=== PATIENT | male | born 1960 | race Caucasian/White ===

== ENCOUNTER 2020-10-09 06:13 | Outpatient (REF) | payer MEDICARE, SELFPAY ==
[2020-10-09 11:35] LABS: Alanine Aminotransferase 36 U/L (0-40); Alkaline Phosphatase 61 U/L (39-117); Aspartate Amino Transferase 20 U/L (5-37); Bilirubin Direct 0.2 mg/dL (0.0-0.5); Bilirubin Total 0.3 mg/dL (0.0-1.0); Blood Urea Nitrogen 28 mg/dL (9-16); Cholesterol 117 mg/dL; Estimated Glomerular Filt Rate > 60; HDL Cholesterol 42 mg/dL; LDL Cholesterol Calculated 49 mg/dl; Total Protein 6.2 g/dL (6.5-8.0); Triglycerides 133 mg/dL
[2020-10-09 11:50] LABS: Reflex LDLD? No
== END 2020-10-09 06:14 | disposition home or self-care (01) ==
LOC: HO.HMGCLDS 06:13
PROVIDERS: PCP Internal Medicine; Visit Provider Internal Medicine
DX: E78.00 Pure hypercholesterolemia, unspecified (principal); R79.9 Abnormal finding of blood chemistry, unspecified
CPT/HCPCS: 80061; 80076; 82565; 84520

== ENCOUNTER 2020-11-15 06:22 | Outpatient (REF) | payer MEDICARE, SELFPAY ==
[2020-11-15 08:47] LABS: Anion Gap 14 (12-20); Blood Urea Nitrogen 33 mg/dL (9-16); Carbon Dioxide 23 mmol/L (22-29); Chloride 106 mmol/L (96-108); Estimated Glomerular Filt Rate > 60; Potassium 5.2 mmol/l (3.3-5.1); Sodium 138 mmol/L (135-145)
== END 2020-11-15 06:23 | disposition home or self-care (01) ==
LOC: HO.LAB 06:22
PROVIDERS: Visit Provider Internal Medicine
DX: R79.89 Other specified abnormal findings of blood chemistry (principal)
CPT/HCPCS: 36415; 80051; 82565; 84520

== ENCOUNTER 2020-12-18 10:32 | Outpatient (REF) | payer MEDICARE, SELFPAY ==
[2020-12-18 12:03] LABS: Blood Urea Nitrogen 26 mg/dL (9-16); Estimated Glomerular Filt Rate > 60; Potassium 4.6 mmol/L (3.3-5.1)
== END 2020-12-18 10:33 | disposition home or self-care (01) ==
LOC: HO.LNP 10:32
PROVIDERS: Visit Provider Internal Medicine
DX: R79.89 Other specified abnormal findings of blood chemistry (principal)
CPT/HCPCS: 82565; 84132; 84520

== ENCOUNTER 2021-03-29 10:48 | Outpatient (REF) | payer MEDICARE, SELFPAY ==
[2021-03-29 11:14] LABS: MANUAL DIFF FLAG NO
[2021-03-29 12:25] LABS: Basophils Absolute Auto 0.1 X10*3/uL (0.0-0.2); Basophils Percent Auto 0.7 % (0-2); Eosinophils Absolute Auto 0.7 X10*3/uL (0.0-0.4); Eosinophils Percent Auto 10.1 % (0-4); Hematocrit 34.6 % (42-52); Hemoglobin 9.8 g/dl (14.0-18.0); Imm Gran Abs Auto 0.02 X10*3/uL (0.00-0.03); Imm Gran Pct Auto 0.3 % (0.0-0.4); Lymphocytes Absolute Auto 1.1 X10*3/uL (1.2-4.9); Lymphocytes Percent Auto 16.7 % (20-40); Mean Corpuscular HGB Conc 28.3 g/dl (31.0-36.0); Mean Corpuscular Hemoglobin 22.4 pg (27.0-33.0); Mean Corpuscular Volume 79.2 fL (80-98); Mean Platelet Volume 11.3 fL (9.4-12.4); Monocytes Absolute Auto 0.8 X10*3/uL (0.1-1.2); Monocytes Percent Auto 11.1 % (2-11); Neutrophils Absolute Auto 4.1 X10*3/uL (2.0-8.3); Neutrophils Percent Auto 61.1 % (45-73); Platelet Count 318 X10*3/uL (160-400); Red Blood Count 4.37 X10*6/uL (4.60-5.80); Red Cell Distribution Width 17.2 % (11.0-16.0); White Blood Count 6.8 X10*3/uL (4.8-10.8)
[2021-03-29 12:37] LABS: Estimated Average Glucose 105 mg/dL; Hemoglobin A1c % 5.3 %
[2021-03-29 12:56] LABS: Alanine Aminotransferase 25 U/L (0-40); Albumin Level 3.7 g/dL (3.5-5.0); Alkaline Phosphatase 72 U/L (39-117); Anion Gap 14 (12-20); Aspartate Amino Transferase 20 U/L (5-37); Bilirubin Total 0.5 mg/dL (0.0-1.0); Blood Urea Nitrogen 19 mg/dL (9-16); Calcium 9.8 mg/dL (8.4-10.2); Carbon Dioxide 22 mmol/L (22-29); Chloride 107 mmol/L (96-108); Estimated Glomerular Filt Rate > 60; Glucose Fasting 104 mg/dL (60-99); Iron 82 mcg/dL (45-160); Percent Iron Saturation 18 % (15-50); Potassium 4.6 mmol/L (3.3-5.1); Sodium 138 mmol/L (135-145); Total Iron Binding Capacity 455 mcg/dL (228-428); Total Protein 5.9 g/dL (6.5-8.0); Unsaturated Iron Binding 373 ug/dL
[2021-03-29 12:57] LABS: Glucose Urine UA NEG (NEG); Leukocyte Esterase Urine NEG (NEG); Nitrite Urine NEG (NEG); Specific Gravity - Urine 1.015 (1.005-1.025); Urine Blood NEG (NEG); Urine Ketones NEG (NEG); Urine Protein NEG (NEG-TRACE)
[2021-03-29 13:06] LABS: Appearance Urine CLEAR; Color Urine YELLOW
[2021-03-29 13:17] LABS: PSA,Total (Free>4and<10) 2.72 ng/mL (0.00-4.00)
[2021-03-29 13:34] LABS: Creatinine Urine 96.25 mg/dL; Microalbum/Creatinine Ratio Ur 10.3 ug/mg cr
== END 2021-03-29 10:49 | disposition home or self-care (01) ==
LOC: HO.LNP 10:48
PROVIDERS: PCP Internal Medicine; Visit Provider Internal Medicine
DX: Z00.00 Encounter for general adult medical examination without abnormal findings (principal); Z12.5 Encounter for screening for malignant neoplasm of prostate; R73.03 Prediabetes; I10 Essential (primary) hypertension; E78.00 Pure hypercholesterolemia, unspecified; D50.9 Iron deficiency anemia, unspecified
CPT/HCPCS: 80053; 81003; 82043; 83036; 83540; 84153; 85025

== ENCOUNTER 2021-10-07 10:06 | Outpatient (REF) | payer MEDICARE, SELFPAY ==
[2021-10-07 11:12] LABS: Alanine Aminotransferase 24 U/L (0-40); Albumin Level 3.6 g/dL (3.5-5.0); Alkaline Phosphatase 62 U/L (39-117); Aspartate Amino Transferase 19 U/L (5-37); Bilirubin Direct < 0.2 mg/dL (0.0-0.5); Bilirubin Total 0.2 mg/dL (0.0-1.0); Blood Urea Nitrogen 22 mg/dL (9-16); Cholesterol 134 mg/dL; Estimated Glomerular Filt Rate > 60; HDL Cholesterol 43 mg/dL; LDL Cholesterol Calculated 63 mg/dl; Total Protein 5.8 g/dL (6.5-8.0); Triglycerides 144 mg/dL
== END 2021-10-07 10:07 | disposition home or self-care (01) ==
LOC: HO.LNP 10:06
PROVIDERS: PCP Internal Medicine; Visit Provider Internal Medicine
DX: E78.00 Pure hypercholesterolemia, unspecified (principal); I50.21 Acute systolic (congestive) heart failure; R79.9 Abnormal finding of blood chemistry, unspecified
CPT/HCPCS: 80061; 80076; 82565; 84520

== ENCOUNTER 2022-04-03 10:29 | Outpatient (REF) | payer OTHER, SELFPAY ==
[2022-04-03 10:34] LABS: MANUAL DIFF FLAG NO
[2022-04-03 11:11] LABS: Basophils Absolute Auto 0.1 X10*3/uL (0.0-0.2); Eosinophils Absolute Auto 0.9 X10*3/uL (0.0-0.4); Eosinophils Percent Auto 10.3 % (0-4); Hematocrit 37.7 % (42.0-52.0); Hemoglobin 10.2 g/dl (14.0-18.0); Imm Gran Abs Auto 0.01 X10*3/uL (0.00-0.03); Imm Gran Pct Auto 0.1 % (0.0-0.4); Lymphocytes Absolute Auto 1.3 X10*3/uL (1.2-4.9); Mean Corpuscular HGB Conc 27.1 g/dl (31.0-36.0); Mean Corpuscular Hemoglobin 20.1 pg (27.0-33.0); Mean Corpuscular Volume 74.4 fL (80.0-98.0); Mean Platelet Volume 10.7 fL (9.4-12.4); Monocytes Absolute Auto 0.7 X10*3/uL (0.1-1.2); Monocytes Percent Auto 7.9 % (2-11); Neutrophils Absolute Auto 5.3 x10*3/uL (2.0-8.3); Neutrophils Percent Auto 64.7 % (45-73); Platelet Count 371 X10*3/uL (160-400); Red Blood Count 5.07 X10*6/uL (4.60-5.80); Red Cell Distribution Width 19.2 % (11.0-16.0); White Blood Count 8.2 X10*3/uL (4.8-10.8)
[2022-04-03 11:13] LABS: Appearance Urine CLEAR; Color Urine YELLOW; Glucose Urine UA NEG (NEG); Leukocyte Esterase Urine NEG (NEG); Nitrite Urine NEG (NEG); Specific Gravity - Urine 1.015 (1.005-1.025); Urine Blood NEG (NEG); Urine Ketones NEG (NEG); Urine Protein NEG (NEG-TRACE)
[2022-04-03 11:17] LABS: Estimated Average Glucose 111 mg/dL; Hemoglobin A1c % 5.5 %
[2022-04-03 11:22] LABS: Alanine Aminotransferase 24 U/L (0-40); Alkaline Phosphatase 73 U/L (39-117); Anion Gap 11 (12-20); Aspartate Amino Transferase 20 U/L (5-37); Bilirubin Total 0.5 mg/dL (0.0-1.0); Blood Urea Nitrogen 15 mg/dL (9-16); Calcium 9.8 mg/dL (8.4-10.2); Carbon Dioxide 26 mmol/L (22-29); Chloride 106 mmol/L (96-108); Cholesterol 113 mg/dL; Estimated Glomerular Filt Rate > 60; Glucose Fasting 115 mg/dL (60-99); HDL Cholesterol 39 mg/dL; Iron 75 mcg/dL (45-160); LDL Cholesterol Calculated 48 mg/dl; Percent Iron Saturation 17 % (15-50); Potassium 4.9 mmol/L (3.3-5.1); Sodium 138 mmol/L (135-145); Total Iron Binding Capacity 442 mcg/dL (228-428); Total Protein 6.4 g/dL (6.5-8.0); Triglycerides 132 mg/dL; Unsaturated Iron Binding 367 ug/dL
[2022-04-03 11:45] LABS: PSA,Total (Free>4and<10) 3.44 ng/mL (0.00-4.00)
[2022-04-03 11:58] LABS: Microalbum/Creatinine Ratio Ur 9.8 ug/mg cr
[2022-04-03 13:43] LABS: Hyaline Casts Urine 0-2 /LPF
[2022-04-03 13:44] LABS: RBC Urine 0 /HPF (0)
== END 2022-04-03 10:30 | disposition home or self-care (01) ==
LOC: HO.LNP 10:29
PROVIDERS: Visit Provider Internal Medicine
DX: Z00.00 Encounter for general adult medical examination without abnormal findings (principal); R73.09 Other abnormal glucose; I10 Essential (primary) hypertension; E78.00 Pure hypercholesterolemia, unspecified; D50.9 Iron deficiency anemia, unspecified; I50.22 Chronic systolic (congestive) heart failure; Z12.5 Encounter for screening for malignant neoplasm of prostate
CPT/HCPCS: 80053; 80061; 81001; 82043; 83036; 83540; 84153; 85025

== ENCOUNTER 2022-05-12 11:17 | Outpatient (REF) | payer OTHER, SELFPAY ==
[2022-05-12 13:44] LABS: MANUAL DIFF FLAG NO
[2022-05-12 13:59] LABS: Basophils Percent Auto 0.6 % (0-2); Eosinophils Absolute Auto 0.8 X10*3/uL (0.0-0.4); Hematocrit 38.7 % (42.0-52.0); Hemoglobin 11.4 g/dl (14.0-18.0); Imm Gran Abs Auto 0.01 X10*3/uL (0.00-0.03); Imm Gran Pct Auto 0.1 % (0.0-0.4); Lymphocytes Absolute Auto 1.5 X10*3/uL (1.2-4.9); Lymphocytes Percent Auto 22.6 % (20-40); Mean Corpuscular HGB Conc 29.5 g/dl (31.0-36.0); Mean Corpuscular Hemoglobin 22.2 pg (27.0-33.0); Mean Corpuscular Volume 75.3 fL (80.0-98.0); Mean Platelet Volume 11.1 fL (9.4-12.4); Monocytes Absolute Auto 0.7 X10*3/uL (0.1-1.2); Monocytes Percent Auto 10.1 % (2-11); Neutrophils Absolute Auto 3.8 x10*3/uL (2.0-8.3); Neutrophils Percent Auto 55.6 % (45-73); Platelet Count 279 X10*3/uL (160-400); Red Blood Count 5.14 X10*6/uL (4.60-5.80); Red Cell Distribution Width 21.2 % (11.0-16.0); White Blood Count 6.8 X10*3/uL (4.8-10.8)
[2022-05-12 14:07] LABS: Prothrombin Time 11.2 SEC (10.0-13.1)
[2022-05-12 14:08] LABS: Anion Gap 11 (12-20); Blood Urea Nitrogen 22 mg/dL (9-16); Calcium 10.4 mg/dL (8.4-10.2); Carbon Dioxide 24 mmol/L (22-29); Chloride 107 mmol/L (96-108); Estimated Glomerular Filt Rate > 60; Glucose Random 91 mg/dL (60-115); Potassium 4.6 mmol/L (3.3-5.1); Sodium 137 mmol/L (135-145)
== END 2022-05-12 11:18 | disposition home or self-care (01) ==
LOC: HO.HMGCLDS 11:17
PROVIDERS: PCP Internal Medicine; Visit Provider Internal Medicine Cardiovascular Disease
DX: I50.9 Heart failure, unspecified (principal); Z79.01 Long term (current) use of anticoagulants
CPT/HCPCS: 36415; 80048; 85025; 85610

== ENCOUNTER 2022-05-21 06:03 | Day surgery (SDC) | payer MEDICARE, SELFPAY ==
[2022-05-15 09:47] VITALS: BMI 34.7
[2022-05-21] VITALS (20 sets, daily range): BP systolic 81–140; BP diastolic 40–97; PULSE 62–97; RESP 7–20; TEMP 36.1–36.8; O2SAT 93–98
--- NOTE | ~2022-05-21 | FL_ITS ---
EXAMINATION: XR FLUOROSCOPY WITH IMAGES CLINICAL INFORMATION: ICD placement. COMPARISON: None. TECHNIQUE: Fluoroscopy performed by Dr. Bernie Larsen. Fluoroscopy time: 12.2 minutes. Cumulative Dose: 300 mGy. DAP: 66.3 Gy-cm2. Images: 3. FINDINGS: There are 3 digital images obtained of the chest revealing dual pacer electrodes in the right ventricle. There is a third pacer electrode in the right atrium.. FL/FL guidance in OR IMPRESSION: Fluoroscopy guidance provided to referrer for ICD placement..
--- NOTE | ~2022-05-21 | XR_ITS ---
EXAMINATION: XR CHEST CLINICAL INFORMATION: Rule out pneumothorax. COMPARISON: 05/21/2022 chest radiograph. TECHNIQUE: 2 views of the chest were obtained. FINDINGS: Support devices: Left-sided pacemaker device appears in good position without significant change. No significant abnormality is noted involving the heart, lungs, mediastinum, bony thorax or soft tissues. XR/XR chest 2V IMPRESSION: No acute cardiopulmonary process.
--- NOTE | ~2022-05-21 | XR_ITS ---
EXAMINATION: XR CHEST CLINICAL INFORMATION: ICD. COMPARISON: 01/11/2017 chest radiographs. TECHNIQUE: Frontal view of the chest was obtained. FINDINGS: Support devices: Left-sided dual-lead pacemaker with intact leads overlying of the right ventricle. The lungs are clear. The heart and mediastinal structures are unremarkable. XR/XR chest 1V IMPRESSION: No acute cardiopulmonary process.
[2022-05-21] MEDS: Lactated Ringers 1,000 ML 50 ML IVCONT (06:39)
[2022-05-21 07:10] LABS: IDNOW Serial# 16C4AD1C
[2022-05-21 07:11] LABS: COVID-19 Test Negative (Negative)
--- NOTE | 2022-05-21 07:25 | HO.ANESPROP2 ---
HPI - Anesthesia Eval Consult details Narrative: 61 M for RV ICD lead insertion CAD s/p 2 stents . HF , s/p colectomy , EF 25 % BP 96/50 in pre op . Asymptomatic , normal mentation .Case discussed with with Dr Larsen , he usually runs on the lower side and this is normal for him . GERD PMFSH Past Medical History Medical History (Updated 05/21/22 @ 12:57 by Colton Ojeda MD) CAD (coronary artery disease) CHF (congestive heart failure) COVID-19 vaccine series completed Diverticulitis Elevated cholesterol GERD (gastroesophageal reflux disease) HTN (hypertension) Iron deficiency anemia Ischemic cardiomyopathy Myocardial infarction Pre-diabetes Family History Family history of problems with anesthesia: No Surgical History Surgical History H/O colonoscopy History of cardiac defibrillator placement History of colostomy reversal History of esophagogastroduodenoscopy (EGD) History of incisional hernia repair History of laparotomy Hx of exploratory laparotomy Hx of heart artery stent History of Problems with Anesthesia: No Social History Social History Patient Tobacco Use Status: Former Tobacco user Quit Date: 5 yrs ago Tobacco use type: Cigarette Use of substances other than those prescribed or required for medical reasons: No Are you DNR?: No Advance Directives: No Advance Directives Information Provided: No Meds Allergies Allergy/AdvReac Type Severity Reaction Status Date / Time No Known Allergies Allergy Verified 05/21/22 07:03 Active Medications: Current Medications Lactated Ringer's (Lr) 1,000 mls @ 50 mls/hr IVCONT .Q20H SARANYA Last Admin: 05/21/22 06:39 Dose: 50 mls/hr Home Medications Medication Instructions Recorded Confirmed Last Taken Type aspirin 81 mg tablet,delayed 1 tab PO DAILY 05/15/22 05/15/22 05/16/22 History release atorvastatin 40 mg tablet 1 tab PO DAILY 05/15/22 05/15/22 Unknown History ferrous sulfate 325 mg (65 mg 325 mg PO DAILY 05/15/22 05/15/22 Unknown History iron) tablet (Iron (ferrous sulfate)) furosemide 40 mg tablet 1 tab PO BID 05/15/22 05/15/22 Unknown History metoprolol succinate 25 mg 1 tab PO BID 05/15/22 05/15/22 05/21/22 04:30 History tablet,extended release 24 hr sacubitril 97 mg-valsartan 103 mg 1 tab PO BID 05/15/22 05/15/22 05/21/22 04:30 History tablet (Entresto) spironolactone 25 mg tablet 1 tab PO DAILY 05/15/22 05/15/22 Unknown History clopidogrel 75 mg tablet 1 tab PO DAILY 05/21/22 05/21/22 05/16/22 History Exam Exam Date and Time: May 21, 2022 0725 Height,Weight and Vital Signs: Height 5 ft 7.5 in Weight 102.058 kg Last Vital Signs Temp 97.0 F 05/21/22 06:30 Pulse 62 05/21/22 06:30 Resp 20 05/21/22 06:30 BP 86/47 L 05/21/22 06:30 Pulse Ox 97 05/21/22 06:30 O2 Del Method 05/21/22 06:30 Pertinent Lab Results Pertinent Lab Results: Laboratory Tests 05/21/22 06:25 COVID-19 ([facility]) Negative COVID-19 Clin Com See Note Airway Mallampati Class: IV TM Dist: >3cm Neck ROM: Full Denture: Upper Partial: Lower Loose/Missing/Broken Teeth: Yes Heart: S1,S2 Lungs: b/l breath sounds Assessment and Plan Assessment Anesthesia Assessment: Anesthesia Plan Discussed and Chart Reviewed Final Anesthetic Review Family History of Problems with Anesthesia: No History of Problems with Anesthesia: No NPO: Yes ASA Class: III Final Preanesthetic Review: Meds/Allgs Chart Reviewed, Consent Obtained/Reviewed and Anes Risks/Benef Reviewed Patient Risk: Intermediate Procedure Risk: Intermediate Anesthetic Plan Anesthetic Plan: MAC: Disposition: Extended PACU
--- NOTE | 2022-05-21 10:34 | PM.OP ---
Brief Operative Note Date of Service: 05/21/22 Pre-op diagnosis: ischemic cardiomyopathy with EF 20-25%, CAD s/p PCI in 2017, single chamber ICD placed in 2017 with lead malfunctioning with high impedance and threshold with suspected lead fracture Procedure: New RV ICD lead implantation Surgeon: Bernie Larsen MD Anesthesia: MAC Was an Surveillance System Monitor used for this Procedure?: No Estimated blood loss (mL): 50 Disposition: floor
--- NOTE | 2022-05-21 10:36 | P.OP_ITS ---
Operative Note Operative Note Date of Service: 05/21/22 Narrative: Narrative: Narrative: Procedure: RV ICD lead implantation, venogram Indication: ischemic cardiomyopathy with systolic heart failure and EF 20-25%, class III HF Procedure The risks, benefits, complications, alternatives and expected outcomes were discussed with the patient. Patient was prepped and draped in the usual sterile fashion. Venogram was performed to confirm the left axillary vein was patent and was confirmed to be widely patent. After the antibiotic was infused, lidocaine was infiltrated medial to the deltopectoral groove. An incision was made. The incision was extended to the prepectoral fascia using blunt dissection. The lead was positioned in the RV. Multiple different positions were obtained before we found R waves that were above 20. Appropriate sensing and thresholds were obtained. No diaphragmatic pacing occurred at high outputs. The lead was sutured to the muscle using 3 ties. Lead measurements were rechecked. A left prepectoral pocket was fashioned.? The lead was attached to the previously implanted generator. The system was placed in the pocket. The ICD was checked under fluoroscopy with adrquate slack noted noted. The pin of the lead was beyond the set screws. The prior RV ICD lead was capped and tied to the bottom of the pocket. Hemostasis was verified. The pocket was closed with 3 layers. Steristrips and tegaderm were applied Device: Intica 7 VR-T DX serial number [id number] New RV ICD lead: Plexa Pro MRI DF-1 S DX 65/15 serial number [id number] Pacing impedance 607 ohms HV impedance 101 ohms, checked multiple times and noted to be stable Threshold 0.4 V at 0.5 ms R waves 24.2 P waves 7.2 Programmed VVI 40 VF therapy >200 BPM ATP during charging, 35Jx6 VT monitor zone at 150 BPM Plan No heparin subq or lovenox Ok to continue aspirin 81 and plavix CXR today and tomorrow to r/o pneumothorax continue home medications Ancef 2 grams x 2 doses q8 hours ordered Patient will stay overnight and have repeat interrogation and be seen by cardiology consult service tomorrow before discharge Tegaderm dressing to stay on for 5 days, no showering for 5 days Wound instructions to be placed in DC instructions: Pacemaker/ICD Instructions Dr. Bernie Booker and [facility] Leave dressing on for 5 days. Do not shower or get the area wet for 5 days. Once you remove the dressing, there will be steri-strips in place. Do not peel off, they will fall off. Hand washing is a must when caring for your incision to prevent infections. Avoid touching your incision or using lotions, creams, or ointments until it is healed (2-4 weeks). Activity Limit the movement of your arm on the same side as the pacemaker but do not stop moving it. Avoid stretching that arm over your head or shoulder-level or lift or carry anything heavier than 5 lbs with the left arm for 6 weeks Avoid golfing, swimming, tennis, bowling, shoveling snow or mowing the lawn for [address] for 2 weeks Follow-up instructions If you do not already have a scheduled follow-up appointment, please call [phone] for the [place] office or [phone] for the [place] office Pleaes keep the identification card for the device with you, it will be useful when you go through security during flights. Please plug in your home monitor and leave it at your bedside. Call device company if you need assistance plugging in the monitor. Please tell all your healthcare providers you have a pacemaker, especially before procedures or before a MRI. Call your doctor if you have any redness, swelling, pus from incision site, fever of 101 degrees. If you have any bleeding from the incision site, lie down and put pressure on the incision site for 30 minutes. If this does not resolve, please get transportation to the closest hospital but do not drive yourself. Bernie Larsen Electrophysiology/Cardiology Attending
--- NOTE | 2022-05-21 10:37 | HE.PHANOTE ---
RE CEFAZOLIN PER DR CELIS, CEFAZOLIN PREOP @0800, THEN TWO CEFAZOLIN 2 GRAM POST OP DOSES 8 HOURS APART @1600 AND MIDNIGHT
--- NOTE | 2022-05-21 10:52 | PHA.MEDREC ---
Pharmacy Consult ? Medication Reconciliation Pharmacy has reviewed the medication reconciliation completed by nursing. There are no remakable issue for provider's attention. Daysi Martin, PharmD
--- NOTE | 2022-05-21 12:08 | PM.IMHP ---
History of Present Illness Date of Service: 05/21/22 Chief Complaint: post AICD placement This is a 61 year old male, who is a vague historian, is s/p AICD placement. Medical history is obtained from the patient and the chart. Pt has a history of ICM with HFrEF -- EF 20-25%, class III HF who is scheduled AICD placement. The patient will be observed over night. The patient himself reports no compaints at this time. He denies chest pain, shortness of breath, cough. Denies fevers or chills. Of note, the patients BP has been running in the 80s and 90s without symptoms. He reports that this is normal for him Review of Systems Review of Systems: negative except HPI [facility] Medical History (Updated 05/21/22 @ 12:57 by Colton Ojeda MD) CAD (coronary artery disease) CHF (congestive heart failure) COVID-19 vaccine series completed Diverticulitis Elevated cholesterol GERD (gastroesophageal reflux disease) HTN (hypertension) Iron deficiency anemia Ischemic cardiomyopathy Myocardial infarction Pre-diabetes Surgical History H/O colonoscopy History of cardiac defibrillator placement History of colostomy reversal History of esophagogastroduodenoscopy (EGD) History of incisional hernia repair History of laparotomy Hx of exploratory laparotomy Hx of heart artery stent Social History Patient Tobacco Use Status: Former Tobacco user Quit Date: 5 yrs ago Tobacco use type: Cigarette Use of substances other than those prescribed or required for medical reasons: No Are you DNR?: No Advance Directives: No Advance Directives Information Provided: No Meds Allergies Allergy/AdvReac Type Severity Reaction Status Date / Time No Known Allergies Allergy Verified 05/21/22 07:03 Active Medications: Current Medications Fentanyl (Fentanyl Citrate/Pf 100 Mcg/2 Ml Vial) 25 mcg IVPUSH Q5M PRN; Protocol PRN Reason: Pain, Moderate (Pain Scale 4-6 Lactated Ringer's (Lr) 1,000 mls @ 50 mls/hr IVCONT .Q20H SARANYA Last Admin: 05/21/22 06:39 Dose: 50 mls/hr Cefazolin Sodium/Dextrose (Ancef) 2 gm in 50 mls @ 100 mls/hr IV Q8H [facility] Stop: 05/22/22 00:29 Ondansetron HCl (Ondansetron Hcl 4 Mg/2 Ml Vial) 4 mg IVPUSH ONCE PRN PRN Reason: Nausea and Vomiting Sodium Chloride (0.9 % Sodium Chloride Flush 3 Ml Syringe) 3 ml IVFLUSH [facility] Home Medications Medication Instructions Recorded Confirmed Last Taken Type aspirin 81 mg tablet,delayed 1 tab PO DAILY 05/15/22 05/15/22 05/16/22 History release atorvastatin 40 mg tablet 1 tab PO DAILY 05/15/22 05/15/22 Unknown History ferrous sulfate 325 mg (65 mg 325 mg PO DAILY 05/15/22 05/15/22 Unknown History iron) tablet (Iron (ferrous sulfate)) furosemide 40 mg tablet 1 tab PO BID 05/15/22 05/15/22 Unknown History metoprolol succinate 25 mg 1 tab PO BID 05/15/22 05/15/22 05/21/22 04:30 History tablet,extended release 24 hr sacubitril 97 mg-valsartan 103 mg 1 tab PO BID 05/15/22 05/15/22 05/21/22 04:30 History tablet (Entresto) spironolactone 25 mg tablet 1 tab PO DAILY 05/15/22 05/15/22 Unknown History clopidogrel 75 mg tablet 1 tab PO DAILY 05/21/22 05/21/22 05/16/22 History Physical Exam Vital Signs and Narrative: Vital Signs: Last Vital Signs Temp 97.1 F 05/21/22 10:28 Pulse 64 05/21/22 11:58 Resp 16 05/21/22 11:58 BP 107/65 05/21/22 11:58 Pulse Ox 98 05/21/22 11:58 O2 Del Method 05/21/22 11:58 O2 Flow Rate 2 05/21/22 11:58 BMI result Body Mass Index 34.7 Const: Other: Constitutional - Awake and Alert, No apparent distress Eyes - PERRLA, EOMI Cardiovascular - S1S2, RRR, No edema; L chest wall dressing in place, c/d/i Respiratory - Normal lung expansion, Normal respiratory effort, No respiratory distress, CTA bilaterally Gastrointestinal - NT / ND; +BS; No rebound or guarding - No CVA tenderness Extremities - no calf tenderness bilaterally, no swelling Musculoskeletal - Normal inspection, normal ROM Skin - Warm/Dry Neurological - Alert & oriented x3, No focal deficit Psychological - Appropriate affect Results Labs Labs: Laboratory Results - last 24 hr 05/21/22 06:25 COVID-19 ([facility]LE[facility]) Negative COVID-19 Clin Com See Note Imaging Radiologist's Impressions: Impressions Chest X-Ray 05/21/22 10:54 IMPRESSION: No acute cardiopulmonary process. Assessment and Plan (1) Ischemic cardiomyopathy: Status: Acute Plan This is a 61 yo M with a PMH of ischemic cardiomyopathy with an EF of 20-25% who is s/p AICD placement. He will be admitted for overnight observation and device check in the AM. 1. Chronic HFrEF (20-25%) due to ishcemic CMP 1a. CAD s/p stenting x 2 1a. s/p AICD placement aspiring / plavix okay per Dr. Larsen; pt reports he was told to stop plavix recently by his cardiology BP on the softer side -- per pt history, normal for him will hold antihypertensives/neurohormonals tonight Cardiology consulted CXR today completed -- wnl; repeat tomorrow 2. Pre-DM not on meds diabetic diet Continue baseline meds as appropriate. Full Code DVT pptx -- mechanical Quality Stroke Does the patient have a stroke diagnosis?: No VTE Prior VTE?: No VTE Risk Level:: Medical - moderate - high VTE Device Contraindication: N/A - Device Ordered VTE Drug Contraindication: Treatment Not Tolerated
[2022-05-21] MEDS: ceFAZolin Sodium/Dextrose,Iso 2 GM/50 ML PIGGYBACK IV (16:40)
--- NOTE | 2022-05-21 17:20 | PC.NURSE ---
dr. miner consulted regarding patient sbp 85. baseline preop 88,. hospitalist dr. prasad noted in h&p asymptomatic baseline spb 80-low 90's
[2022-05-21] MEDS: 0.9 % Sodium Chloride Flush 3 ML SYRINGE IVFLUSH (20:39)
[2022-05-22] VITALS: BP 95/56; PULSE 69; RESP 18; TEMP 36.2; O2SAT 96
[2022-05-22] MEDS: ceFAZolin Sodium/Dextrose,Iso 2 GM/50 ML PIGGYBACK IV (00:23)
[2022-05-22 03:59] VITALS: BP 103/60; PULSE 73; RESP 18; TEMP 36.8; O2SAT 96
[2022-05-22 07:45] VITALS: BP 122/72; PULSE 65; RESP 20; TEMP 36.2; O2SAT 98
--- NOTE | 2022-05-22 08:54 | MHC.CM.PN ---
Addendum entered by Nancy Singer 05/22/22 15:10: Patient is discharged to home no services ordered. Patients sister provided transportation home. Original Note: Male 61 S/P ICD placement and removal of device and fx wire; which was inserted 2017 per EMR. He lives alone. He is independent with all functional mobility. DP home no services ordered. Patients sister will provide transportation home. He has been vax 3x Moderna. A copy of his HCP was requested.
--- NOTE | 2022-05-22 09:53 | PM.CNCAR ---
History of Present Illness History of Present Illness Date of Service: 05/22/22 Chief complaint: Heart failure, unspecified Narrative: This is a cardiology consultation status post ICD implantation. Patient has a history of ischemic cardiomyopathy with an EF in the 20 20% range. Had a single-chamber ICD in 2017. Apparently lead malfunction with high impedance and threshold and there was suspicion for lead fracture. Hence he underwent new RV ICD lead implantation as today. Today he reports no complaints and states he feels good. Review of Systems Review of Systems: Yes all other systems are reviewed and are negative Constitutional: Constitutional: Reports as per HPI Eyes: Eyes: Reports as per HPI ENT: Reports as per HPI Cardiovascular: Cardiovascular: Reports as per HPI, Denies acrocyanosis, Denies cool extremities, Denies chest pain, Denies leg edema, Denies lightheadedness, Denies palpitations and Denies dyspnea Respiratory: Respiratory: Reports as per HPI, Reports no additional respiratory complaints and Denies dyspnea Gastrointestinal: Gastrointestinal: Reports as per HPI and Reports no additional gastrointestinal complaints Genitourinary: Genitourinary: Reports no additional male genitourinary complaints and Reports as per HPI Musculoskeletal: Musculoskeletal: Reports no additional musculoskeletal complaints and Reports as per HPI Integumentary/Breasts: Skin/Breast: Reports system reviewed and no additional complaints, except as docu Neurologic: Reports system reviewed and no additional complaints, except as documented and Reports as per HPI Psychiatric: Psychiatric: Reports no additional psychiatric complaints and Reports as per HPI Endocrine: Endocrine: Reports no additional endocrine complaints, Reports as per HPI and Denies palpitations Hematologic/Lymphatic: Hematologic/Lymphatic: Reports no additional hematologic/lymphatic complaints and Reports as per HPI Allergic/Immunologic: Allergic/Immunologic: Reports no additional allergic/immunologic complaints and Reports as per HPI [facility] Past Medical History Medical History (Updated 05/21/22 @ 12:57 by Colton Ojeda MD) CAD (coronary artery disease) CHF (congestive heart failure) COVID-19 vaccine series completed Diverticulitis Elevated cholesterol GERD (gastroesophageal reflux disease) HTN (hypertension) Iron deficiency anemia Ischemic cardiomyopathy Myocardial infarction Pre-diabetes Family History Family History (Updated 05/22/22 @ 10:53 by Tucker Crawford MD) Father Lung cancer Surgical History Surgical History (Updated 05/22/22 @ 10:53 by Tucker Crawford MD) H/O colonoscopy History of cardiac defibrillator placement History of colostomy reversal History of esophagogastroduodenoscopy (EGD) History of incisional hernia repair History of laparotomy Hx of exploratory laparotomy Hx of heart artery stent Social History Social History Patient Tobacco Use Status: Former Tobacco user Quit Date: 5 yrs ago Tobacco use type: Cigarette Use of substances other than those prescribed or required for medical reasons: No Currently Displaying Signs/Symptoms of Drug Intoxication Withdrawal: No Are you DNR?: No Advance Directives: No Advance Directives Information Provided: No service: No Current occupational status: unemployed Meds Allergies Allergy/AdvReac Type Severity Reaction Status Date / Time No Known Allergies Allergy Verified 05/21/22 07:03 Active Medications: Current Medications Aspirin (Aspirin Enteric Coated 81 Mg Tablet.Dr) 81 mg PO DAILY [facility] Atorvastatin Calcium (Atorvastatin Calcium 40 Mg Tablet) 40 mg PO DAILY [facility] Clopidogrel Bisulfate (Clopidogrel Bisulfate 75 Mg Tablet) 75 mg PO DAILY [facility] Ondansetron HCl (Ondansetron Hcl 4 Mg/2 Ml Vial) 4 mg IVPUSH ONCE PRN PRN Reason: Nausea and Vomiting Sodium Chloride (0.9 % Sodium Chloride Flush 3 Ml Syringe) [facility] Last Admin: 05/21/22 20:39 Dose: 3 ml Home Medications Medication Instructions Recorded Confirmed Last Taken Type aspirin 81 mg tablet,delayed 1 tab PO DAILY 05/15/22 05/15/22 05/16/22 History release atorvastatin 40 mg tablet 1 tab PO DAILY 05/15/22 05/15/22 Unknown History ferrous sulfate 325 mg (65 mg 325 mg PO DAILY 05/15/22 05/15/22 Unknown History iron) tablet (Iron (ferrous sulfate)) furosemide 40 mg tablet 1 tab PO BID 05/15/22 05/15/22 Unknown History metoprolol succinate 25 mg 1 tab PO BID 05/15/22 05/15/22 05/21/22 04:30 History tablet,extended release 24 hr sacubitril 97 mg-valsartan 103 mg 1 tab PO BID 05/15/22 05/15/22 05/21/22 04:30 History tablet (Entresto) spironolactone 25 mg tablet 1 tab PO DAILY 05/15/22 05/15/22 Unknown History clopidogrel 75 mg tablet 1 tab PO DAILY 05/21/22 05/21/22 05/16/22 History Physical Exam Vital Signs: Vital Signs: Last Vital Signs Temp 97.1 F 05/22/22 07:45 Pulse 65 05/22/22 07:45 Resp 20 05/22/22 07:45 BP 122/72 05/22/22 07:45 Pulse Ox 98 05/22/22 07:45 O2 Del Method 05/22/22 07:45 O2 Flow Rate 2 05/21/22 13:00 BMI result Body Mass Index 34.7 Const: General: comfortable and no acute distress Orientation/consciousness: patient oriented x3 HEENT: Other: Unremarkable Head: Yes normal to inspection Neck: Neck: Yes normal visual inspection Chest: Chest palpation & inspection: normal inspection of the chest Resp: Auscultation: clear to auscultation bilaterally Cardio: Palpation: normal PMI Heart sounds: S1 normal heart sound present, S2 normal heart sound present, no gallops, no murmurs and no rubs GI: Palpation (GI): Soft to palpation Back/Spine/Pelvis: Other: unremarkable Skin: General skin exam: no rashes or lesions noted Neuro: General: patient oriented x3 Extrem: General: Yes normal to inspection Psych: Mental Status: mental status grossly normal Objective Imaging Radiologist's impression: Impressions Chest X-Ray 05/21/22 10:54 IMPRESSION: No acute cardiopulmonary process. Assessment and Plan (1) Ischemic cardiomyopathy: Status: Acute (2) Status post other internal cardiac defibrillator procedure: Status: Acute Plan Per , ICD interrogation looks to be within normal limits. On clinical examination, the ICD site looks healthy. No signs of bleeding or infection. Chest x-ray still pending. If that is unremarkable, then discharged home and follow up with primary Cardiology. Procedures Date of Service Date of Service: 05/22/22
[2022-05-22] MEDS: Atorvastatin Calcium 40 MG TABLET PO (10:18)
[2022-05-22] MEDS: 0.9 % Sodium Chloride Flush 3 ML SYRINGE IVFLUSH (10:18)
[2022-05-22] MEDS: Aspirin Enteric Coated 81 MG TABLET.DR PO (10:18)
[2022-05-22] MEDS: Clopidogrel Bisulfate 75 MG TABLET PO (10:18)
[2022-05-22 11:22] VITALS: BP 96/60; PULSE 85; RESP 20; TEMP 36.4; O2SAT 96
--- NOTE | 2022-05-22 14:17 | P.DS_ITS ---
DS: Providers Provider Date of Service: 05/22/22 Date of discharge: 05/22/22 Primary care physician: Blayne Sampson MD Consults: 05/21/22 12:07 Consult to Cardiology Routine Consulting Provider: Tucker Crawford Reason for consultation: AICD placement Attending physician on discharge: Colton Ojeda Discharging clinician: Emelia Duffy DS: Diagnosis Discharge Diagnosis (1) Ischemic cardiomyopathy: Status: Acute (2) Status post other internal cardiac defibrillator procedure: Status: Acute DS: Summary Hospital Course Hospital Course: From H&P on day of admission This is a 61 year old male, who is a vague historian, is s/p AICD placement. Medical history is obtained from the patient and the chart. Pt has a history of ICM with HFrEF -- EF 20-25%, class III HF who is scheduled AICD placement. The patient will be observed over night. The patient himself reports no compaints at this time. He denies chest pain, shortness of breath, cough. Denies fevers or chills. Of note, the patients BP has been running in the 80s and 90s without symptoms. He reports that this is normal for him Patient was admitted overnight for observation. ICD was interrogated and noted to be working appropriately. Repeat chest x-ray was obtained and showed no evidence of pneumothorax. He was evaluated by Cardiology and ICD site looked clean with no erythema. He will be discharged home in stable condition. Should follow up with Cardiology outpatient. Blood pressure is on lower side overnight and his medications were placed on hold. BP improved this am and likely always on lower side. Time Spent with Patient Time attestation: Total time spent providing and/or coordinating discharge services: Discharge coordination time: Greater than 30 minutes Quality: Safe Use of Opioids Does Pt have an Active Cancer Diagnosis on the Problem List?: No Quality: Stroke Does the patient have a stroke diagnosis?: No Physical Exam Vital Signs: Vital Signs: Last Vital Signs Temp 97.6 F 05/22/22 11:22 Pulse 85 05/22/22 11:22 Resp 20 05/22/22 11:22 BP 96/60 05/22/22 11:22 Pulse Ox 96 05/22/22 11:22 O2 Del Method 05/22/22 11:22 O2 Flow Rate 2 05/21/22 13:00 BMI result Body Mass Index 34.7 Const: General: cooperative, comfortable, alert and awake Nutritional Appearance: overweight Orientation/consciousness: patient oriented x3 Chest: Other: ICD site clean and dry Resp: Effort & Inspection: normal respiratory effort Auscultation: clear to auscultation bilaterally Cardio: Rate: regular rate Heart sounds: S1 normal heart sound present and S2 normal heart sound present Neuro: General: patient oriented x3 Extrem: General: Yes no pedal edema Discharge Plan Discharge Patient Disposition: Home, Self-Care Referrals: Blayne Sampson MD [Primary Care Provider] - 1 Week Discharge Medications: Continued furosemide 40 mg tablet 1 tab PO BID atorvastatin 40 mg tablet 1 tab PO DAILY aspirin 81 mg tablet,delayed release (DR/EC) 1 tab PO DAILY spironolactone 25 mg tablet 1 tab PO DAILY ferrous sulfate [Iron (ferrous sulfate)] 325 mg (65 mg iron) Tablet 325 mg PO DAILY metoprolol succinate 25 mg tablet extended release 24 hr 1 tab PO BID Entresto 97-103 mg tablet 1 tab PO BID clopidogrel 75 mg tablet 1 tab PO DAILY Discharge Orders: Discharge Order (Routine); Ordered 05/22/22 Ordered By: Emelia Duffy Activity Restrictions/Additional Instructions: Pacemaker/ICD Instructions Dr. Bernie Booker and [facility] Leave dressing on for 5 days. Do not shower or get the area wet for 5 days. Once you remove the dressing, there will be steri-strips in place. Do not peel off, they will fall off. Hand washing is a must when caring for your incision to prevent infections. Avoid touching your incision or using lotions, creams, or ointments until it is healed (2-4 weeks). Activity Limit the movement of your arm on the same side as the pacemaker but do not stop moving it. Avoid stretching that arm over your head or shoulder-level or lift or carry anything heavier than 5 lbs with the left arm for 6 weeks Avoid golfing, swimming, tennis, bowling, shoveling snow or mowing the lawn for [address] for 2 weeks Follow-up instructions If you do not already have a scheduled follow-up appointment, please call [phone] for the [place] office or [phone] for the [place] office Pleaes keep the identification card for the device with you, it will be useful when you go through security during flights. Please plug in your home monitor and leave it at your bedside. Call device company if you need assistance plugging in the monitor. Please tell all your healthcare providers you have a pacemaker, especially before procedures or before a MRI. Call your doctor if you have any redness, swelling, pus from incision site, fever of 101 degrees. If you have any bleeding from the incision site, lie down and put pressure on the incision site for 30 minutes. If this does not resolve, please get transportation to the closest hospital but do not drive yourself. Discharge Date/Time: 05/22/22 15:14
--- NOTE | 2022-05-22 15:46 | HO.POSTANES ---
Post Anesthesia Evaluation Post Anesthesia Evaluation Vital Signs: Vital Signs Temp Pulse Resp BP Pulse Ox O2 Del Method 05/22/22 10:24 Room Air 05/22/22 11:22 97.6 F 85 20 96/60 96 Room Air 05/22/22 07:45 97.1 F 65 20 122/72 98 Room Air 05/22/22 03:59 98.2 F 73 18 103/60 96 Room Air Anesthesia: Monitored Mental Status: Awake Pain Control: Satisfactory Nausea/Vomiting: None Hydration: Adequate Anesthesia-Related Issues: No Anes. Related Issues
== END 2022-05-22 15:14 | disposition home or self-care (01) ==
LOC: HO.SSS 06:06 → HO.IMC 18:09
PROVIDERS: Anesthesiology; Internal Medicine Cardiovascular Disease; PCP Internal Medicine; Visit Provider Physician Assistant Medical
PROC: (CPT 33216; principal; 2022-05-21 07:30)
DX: I11.0 Hypertensive heart disease with heart failure (principal); I50.22 Chronic systolic (congestive) heart failure; I25.5 Ischemic cardiomyopathy; Z95.0 Presence of cardiac pacemaker; I25.2 Old myocardial infarction; E78.00 Pure hypercholesterolemia, unspecified; D50.9 Iron deficiency anemia, unspecified; K21.9 Gastro-esophageal reflux disease without esophagitis; R73.03 Prediabetes; Z79.82 Long term (current) use of aspirin; Z79.899 Other long term (current) drug therapy; Z87.891 Personal history of nicotine dependence; Z20.822 Contact with and (suspected) exposure to COVID-19
CPT/HCPCS: 33216; 71045; 71046; 87635; C1777; C1892; J0690; J2250; J2370; J3010; J3370; Q9967

== ENCOUNTER → 2022-08-20 12:03 | Outpatient (BNVA) | payer MEDICARE, SELFPAY | PROVIDERS: PCP Internal Medicine; Referring Provider Internal Medicine; Visit Provider Nurse Practitioner | DX: K62.5 Hemorrhage of anus and rectum (principal) | CPT/HCPCS: 99202 ==

== ENCOUNTER 2022-10-02 07:41 | Outpatient (REF) | payer MEDICARE, SELFPAY ==
[2022-10-02 11:41] LABS: Basophils Absolute Auto 0.1 X10*3/uL (0.0-0.2); Basophils Percent Auto 1.1 % (0-2); Eosinophils Absolute Auto 1.6 X10*3/uL (0.0-0.4); Eosinophils Percent Auto 21.1 % (0-4); Hematocrit 35.4 % (42.0-52.0); Hemoglobin 10.1 g/dl (14.0-18.0); Imm Gran Abs Auto 0.02 X10*3/uL (0.00-0.03); Imm Gran Pct Auto 0.3 % (0.0-0.4); Lymphocytes Absolute Auto 1.3 X10*3/uL (1.2-4.9); Lymphocytes Percent Auto 17.4 % (20-40); MANUAL DIFF FLAG SCAN; Mean Corpuscular HGB Conc 28.5 g/dl (31.0-36.0); Mean Corpuscular Hemoglobin 21.4 pg (27.0-33.0); Mean Platelet Volume 11.3 fL (9.4-12.4); Monocytes Absolute Auto 0.5 X10*3/uL (0.1-1.2); Monocytes Percent Auto 6.6 % (2-11); Neutrophils Absolute Auto 4.1 x10*3/uL (2.0-8.3); Neutrophils Percent Auto 53.5 % (45-73); Platelet Count 332 X10*3/uL (160-400); Red Blood Count 4.72 X10*6/uL (4.60-5.80); Red Cell Distribution Width 16.1 % (11.0-16.0); SCAN SMEAR FLAG 1; White Blood Count 7.6 X10*3/uL (4.8-10.8)
[2022-10-02 12:15] LABS: Alanine Aminotransferase 22 U/L (0-40); Albumin Level 3.9 g/dL (3.5-5.0); Alkaline Phosphatase 65 U/L (39-117); Anion Gap 12 (12-20); Aspartate Amino Transferase 18 U/L (5-37); Bilirubin Total 0.5 mg/dL (0.0-1.0); Blood Urea Nitrogen 30 mg/dL (9-16); Carbon Dioxide 24 mmol/L (22-29); Chloride 108 mmol/L (96-108); Cholesterol 120 mg/dL; Estimated Glomerular Filt Rate 59; Glucose Random 105 mg/dL (60-115); HDL Cholesterol 37 mg/dL; LDL Cholesterol Calculated 59 mg/dl; Potassium 4.8 mmol/L (3.3-5.1); Sodium 139 mmol/L (135-145); Triglycerides 121 mg/dL
[2022-10-02 12:40] LABS: SLIDE REVIEW VERIFIED
[2022-10-02 13:00] LABS: Estimated Average Glucose 108 mg/dL; Hemoglobin A1c % 5.4 %
[2022-10-06 12:29] LABS: NT-proBNP 308 pg/mL
== END 2022-10-02 07:42 | disposition home or self-care (01) ==
LOC: HO.HMGCLDS 07:41
PROVIDERS: PCP Internal Medicine; Visit Provider Internal Medicine Cardiovascular Disease
DX: Z95.810 Presence of automatic (implantable) cardiac defibrillator (principal)
CPT/HCPCS: 36415; 80053; 80061; 83036; 83880; 85025

== ENCOUNTER 2022-10-02 11:22 | Outpatient (REF) | payer MEDICARE, SELFPAY ==
[2022-10-02 12:34] LABS: Estimated Average Glucose 105 mg/dL; Hemoglobin A1c % 5.3 %
[2022-10-02 12:41] LABS: Alanine Aminotransferase 21 U/L (0-40); Albumin Level 3.8 g/dL (3.5-5.0); Alkaline Phosphatase 66 U/L (39-117); Aspartate Amino Transferase 17 U/L (5-37); Bilirubin Direct 0.2 mg/dL (0.0-0.5); Bilirubin Total 0.5 mg/dL (0.0-1.0); Cholesterol 117 mg/dL; Glucose Fasting 103 mg/dL (60-99); HDL Cholesterol 39 mg/dL; LDL Cholesterol Calculated 53 mg/dl; Total Protein 5.9 g/dL (6.5-8.0); Triglycerides 127 mg/dL
[2022-10-02 14:35] LABS: Reflex LDLD? No
== END 2022-10-02 11:23 | disposition home or self-care (01) ==
LOC: HO.LNP 11:22
PROVIDERS: Visit Provider Internal Medicine
DX: R73.03 Prediabetes (principal); E78.00 Pure hypercholesterolemia, unspecified
CPT/HCPCS: 80061; 80076; 82947; 83036

== ENCOUNTER 2022-11-06 07:39 | Outpatient (REF) | payer MEDICARE, SELFPAY ==
[2022-11-06 11:12] LABS: MANUAL DIFF FLAG NO
[2022-11-06 11:20] LABS: Basophils Absolute Auto 0.1 X10*3/uL (0.0-0.2); Basophils Percent Auto 0.9 % (0-2); Eosinophils Absolute Auto 1.3 X10*3/uL (0.0-0.4); Eosinophils Percent Auto 15.2 % (0-4); Hematocrit 32.5 % (42.0-52.0); Imm Gran Abs Auto 0.04 X10*3/uL (0.00-0.03); Imm Gran Pct Auto 0.5 % (0.0-0.4); Lymphocytes Absolute Auto 1.8 X10*3/uL (1.2-4.9); Lymphocytes Percent Auto 21.3 % (20-40); Mean Corpuscular HGB Conc 27.7 g/dl (31.0-36.0); Mean Corpuscular Hemoglobin 20.3 pg (27.0-33.0); Mean Corpuscular Volume 73.4 fL (80.0-98.0); Mean Platelet Volume 11.9 fL (9.4-12.4); Monocytes Absolute Auto 0.5 X10*3/uL (0.1-1.2); Monocytes Percent Auto 6.4 % (2-11); Neutrophils Absolute Auto 4.7 x10*3/uL (2.0-8.3); Neutrophils Percent Auto 55.7 % (45-73); Platelet Count 377 X10*3/uL (160-400); Red Blood Count 4.43 X10*6/uL (4.60-5.80); Red Cell Distribution Width 16.2 % (11.0-16.0); White Blood Count 8.5 X10*3/uL (4.8-10.8)
== END 2022-11-06 07:40 | disposition home or self-care (01) ==
LOC: HO.HMGCLDS 07:39
PROVIDERS: PCP Internal Medicine; Visit Provider Internal Medicine
DX: D50.9 Iron deficiency anemia, unspecified (principal)
CPT/HCPCS: 36415; 85025

== ENCOUNTER 2023-01-08 06:56 | Outpatient (REF) | payer MEDICARE, SELFPAY ==
[2023-01-08 11:59] LABS: Blood Urea Nitrogen 22 mg/dL (9-16); Iron 385 mcg/dL (45-160); Percent Iron Saturation 92 % (15-50); Total Iron Binding Capacity 420 mcg/dL (228-428); Unsaturated Iron Binding 35 ug/dL
== END 2023-01-08 06:57 | disposition home or self-care (01) ==
LOC: HO.HMGCLDS 06:56
PROVIDERS: PCP Internal Medicine; Visit Provider Internal Medicine
DX: D72.10 Eosinophilia, unspecified (principal); D50.9 Iron deficiency anemia, unspecified
CPT/HCPCS: 36415; 83540; 84520

== ENCOUNTER 2023-04-03 11:23 | Outpatient (REF) | payer MEDICARE, SELFPAY ==
[2023-04-03 11:26] LABS: MANUAL DIFF FLAG NO
[2023-04-03 11:46] LABS: Basophils Absolute Auto 0.1 X10*3/uL (0.0-0.2); Eosinophils Absolute Auto 1.1 X10*3/uL (0.0-0.4); Eosinophils Percent Auto 13.8 % (0-4); Hematocrit 33.6 % (42.0-52.0); Hemoglobin 9.2 g/dl (14.0-18.0); Imm Gran Abs Auto 0.03 X10*3/uL (0.00-0.03); Imm Gran Pct Auto 0.4 % (0.0-0.4); Lymphocytes Absolute Auto 1.6 X10*3/uL (1.2-4.9); Mean Corpuscular HGB Conc 27.4 g/dl (31.0-36.0); Mean Corpuscular Hemoglobin 18.5 pg (27.0-33.0); Mean Corpuscular Volume 67.5 fL (80.0-98.0); Mean Platelet Volume 11.1 fL (9.4-12.4); Monocytes Absolute Auto 0.7 X10*3/uL (0.1-1.2); Neutrophils Absolute Auto 4.8 x10*3/uL (2.0-8.3); Neutrophils Percent Auto 57.8 % (45-73); Platelet Count 347 X10*3/uL (160-400); Red Blood Count 4.98 X10*6/uL (4.60-5.80); Red Cell Distribution Width 18.5 % (11.0-16.0); White Blood Count 8.3 X10*3/uL (4.8-10.8)
[2023-04-03 11:51] LABS: Appearance Urine Clear; Color Urine Yellow; Glucose Urine UA Negative (Negative); Leukocyte Esterase Urine Negative (Negative); Nitrite Urine Negative (Negative); Specific Gravity - Urine 1.015 (1.005-1.025); Urine Blood Negative (Negative); Urine Ketones Negative (Negative); Urine Protein Negative (Neg-Trace)
[2023-04-03 11:56] LABS: Bacteria Urine None Seen (None Seen); Hyaline Casts Urine 0-2 /LPF (0-2); RBC Urine 0-2 /HPF (0-2); Squamous Epithelial Cell Urine 0-2 /HPF (0-2); WBC Urine 0-5 /HPF (0-5)
[2023-04-03 12:11] LABS: Estimated Average Glucose 111 mg/dL; Hemoglobin A1c % 5.5 %
[2023-04-03 12:27] LABS: Alanine Aminotransferase 21 U/L (0-40); Albumin Level 3.7 g/dL (3.5-5.0); Alkaline Phosphatase 58 U/L (39-117); Anion Gap 11 (12-20); Aspartate Amino Transferase 19 U/L (5-37); Bilirubin Total 0.5 mg/dL (0.0-1.0); Blood Urea Nitrogen 21 mg/dL (9-16); Calcium 9.8 mg/dL (8.4-10.2); Carbon Dioxide 24 mmol/L (22-29); Chloride 109 mmol/L (96-108); Cholesterol 105 mg/dL; Estimated Glomerular Filt Rate > 60; Glucose Fasting 122 mg/dL (60-99); HDL Cholesterol 42 mg/dL; Iron 16 mcg/dL (45-160); LDL Cholesterol Calculated 51 mg/dl; Percent Iron Saturation 4 % (15-50); Potassium 4.5 mmol/L (3.3-5.1); Sodium 139 mmol/L (135-145); Total Iron Binding Capacity 393 mcg/dL (228-428); Total Protein 5.9 g/dL (6.5-8.0); Triglycerides 63 mg/dL; Unsaturated Iron Binding 377 ug/dL
[2023-04-03 12:35] LABS: Creatinine Urine 71.92 mg/dL; Microalbum/Creatinine Ratio Ur 13.9 ug/mg cr
[2023-04-03 12:36] LABS: PSA,Total (Free>4and<10) 3.28 ng/mL (0.00-4.00)
== END 2023-04-03 11:24 | disposition home or self-care (01) ==
LOC: HO.LNP 11:23
PROVIDERS: Visit Provider Internal Medicine
DX: Z00.00 Encounter for general adult medical examination without abnormal findings (principal); I10 Essential (primary) hypertension; E78.00 Pure hypercholesterolemia, unspecified; I50.21 Acute systolic (congestive) heart failure; D50.9 Iron deficiency anemia, unspecified; R73.09 Other abnormal glucose; Z12.5 Encounter for screening for malignant neoplasm of prostate
CPT/HCPCS: 80053; 80061; 81001; 82043; 83036; 83540; 84153; 85025

== ENCOUNTER 2023-06-12 09:10 | Day surgery (SDC) | payer MEDICARE, SELFPAY ==
[2023-06-10 10:08] VITALS: BMI 32.5
--- NOTE | 2023-06-11 09:32 | HO.ANESPROP2 ---
Documented by User: Kassi Prasad NP 06/11/23 09:37 HPI - Anesthesia Eval Consult details Narrative: 62yo M for Upper Endoscopy and Colonoscopy CAD with PCI 2016, Ischemic CMP EF 20-25% with ICD. Last cardiology eval 01/2023. Stable except baseline dizziness. Entresto decreased with 6 mo f/u. PMFSH Active Problems Active Problems: All Active Problems (Updated 08/25/22 @ 15:50 by REDD Henry) Rectal bleeding (Acute) Status post other internal cardiac defibrillator procedure (Acute) Ischemic cardiomyopathy (Acute) Past Medical History Medical History CAD (coronary artery disease) CHF (congestive heart failure) COVID-19 vaccine series completed Diverticulitis Elevated cholesterol GERD (gastroesophageal reflux disease) HTN (hypertension) Iron deficiency anemia Ischemic cardiomyopathy Myocardial infarction Pre-diabetes Family History Family History Father Lung cancer Family history of problems with anesthesia: No Surgical History Surgical History H/O colonoscopy History of cardiac defibrillator placement History of colostomy reversal History of esophagogastroduodenoscopy (EGD) History of incisional hernia repair History of laparotomy Hx of exploratory laparotomy Hx of heart artery stent History of Problems with Anesthesia: No Social History Social History Patient Tobacco Use Status: Former Tobacco user Quit Date: 5 yrs ago Tobacco use type: Cigarette Use of substances other than those prescribed or required for medical reasons: No Are you DNR?: No Advance Directives: No Advance Directives Information Provided: Yes service: No Current occupational status: unemployed Meds Allergies Allergy/AdvReac Type Severity Reaction Status Date / Time No Known Allergies Allergy Verified 08/20/22 12:13 Home Medications Medication Instructions Recorded Confirmed Last Taken Type aspirin 81 mg tablet,delayed 1 tab PO DAILY 05/15/22 06/10/23 05/16/22 History release atorvastatin 40 mg tablet 1 tab PO DAILY 05/15/22 06/10/23 Unknown History ferrous sulfate 325 mg (65 mg 325 mg PO DAILY 05/15/22 06/10/23 Unknown History iron) tablet (Iron (ferrous sulfate)) furosemide 40 mg tablet 1 tab PO BID 05/15/22 06/10/23 Unknown History metoprolol succinate 25 mg 1 tab PO BID 05/15/22 06/10/23 05/21/22 04:30 History tablet,extended release 24 hr spironolactone 25 mg tablet 1 tab PO DAILY 05/15/22 06/10/23 Unknown History clopidogrel 75 mg tablet 1 tab PO DAILY 05/21/22 06/10/23 05/16/22 History sacubitril 49 mg-valsartan 51 mg 1 tab PO BID 06/10/23 06/10/23 Unknown History tablet (Entresto) Exam Exam Date and Time: June 11, 2023 0932 Height,Weight and Vital Signs: Height 5 ft 8 in Weight 97.069 kg Pertinent Lab Results Pertinent Lab Results: Laboratory Tests 04/03/23 04/03/23 07:45 07:45 WBC 8.3 Hgb 9.2 L Hct 33.6 L Plt Count 347 Sodium 139 Potassium 4.5 Chloride 109 H Carbon Dioxide 24 BUN 21 H Creatinine 1.00 Narrative Narrative: 03/2023 ICD interr on chart ECHO 12/2022 1. LV mildly dilated 2. Borderline LVH 3. LV severely impaired with EF 20-25% 4. Grade 1 DD with impaired relaxation filling pattern 5 Akinesis of anterseptal wall and apex 6. Mild aortic regurg 7. No evidence of pulmo htn 8. No pericardial effusion 9. Aortic root dilation @ 4.1cm 10. No signif change from 06/2021 Assessment and Plan Assessment Anesthesia Assessment: Chart Reviewed Final Anesthetic Review Family History of Problems with Anesthesia: No History of Problems with Anesthesia: No Documented by User: Diana Springer MD 06/12/23 10:21 [facility] Past Medical History Medical History CAD (coronary artery disease) CHF (congestive heart failure) COVID-19 vaccine series completed Diverticulitis Elevated cholesterol GERD (gastroesophageal reflux disease) HTN (hypertension) Iron deficiency anemia Ischemic cardiomyopathy Myocardial infarction Pre-diabetes Family History Family History Father Lung cancer Surgical History Surgical History H/O colonoscopy History of cardiac defibrillator placement History of colostomy reversal History of esophagogastroduodenoscopy (EGD) History of incisional hernia repair History of laparotomy Hx of exploratory laparotomy Hx of heart artery stent Social History Social History Patient Tobacco Use Status: Former Tobacco user Quit Date: 5 yrs ago Tobacco use type: Cigarette Use of substances other than those prescribed or required for medical reasons: No Are you DNR?: No Advance Directives: No Advance Directives Information Provided: Yes service: No Current occupational status: unemployed Meds Allergies Allergy/AdvReac Type Severity Reaction Status Date / Time No Known Allergies Allergy Verified 08/20/22 12:13 Home Medications Medication Instructions Recorded Confirmed Last Taken Type aspirin 81 mg tablet,delayed 1 tab PO DAILY 05/15/22 06/10/23 05/16/22 History release atorvastatin 40 mg tablet 1 tab PO DAILY 05/15/22 06/10/23 Unknown History ferrous sulfate 325 mg (65 mg 325 mg PO DAILY 05/15/22 06/10/23 Unknown History iron) tablet (Iron (ferrous sulfate)) furosemide 40 mg tablet 1 tab PO BID 05/15/22 06/10/23 Unknown History metoprolol succinate 25 mg 1 tab PO BID 05/15/22 06/10/23 05/21/22 04:30 History tablet,extended release 24 hr spironolactone 25 mg tablet 1 tab PO DAILY 05/15/22 06/10/23 Unknown History clopidogrel 75 mg tablet 1 tab PO DAILY 05/21/22 06/10/23 05/16/22 History sacubitril 49 mg-valsartan 51 mg 1 tab PO BID 06/10/23 06/10/23 Unknown History tablet (Entresto) Exam Airway Mallampati Class: III TM Dist: <=3cm Neck ROM: Limited Heart: regular Lungs: cta Other: high risk due to cardiac issues, unclear upper endo indication. pt getting scoped for heme positive stool. loco discuss with surgeon Assessment and Plan Assessment Anesthesia Assessment: Anesthesia Plan Discussed Final Anesthetic Review NPO: No ASA Class: IV Final Preanesthetic Review: No Changes in Pt Med Stat, Meds/Allgs Chart Reviewed, Consent Obtained/Reviewed and Anes Risks/Benef Reviewed Patient Risk: High Procedure Risk: Intermediate Anesthetic Plan Anesthetic Plan: MAC: Disposition: Standard PACU (pt accepts very high cardiac risk for above procedures, will discuss with GI INDICATION TO PROCEED ON THIS ASA4 pt)
[2023-06-12 09:48] VITALS: BP 124/81; PULSE 82; RESP 16; TEMP 36.8; O2SAT 96
[2023-06-12] MEDS: Lactated Ringers 1,000 ML 50 ML IVCONT (10:16)
--- NOTE | 2023-06-12 10:42 | MHC.SHP ---
Pre-Procedural Eval Section A Date of Service: 06/12/23 Section B Chief Complaint: screening, rectal bleeding, Relevant Family History (Specify if Yes): No Relevant Social History: Tobacco Use (former smoker) Present Medications: see Short Stay Collaborative assessment Medical History: Significant History (Congestive heart failure Ischemic cardiomyopathy-history of NM Hypertension High cholesterol Anemia Pre diabetes Bilateral knee pain Guaiac-positive stool Hx diverticulitis) History of Previous Operations: Relevant previous surgery/procedure and date(s) (H/O colonoscopy History of cardiac defibrillator placement History of colostomy reversal History of esophagogastroduodenoscopy (EGD) History of incisional hernia repair History of laparotomy Hx of exploratory laparotomy Hx of heart artery stent) Allergies: Allergies Allergy/AdvReac Type Severity Reaction Status Date / Time No Known Allergies Allergy Verified 08/20/22 12:13 Review of Systems Sugical H&P ROS: Negative: Constitution, Cardiovascular, Respiratory and Gastrointestinal Exam Surgical H&P Exam: Normal: Heart, Normal: Lungs and Normal: Extremities and Significant Findings: Abdomen (large ventral hernia) Plan Diagnosis/Plan: Change (Pt is at high risk for anesthesia due to ischemic cardiomyopathy, proceed with colonoscopy and EGD cancelled) I have reviewed the history and physical and performed a pertinent physical examination on my patient. No changes have occurred unless specified. Time Spent With Patient Time: Total time managing care of this patient today ____ minutes.
--- NOTE | 2023-06-12 10:59 | W.PM.OPN ---
Operative Note Operative Note Date of Service: 06/12/23 Narrative: COLONOSCOPY TILL CECUM WITH BIOPSIES Pre-op diagnosis: Rectal bleeding, Heme Positive stools, LALY Pt scheduled for an EGD and colon. Evaluated by anesthesia and deemed very high risk for EGD due to ischemic cardiomyopathy with EF of 20%. After discussing with anesthesia and the patient, decision was made to proceed with colonoscopy and cancel EGD. Post-op diagnosis:?Colon polyp, diverticulosis, hemorrhoid Endoscopist:? Marino Khan MD Anesthesia:?MAC Consent: Indications for the procedure and potential complications of bleeding, perforation, reaction to medications and missed diagnosis were discussed with the patient and informed consent was obtained. Instrument: Olympus PCF H 190 L variable stiffness pediatric colonoscope Monitoring: Vital signs and clinical assessment, intermittent blood pressure monitoring, continuous EKG monitoring, Pulse oximetry and Carbon Dioxide monitoring were done throughout the procedure. Please see anesthesia flowsheet. Colon withdrawl time was 22 minutes. Procedure: The patient was placed in the left lateral decubitis position and pre-procedure medications were administered. After a digital rectal examination of the ano-rectum, the video colonoscope was inserted into the rectum and advanced through the colon to the cecum. The colonoscope was slowly withdrawn in a retrograde panoramic fashion and the colon mucosa was carefully examined including a retroflexed view of the rectum. Findings and interventions are described below. Procedure Difficulty: Without difficulty Findings: Terminal Ileum: Distal 5-6 cms examined and a few 1-2 mm aphthoid ulcers noted with normal intervening mucosa. Biopsies were obtained from the ulcers Cecum: Normal Ascending Colon: Normal Transverse Colon: Normal Descending Colon: Moderate diverticulosis Sigmoid Colon: A 3-4 mm diminutive appearing polyp - removed with a cold biopsy. Moderate diverticulosis Rectum: Normal Ano-rectum: Moderate to large internal hemorrhoids Colon preparation: Good after some irrigation Impression and Post Procedure Diagnosis: Colonoscopy Findings: A few 1-2 mm aphthoid ulcers noted with normal intervening mucosa in the TI (likely due to aspirin or NSAID). Biopsies were obtained from the ulcers One diminutive appearing polyp removed Random biopsies were obtained from the right and left colon to check for microscopic colitis. Moderate diverticulosis seen in the left colon Moderate to large hemorrhoids on retroflexed exam - likely source of rectal bleeding. No clear source found for LALY - ? due to rectal bleeding versus UGI source Plan: Await pathology results Patient has an appointment on 06/26/23 in the GI Clinic with Gale Hutson NP. Repeat Colonoscopy interval based on path results - in 5 years if polyps are adenomatous and 10 years if polyps are hyperplastic. Above findings were reviewed with the patient and colon polyps and diverticulosis handouts were given in the discharge area Hydrocortisone cream for hemorrhoids. Consider scheduling a Capsule endoscopy for evaluation of LALY since pt is very high risk for EGD. If pt needs an EGD based on findings on Capsule study - would need to be scheduled in the OR with GA
[2023-06-12 11:58] VITALS: BP 114/56; PULSE 69; RESP 16; TEMP 36.3; O2SAT 100
[2023-06-12 12:13] VITALS: BP 99/59; PULSE 73; RESP 16; O2SAT 100
[2023-06-12 12:28] VITALS: BP 106/64; PULSE 74; RESP 18; TEMP 36.6; O2SAT 98
== END 2023-06-12 13:17 | disposition home or self-care (01) ==
PROVIDERS: PCP Internal Medicine; Visit Provider Internal Medicine Gastroenterology
PROC: (CPT 45380; principal; 2023-06-12 10:30)
DX: K63.5 Polyp of colon (principal); K57.30 Diverticulosis of large intestine without perforation or abscess without bleeding; K64.8 Other hemorrhoids; K12.0 Recurrent oral aphthae; K52.9 Noninfective gastroenteritis and colitis, unspecified; K21.9 Gastro-esophageal reflux disease without esophagitis; K43.9 Ventral hernia without obstruction or gangrene; K62.5 Hemorrhage of anus and rectum; I11.0 Hypertensive heart disease with heart failure; I50.9 Heart failure, unspecified; R73.03 Prediabetes; E78.5 Hyperlipidemia, unspecified; D64.9 Anemia, unspecified; I25.2 Old myocardial infarction; E66.9 Obesity, unspecified; Z68.32 Body mass index [BMI] 32.0-32.9, adult; Z90.49 Acquired absence of other specified parts of digestive tract; Z95.810 Presence of automatic (implantable) cardiac defibrillator
CPT/HCPCS: 45380; 88305

== ENCOUNTER → 2023-06-12 09:10 | Outpatient (BNV) | payer MEDICARE, SELFPAY | PROVIDERS: PCP Internal Medicine; Visit Provider Internal Medicine Gastroenterology | DX: K62.5 Hemorrhage of anus and rectum (principal); R19.5 Other fecal abnormalities; D12.5 Benign neoplasm of sigmoid colon; D13.30 Benign neoplasm of unspecified part of small intestine; K57.30 Diverticulosis of large intestine without perforation or abscess without bleeding; K64.8 Other hemorrhoids | CPT/HCPCS: 45380 ==

== ENCOUNTER 2023-06-24 07:56 | Outpatient (AMB) | payer MEDICARE, SELFPAY ==
--- NOTE | 2023-06-24 08:03 | MHC.OFFVIS ---
Intake Vital Signs 06/24/23 08:06 Height 5 ft 8 in Weight 214 lb BMI 32.5 BP 95/50 L Blood Pressure Location Lt brachial Position Sitting Pulse 69 Intake Visit Reasons: S/p egd/colon-Bill Intake Note: Patient follow up fro Colonoscopy/EGD results. Patient cc: acid reflex on and off. Denies any other GI issues. Speech Therapy Director Required: No Accompanied by: Self / Same As Patient Allergies No Known Allergies Allergy (Verified 06/24/23 08:03) HPI S/p egd/colon-Bill HPI Details Assessment & Plan (1) Rectal bleeding: ?Code(s): K62.5 - Hemorrhage of anus and rectum ?Plan: He says that the bleeding was found on a heme stool test. He has a hx of partial bowel resection r/t TICs. He has intermittent RB on the TT which he attributes to roids. He also has some dark stools - but he is taking iron. He has occasional dyspepsia with taking all those meds but nothing else. 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 [employer] Tess Vilchis. [place] [address] [place] [address] He has cardiomyopathy and a AICD in place, he denies any respiratory problems. NO ID problems. There is no known family history of colon cancer or polyps.? COLONOSCOPY 06/12/23 Findings: Terminal Ileum: Distal 5-6 cms examined and a few 1-2 mm aphthoid ulcers noted with normal? intervening mucosa. ? Biopsies were obtained from the ulcers Cecum:? Normal Ascending Colon:? Normal Transverse Colon:? Normal Descending Colon:? Moderate diverticulosis Sigmoid Colon:? A 3-4 mm? diminutive appearing polyp -? removed with a cold biopsy. Moderate diverticulosis Rectum:? Normal Ano-rectum:? Moderate to large internal hemorrhoids Colon preparation:? Good after some irrigation Impression and Post Procedure Diagnosis: Colonoscopy Findings: A few 1-2 mm aphthoid ulcers noted with normal? intervening mucosa in the TI (likely due to aspirin or NSAID). ? Biopsies were obtained from the ulcers One diminutive appearing polyp removed ?Random biopsies were obtained from the right and left colon to check for microscopic colitis. Moderate diverticulosis seen in the left colon Moderate to large hemorrhoids on retroflexed exam -? likely source of rectal bleeding. No clear source found for LALY - ? due to rectal bleeding versus UGI source Plan: Await pathology results Patient has an appointment on 06/26/23 in the GI Clinic with? Gale Hutson NP. Repeat Colonoscopy interval based on path results - in 5 years if polyps are adenomatous and 10 years if polyps are hyperplastic. Above findings were reviewed with the patient and colon polyps and diverticulosis handouts were given in the discharge area Hydrocortisone cream for hemorrhoids. Consider scheduling a Capsule endoscopy for evaluation of LALY since pt is very high risk for EGD. If pt needs an EGD based on findings on Capsule study - would need to be scheduled in the OR with [facility] Received: 06/12/23 Diagnosis A.? Terminal ileum, biopsy:? Mildly active ileitis (see comment). B.? Colon, right, biopsy:? Colonic mucosa within normal limits; negative for active, chronic or microscopic colitis. C.? Colon, sigmoid polyp, biopsy:? Clinically polypoid colonic mucosa noted; negative for a hyperplastic or neoplastic process. D.? Colon, left, biopsy:? Colonic mucosa within normal limits; negative for active, chronic or microscopic colitis. COMMENT (A):? Neither chronic mucosal injury nor granulomas are seen. The differential diagnosis includes infection, drug/medication effect or early idiopathic inflammatory bowel disease. TODAY'S VISIT The procedure needs to be repeated in 10 years. The procedure was well tolerated. The results were explained and the patient is agreeable to the follow-up interval as stated. The bowel pattern has returned to normal. Education was provided to tell any 1st degree relatives about their findings to be sure that they are screened by age 45. Educated that they will be put on a recall list when it is time for their repeat scope but should they move out of state or away from the hospital they will need to remember along with their primary to repeat the procedure in a timely fashion to avoid any adverse complications. He did not tolerate the prep well, really disliked not eating all day and was concerned that he is supposed to be on a fluid restriction as a cardiac patient. We discuss that we need to treat the hemorrhoids, then will retest with FIT to see if the heme + ceases. If not will consider capsule endoscopy, but this requires prep and he is not wild about this (Dr. Arreola felt that he is high risk for EGD). Instructed how to use hemorrhoid cream for 2 weeks then ROV 4 weeks. He says he has had roids all his life. Only intermittent diarrhea r/t when they started all my cardiac medications 6 years ago. No other sx of IBD so ulcers likely asa and/or iron therapy - instructed him to take these with food. ROV 4 weeks. [facility] Medical History CAD (coronary artery disease) CHF (congestive heart failure) COVID-19 vaccine series completed Diverticulitis Elevated cholesterol GERD (gastroesophageal reflux disease) HTN (hypertension) Iron deficiency anemia Ischemic cardiomyopathy Myocardial infarction Pre-diabetes Surgical History H/O colonoscopy History of cardiac defibrillator placement History of colostomy reversal History of esophagogastroduodenoscopy (EGD) History of incisional hernia repair History of laparotomy Hx of exploratory laparotomy Hx of heart artery stent Family History Father Lung cancer Social History Patient Tobacco Use Status: Former Tobacco user Quit Date: 5 yrs ago Tobacco use type: Cigarette service: No Current occupational status: unemployed Review of Systems Const Denies fatigue, Denies fever(s), Denies night sweats, Denies poor appetite and Denies weight loss ENT Reports Normal hearing present, Denies dental pain, Denies dysphagia, Denies hearing loss, Denies mouth pain, Denies odynophagia, Denies throat swelling, Denies tongue swelling and Reports other (Dentition adequate) Card Reports no additional complaints Resp Reports no additional complaints GI Denies abdominal pain, Denies melena, Denies bloating, Reports hematochezia, Denies constipation, Denies GI cramping, Denies dysphagia, Denies excessive flatus, Denies early satiety, Denies heartburn, Denies diarrhea, Denies nausea, Denies odynophagia, Denies vomiting and Denies hematemesis Skin/Breast Denies pruritus, Denies lesions, Denies rash and Denies jaundice Neuro Reports Normal hearing present and Denies Abnormal speech present Endo Denies fatigue Aller/Immun Denies throat swelling and Denies tongue swelling Physical Exam Vital Signs: Last Vital Signs Pulse 69 06/24/23 08:06 BP 95/50 L 06/24/23 08:06 BMI result Body Mass Index 32.5 Const General: cooperative, no acute distress, well developed and well groomed Nutritional Appearance: well nourished and obese Orientation/consciousness: oriented to person, oriented to place and oriented to time Limitations: No language barrier HEENT Head: Yes normocephalic and Yes atraumatic Eyes General: appearance normal, both eyes and all related structures Pupils: Equal, round and reactive pupils present Neck Neck: Yes normal visual inspection and Yes no lymphadenopathy Thyroid: Thyroid normal Resp Effort & Inspection: normal respiratory effort and able to speak in complete sentences Auscultation: clear to auscultation bilaterally Cardio Rate: regular rate Rhythm: regular rhythm Heart sounds: Normal, physiologic split S2 sound present Peripheral pulses: radial pulses present and posterior tibial pulses present GI Inspection: No distended, No Abdominal panniculus present and Yes obesity Palpation (GI): Soft to palpation, nontender, no guarding, not rigid and No hepatosplenomegaly present Percussion: Yes normal to percussion Auscultation: normal bowel sounds Rectal Exam - Male: Yes deferred Skin General skin exam: no rashes or lesions noted, turgor normal, skin not dry, no jaundice, No spider nevi and no striae Rashes: no rashes Nails: normal Neuro General: oriented to person, oriented to place and oriented to time Cranial nerves: Yes Equal, round and reactive pupils present and Yes Normal hearing present Speech: No Abnormal speech present Extrem General: Yes normal to inspection, No clubbing, No cyanosis and No edema Psych Appearance: grossly normal and well kempt Mental Status: mental status grossly normal Speech and movement: Normal speech and movement present Affect: normal affect Attitude: cooperative Thought process: Normal thought process present and not confabulating Thought content: Normal thought content present Insight: Limited insight present (Psych) Judgement: Limited judgement present (Psych) Results Reviewed Results Reviewed: COLONOSCOPY 06/12/23 Findings: Terminal Ileum: Distal 5-6 cms examined and a few 1-2 mm aphthoid ulcers noted with normal? intervening mucosa. ? Biopsies were obtained from the ulcers Cecum:? Normal Ascending Colon:? Normal Transverse Colon:? Normal Descending Colon:? Moderate diverticulosis Sigmoid Colon:? A 3-4 mm? diminutive appearing polyp -? removed with a cold biopsy. Moderate diverticulosis Rectum:? Normal Ano-rectum:? Moderate to large internal hemorrhoids Colon preparation:? Good after some irrigation Impression and Post Procedure Diagnosis: Colonoscopy Findings: A few 1-2 mm aphthoid ulcers noted with normal? intervening mucosa in the TI (likely due to aspirin or NSAID). ? Biopsies were obtained from the ulcers One diminutive appearing polyp removed ?Random biopsies were obtained from the right and left colon to check for microscopic colitis. Moderate diverticulosis seen in the left colon Moderate to large hemorrhoids on retroflexed exam -? likely source of rectal bleeding. No clear source found for LALY - ? due to rectal bleeding versus UGI source Plan: Await pathology results Patient has an appointment on 06/26/23 in the GI Clinic with? Gale Hutson NP. Repeat Colonoscopy interval based on path results - in 5 years if polyps are adenomatous and 10 years if polyps are hyperplastic. Above findings were reviewed with the patient and colon polyps and diverticulosis handouts were given in the discharge area Hydrocortisone cream for hemorrhoids. Consider scheduling a Capsule endoscopy for evaluation of LALY since pt is very high risk for EGD. If pt needs an EGD based on findings on Capsule study - would need to be scheduled in the OR with [facility] Received: 06/12/23 Diagnosis A.? Terminal ileum, biopsy:? Mildly active ileitis (see comment). B.? Colon, right, biopsy:? Colonic mucosa within normal limits; negative for active, chronic or microscopic colitis. C.? Colon, sigmoid polyp, biopsy:? Clinically polypoid colonic mucosa noted; negative for a hyperplastic or neoplastic process. D.? Colon, left, biopsy:? Colonic mucosa within normal limits; negative for active, chronic or microscopic colitis. COMMENT (A):? Neither chronic mucosal injury nor granulomas are seen. The differential diagnosis includes infection, drug/medication effect or early idiopathic inflammatory bowel disease. Assessment & Plan Assessment & Plan (1) Hemorrhoids, internal, with bleeding: Code(s): K64.8 - Other hemorrhoids Plan: The procedure needs to be repeated in 10 years. The procedure was well tolerated. The results were explained and the patient is agreeable to the follow-up interval as stated. The bowel pattern has returned to normal. Education was provided to tell any 1st degree relatives about their findings to be sure that they are screened by age 45. Educated that they will be put on a recall list when it is time for their repeat scope but should they move out of state or away from the hospital they will need to remember along with their primary to repeat the procedure in a timely fashion to avoid any adverse complications. He did not tolerate the prep well, really disliked not eating all day and was concerned that he is supposed to be on a fluid restriction as a cardiac patient. We discuss that we need to treat the hemorrhoids, then will retest with FIT to see if the heme + ceases. If not will consider capsule endoscopy, but this requires prep and he is not wild about this (Dr. Arreola felt that he is high risk for EGD). Instructed how to use hemorrhoid cream for 2 weeks then ROV 4 weeks. He says he has had roids all his life. Only intermittent diarrhea r/t when they started all my cardiac medications 6 years ago. No other sx of IBD so ulcers likely asa and/or iron therapy - instructed him to take these with food. ROV 4 weeks. (2) Rectal bleeding: Code(s): K62.5 - Hemorrhage of anus and rectum Medications: New hydrocortisone 2.5% (Proctosol HC) BE SURE TO INCLUDE RECTAL APPICATOR!! 1 appl [place] BID 30 grams 6RF hemorrhoids K64.9 - Unspecified hemorrhoids Discontinued hydrocortisone 2.5% Discontinued Reason: Doctor's Order 1 appl OH Q12H 20 days PRN 30 grams 1RF hemorrhoids K64.8 - Other hemorrhoids Coding Level of Care Code Est Pt Level 4 (99914) Diagnoses Hemorrhoids, internal, with bleeding K64.8 Rectal bleeding K62.5
[2023-06-24 08:06] VITALS: BP 95/50; PULSE 69; BMI 32.5
== END 2023-06-24 08:26 | disposition home or self-care (01) ==
PROVIDERS: PCP Internal Medicine; Visit Provider Nurse Practitioner
DX: K64.8 Other hemorrhoids (principal); K62.5 Hemorrhage of anus and rectum
CPT/HCPCS: 99214

== ENCOUNTER → 2023-06-24 07:56 | Outpatient (BNVA) | payer MEDICARE, SELFPAY | PROVIDERS: PCP Internal Medicine; Visit Provider Nurse Practitioner | DX: K57.30 Diverticulosis of large intestine without perforation or abscess without bleeding (principal); K64.8 Other hemorrhoids; Z98.890 Other specified postprocedural states | CPT/HCPCS: 99212 ==

== ENCOUNTER 2023-07-24 08:00 | Outpatient (REF) | payer MEDICARE, SELFPAY ==
[2023-07-24 09:16] LABS: MANUAL DIFF FLAG NO
[2023-07-24 10:04] LABS: Basophils Absolute Auto 0.1 X10*3/uL (0.0-0.2); Basophils Percent Auto 1.1 % (0-2); Eosinophils Absolute Auto 1.6 X10*3/uL (0.0-0.4); Eosinophils Percent Auto 19.3 % (0-4); Hematocrit 40.2 % (42.0-52.0); Hemoglobin 11.6 g/dl (14.0-18.0); Imm Gran Abs Auto 0.01 X10*3/uL (0.00-0.03); Imm Gran Pct Auto 0.1 % (0.0-0.4); Lymphocytes Absolute Auto 1.4 X10*3/uL (1.2-4.9); Lymphocytes Percent Auto 17.4 % (20-40); Mean Corpuscular HGB Conc 28.9 g/dl (31.0-36.0); Mean Corpuscular Hemoglobin 20.9 pg (27.0-33.0); Mean Corpuscular Volume 72.3 fL (80.0-98.0); Monocytes Absolute Auto 0.7 X10*3/uL (0.1-1.2); Monocytes Percent Auto 8.2 % (2-11); Neutrophils Absolute Auto 4.3 x10*3/uL (2.0-8.3); Neutrophils Percent Auto 53.9 % (45-73); Platelet Count 256 X10*3/uL (160-400); Red Blood Count 5.56 X10*6/uL (4.60-5.80); Red Cell Distribution Width 19.8 % (11.0-16.0)
[2023-07-24 10:47] LABS: Ferritin 11 ng/mL (20-250)
== END 2023-07-24 08:01 | disposition home or self-care (01) ==
LOC: HO.LAB 08:00
PROVIDERS: PCP Internal Medicine; Visit Provider Nurse Practitioner
DX: D50.9 Iron deficiency anemia, unspecified (principal); K64.8 Other hemorrhoids
CPT/HCPCS: 36415; 82728; 85025; 99212

== ENCOUNTER 2023-07-24 08:00 | Outpatient (AMB) | payer MEDICARE, SELFPAY ==
--- NOTE | 2023-07-24 08:21 | A.OFFVIS_ITS ---
Intake Vital Signs 07/24/23 08:31 Height 5 ft 8 in Weight 215 lb BMI 32.7 BP 84/60 L Blood Pressure Location Lt brachial Position Sitting Pulse 71 Intake Visit Reasons: 4 week follow up Intake Note: Patient follow up for hemorrhoids. Patient denies any GI issues. Director Of Casework Required: No Accompanied by: Self / Same As Patient Allergies No Known Allergies Allergy (Verified 07/24/23 08:29) HPI 4 week follow up HPI Details Assessment & Plan (1) Hemorrhoids, internal, with bleeding : Code(s): K64.8 - Other hemorrhoids Plan: The procedure needs to be repeated in 10 years. The procedure was well tolerated. The results were explained and the patient is agreeable to the follow-up interval as stated. The bowel pattern has returned to normal. Education was provided to tell any 1st degree relatives about their findings to be sure that they are screened by age 45. Educated that they will be put on a recall list when it is time for their repeat scope but should they move out of state or away from the hospital they will need to remember along with their primary to repeat the procedure in a timely fashion to avoid any adverse complications. He did not tolerate the prep well, really disliked not eating all day and was concerned that he is supposed to be on a fluid restriction as a cardiac patient. We discuss that we need to treat the hemorrhoids, then will retest with FIT to see if the heme + ceases. If not will consider capsule endoscopy, but this requires prep and he is not wild about this (Dr. Arreola felt that he is high risk for EGD). Instructed how to use hemorrhoid cream for 2 weeks then ROV 4 weeks. He says he has had roids all his life. Only intermittent diarrhea r/t when they started all my cardiac medications 6 years ago. No other sx of IBD so ulcers likely asa and/or iron therapy - instructed him to take these with food. ROV 4 weeks. (2) Rectal bleeding: Code(s): K62.5 - Hemorrhage of anus and rectum Medications: New hydrocortisone 2.5 % (Proctosol HC) BE SURE TO INCLU DE RECTAL APPICATO R!! 1 appl PA BID 30 g alison 6RF hemorrhoi ds K64.9 - Unspecifie d hemorrhoids Discontinued hydrocortisone 2.5 % Discontinued Reason: Doctor's Order 1 appl PA Q12H 20 days PRN 30 grams 1RF hemorrhoids K64.8 - Other hemo rrhoids TODAY'S VISIT He says that the rectal bleeding has resolved with the use of the hemorrhoid cream and also helped is itching. At this point will repeat the fit cards and also a CBC since he has been taking oral iron replacement therapy to see if he is holding his hemoglobin/hematocrit and to try to rule out any further investigation in terms of GI losses. Return office visit in 6 weeks. Again, Dr. Khan feels he would be a high risk for an EGD. [facility] Medical History (Updated 07/24/23 @ 08:51 by REDD Henry) COVID-19 vaccine series completed Iron deficiency anemia Pre-diabetes Elevated cholesterol HTN (hypertension) CHF (congestive heart failure) Myocardial infarction CAD (coronary artery disease) Ischemic cardiomyopathy Diverticulitis GERD (gastroesophageal reflux disease) Surgical History History of cardiac defibrillator placement Hx of heart artery stent Hx of exploratory laparotomy History of colostomy reversal History of incisional hernia repair History of laparotomy History of esophagogastroduodenoscopy (EGD) H/O colonoscopy Family History Father Lung cancer Social History Patient Tobacco Use Status: Former Tobacco user Quit Date: 5 yrs ago Tobacco use type: Cigarette service: No Current occupational status: unemployed Review of Systems Const Denies fatigue, Denies fever(s), Denies night sweats, Denies poor appetite and Denies weight loss Eyes Details: glasses Reports requires corrective lenses ENT Reports Normal hearing present, Denies dental pain, Denies dysphagia, Denies hearing loss, Denies mouth pain, Denies odynophagia, Denies throat swelling, Denies tongue swelling and Reports other (Dentition adequate) Card Reports no additional complaints Resp Reports no additional complaints GI Denies abdominal pain, Denies melena, Denies bloating, Denies hematochezia, Denies constipation, Denies GI cramping, Denies dysphagia, Denies excessive flatus, Denies early satiety, Denies heartburn, Denies diarrhea, Denies nausea, Denies odynophagia, Denies vomiting and Denies hematemesis Skin/Breast Denies pruritus, Denies lesions, Denies rash and Denies jaundice Neuro Reports Normal hearing present and Denies Abnormal speech present Endo Denies fatigue Aller/Immun Denies throat swelling and Denies tongue swelling Physical Exam Vital Signs: Last Vital Signs Pulse 71 07/24/23 08:31 BP 84/60 L 07/24/23 08:31 BMI result Body Mass Index 32.7 Const General: cooperative, no acute distress, well developed and well groomed Nutritional Appearance: well nourished and obese centrally obese Orientation/consciousness: oriented to person, oriented to place and oriented to time Limitations: No language barrier, ambulation with cane, ambulation with walker and wheelchair HEENT Head: Yes normocephalic and Yes atraumatic Eyes General: appearance normal, both eyes and all related structures Pupils: Equal, round and reactive pupils present Neck Neck: Yes normal visual inspection and Yes no lymphadenopathy Thyroid: Thyroid normal Resp Effort & Inspection: normal respiratory effort and able to speak in complete sentences Auscultation: clear to auscultation bilaterally Cardio Rate: regular rate Rhythm: regular rhythm Heart sounds: Normal, physiologic split S2 sound present Peripheral pulses: radial pulses present and posterior tibial pulses present GI Inspection: No distended and No Abdominal panniculus present Palpation (GI): Soft to palpation, nontender, no guarding, not rigid, No hepatosplenomegaly present and Hepatosplenomegaly present Percussion: Yes normal to percussion Auscultation: normal bowel sounds Rectal Exam - Male: Yes deferred Skin General skin exam: no rashes or lesions noted, turgor normal, skin not dry, no jaundice, No spider nevi and no striae Rashes: no rashes Nails: normal Neuro General: oriented to person, oriented to place and oriented to time Cranial nerves: Yes Equal, round and reactive pupils present and Yes Normal hearing present Speech: No Abnormal speech present Extrem General: Yes normal to inspection, No clubbing, No cyanosis and No edema Psych Appearance: grossly normal and well kempt Mental Status: mental status grossly normal Speech and movement: Normal speech and movement present Affect: normal affect Attitude: cooperative Thought process: Normal thought process present and not confabulating Thought content: Normal thought content present Insight: Fair insight present (Psych) Judgement: Fair judgement present (Psych) Assessment & Plan Assessment & Plan (1) Hemorrhoids, internal, with bleeding: Code(s): K64.8 - Other hemorrhoids Plan: He says that the rectal bleeding has resolved with the use of the hemorrhoid cream and also helped is itching. At this point will repeat the fit cards and also a CBC since he has been taking oral iron replacement therapy to see if he is holding his hemoglobin/hematocrit and to try to rule out any further investigation in terms of GI losses. Return office visit in 6 weeks. Again, Dr. Khan feels he would be a high risk for an EGD. (2) Rectal bleeding: Code(s): K62.5 - Hemorrhage of anus and rectum (3) Iron deficiency anemia: Code(s): D50.9 - Iron deficiency anemia, unspecified Orders: Orders Complete Blood Count Auto Diff Today D50.9 - Iron deficiency anemia, unspecified FITS Today K62.5 - Hemorrhage of anus and rectum Ferritin Today D50.9 - Iron deficiency anemia, unspecified Coding Level of Care Code Est Pt Level 3 (17539) Diagnoses Hemorrhoids, internal, with bleeding K64.8 Rectal bleeding K62.5 Iron deficiency anemia D50.9
[2023-07-24 08:31] VITALS: BP 84/60; PULSE 71; BMI 32.7
== END 2023-07-24 08:53 | disposition home or self-care (01) ==
PROVIDERS: PCP Internal Medicine; Visit Provider Nurse Practitioner
DX: K64.8 Other hemorrhoids (principal); K62.5 Hemorrhage of anus and rectum; D50.9 Iron deficiency anemia, unspecified
CPT/HCPCS: 99213

== ENCOUNTER 2023-07-27 | Outpatient (REF) | payer MEDICARE, SELFPAY | END 2023-07-27 00:01 | disposition home or self-care (01) | LOC: HO.LNP | PROVIDERS: Visit Provider Nurse Practitioner | DX: K62.5 Hemorrhage of anus and rectum (principal) | CPT/HCPCS: 82274 ==

== ENCOUNTER 2023-07-29 | Outpatient (REF) | payer MEDICARE, SELFPAY ==
[2023-08-06 13:11] LABS: FIT Int Ctl YES; FIT2 NEGATIVE (NEGATIVE)
== END 2023-07-29 00:01 | disposition home or self-care (01) ==
LOC: HO.LNP
PROVIDERS: Visit Provider Nurse Practitioner
DX: K62.5 Hemorrhage of anus and rectum (principal)
CPT/HCPCS: 82274

== ENCOUNTER 2023-09-04 07:54 | Outpatient (AMB) | payer MEDICARE, SELFPAY ==
--- NOTE | 2023-09-04 07:58 | MHC.OFFVIS ---
Intake Vital Signs 09/04/23 08:00 Height 5 ft 7 in Weight 219 lb BMI 34.3 BP 76/46 L Blood Pressure Location Lt brachial Position Sitting Pulse 79 Intake Visit Reasons: 6 week follow up Intake Note: Patient follow up for lab / stool results. Patient denies any GI issues. 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 At this point will repeat the fit cards and also a CBC since he has been taking oral iron replacement therapy to see if he is holding his hemoglobin/hematocrit and to try to rule out any further investigation in terms of GI losses. Return office visit in 6 weeks. Again, Dr. Khan feels he would be a high risk for an EGD. (2) Rectal bleeding: Code(s): K62.5 - Hemorrhage of anus and rectum (3) Iron deficiency anemia: Code(s): D50.9 - Iron deficiency anemia, unspecified Orders: Orders Complete Blood Cou nt Auto Diff Today D50.9 - Iron defic iency anemia, unsp ecified FITS Today K62.5 - Hemorrhage of anus and rectu m Ferritin Today D50.9 - Iron defic iency anemia, unsp ecified LABS: Laboratory Tests 07/24/23 07/24/23 07/29/23 09:14 09:14 Unknown WBC 8.0 Hgb 11.6 L D Hct 40.2 L MCV 72.3 L MCH 20.9 L Ferritin 11 L FIT Diagnostic NEGATIVE TODAY'S VISIT Will increase the ferritin to bid and rov in 8 weeks to recheck CBC. He says he still has intermittent hemorrhoidal bleeding but ?I had this all my life I had hemorrhoid since the [employer] administration. ? I tell him that when he has severe bleed he should use the cream again as he was unaware he had refills and says that the tube had completed. I asked if he has ever consider hemorrhoid surgery and is just not something he is willing to consider at this time and he has legitimate concerns given his cardiac status. . He continues on oral iron supplementation but given that his ferritin is still low I think he should go twice a day for at least the next 6-8 weeks. He is agreeable to this. Return office visit in 8 weeks [facility] Medical History (Updated 07/24/23 @ 08:51 by REDD Henry) COVID-19 vaccine series completed Iron deficiency anemia Pre-diabetes Elevated cholesterol HTN (hypertension) CHF (congestive heart failure) Myocardial infarction CAD (coronary artery disease) Ischemic cardiomyopathy Diverticulitis GERD (gastroesophageal reflux disease) Surgical History History of cardiac defibrillator placement Hx of heart artery stent Hx of exploratory laparotomy History of colostomy reversal History of incisional hernia repair History of laparotomy History of esophagogastroduodenoscopy (EGD) H/O colonoscopy Family History Father Lung cancer Social History Patient Tobacco Use Status: Former Tobacco user Quit Date: 5 yrs ago Tobacco use type: Cigarette service: No Current occupational status: unemployed Review of Systems Const Denies fatigue, Denies fever(s), Denies night sweats, Denies poor appetite and Denies weight loss Eyes Details: glasses Reports requires corrective lenses ENT Reports Normal hearing present, Denies dental pain, Denies dysphagia, Denies hearing loss, Denies mouth pain, Denies odynophagia, Denies throat swelling, Denies tongue swelling and Reports other (Dentition adequate) Card Reports no additional complaints Resp Reports no additional complaints GI Denies abdominal pain, Denies melena, Denies bloating, Reports hematochezia, Denies constipation, Denies GI cramping, Denies dysphagia, Denies excessive flatus, Denies early satiety, Denies heartburn, Denies diarrhea, Denies nausea, Denies odynophagia, Denies vomiting and Denies hematemesis Skin/Breast Denies pruritus, Denies lesions, Denies rash and Denies jaundice Neuro Reports Normal hearing present and Denies Abnormal speech present Endo Denies fatigue Aller/Immun Denies throat swelling and Denies tongue swelling Physical Exam Vital Signs: Last Vital Signs Pulse 79 09/04/23 08:00 BP 76/46 L 09/04/23 08:00 BMI result Body Mass Index 34.3 Const General: cooperative, no acute distress, well developed and well groomed Nutritional Appearance: well nourished and obese Orientation/consciousness: oriented to person, oriented to place and oriented to time Limitations: No language barrier HEENT Head: Yes normocephalic and Yes atraumatic Eyes General: appearance normal, both eyes and all related structures Pupils: Equal, round and reactive pupils present Neck Neck: Yes normal visual inspection and Yes no lymphadenopathy Thyroid: Thyroid normal Resp Effort & Inspection: normal respiratory effort and able to speak in complete sentences Auscultation: clear to auscultation bilaterally Cardio Rate: regular rate Rhythm: regular rhythm Heart sounds: Normal, physiologic split S2 sound present Peripheral pulses: radial pulses present and posterior tibial pulses present GI Other: . Abdomen is and a even with a large bulge on the left side, this is his baseline Inspection: No distended, Yes Abdominal panniculus present and Yes obesity Palpation (GI): Soft to palpation, nontender, no guarding, not rigid and No hepatosplenomegaly present Percussion: Yes normal to percussion Auscultation: normal bowel sounds Rectal Exam - Male: Yes deferred Skin General skin exam: no rashes or lesions noted, turgor normal, skin not dry, no jaundice, No spider nevi and no striae Rashes: no rashes Nails: normal Neuro General: oriented to person, oriented to place and oriented to time Cranial nerves: Yes Equal, round and reactive pupils present and Yes Normal hearing present Speech: No Abnormal speech present Extrem General: Yes normal to inspection, No clubbing, No cyanosis and No edema Psych Appearance: grossly normal and well kempt Mental Status: mental status grossly normal Speech and movement: Normal speech and movement present Affect: normal affect Attitude: cooperative Thought process: Normal thought process present and not confabulating Thought content: Normal thought content present Insight: Fair insight present (Psych) Judgement: Fair judgement present (Psych) Assessment & Plan Assessment & Plan (1) Iron deficiency anemia: Code(s): D50.9 - Iron deficiency anemia, unspecified Plan: Will increase the ferritin to bid and rov in 8 weeks to recheck CBC. He says he still has intermittent hemorrhoidal bleeding but ?I had this all my life I had hemorrhoid since the [place] administration. ? I tell him that when he has severe bleed he should use the cream again as he was unaware he had refills and says that the tube had completed. I asked if he has ever consider hemorrhoid surgery and is just not something he is willing to consider at this time and he has legitimate concerns given his cardiac status. He continues on oral iron supplementation but given that his ferritin is still low I think he should go twice a day for at least the next 6-8 weeks. He is agreeable to this. Return office visit in 8 weeks (2) Hemorrhoids, internal, with bleeding: Code(s): K64.8 - Other hemorrhoids (3) Rectal bleeding: Code(s): K62.5 - Hemorrhage of anus and rectum Medications: Refilled hydrocortisone 2.5% (Proctosol HC) BE SURE TO INCLUDE RECTAL APPICATOR!! 1 appl [place] BID 30 grams 6RF hemorrhoids K64.9 - Unspecified hemorrhoids Coding Level of Care Code Est Pt Level 3 (14004) Diagnoses Iron deficiency anemia D50.9 Hemorrhoids, internal, with bleeding K64.8 Rectal bleeding K62.5
[2023-09-04 08:00] VITALS: BP 76/46; PULSE 79; BMI 34.3
== END 2023-09-04 08:25 | disposition home or self-care (01) ==
PROVIDERS: PCP Internal Medicine; Visit Provider Nurse Practitioner
DX: D50.9 Iron deficiency anemia, unspecified (principal); K64.8 Other hemorrhoids; K62.5 Hemorrhage of anus and rectum
CPT/HCPCS: 99213

== ENCOUNTER → 2023-09-04 07:54 | Outpatient (BNVA) | payer MEDICARE, SELFPAY | PROVIDERS: PCP Internal Medicine; Visit Provider Nurse Practitioner | DX: K64.8 Other hemorrhoids (principal); K62.5 Hemorrhage of anus and rectum; D50.9 Iron deficiency anemia, unspecified | CPT/HCPCS: 99212 ==

== ENCOUNTER 2023-10-05 07:00 | Outpatient (REF) | payer MEDICARE, SELFPAY ==
[2023-10-05 11:38] LABS: Hematocrit 36.3 % (42.0-52.0); Hemoglobin 10.6 g/dl (14.0-18.0); Mean Corpuscular HGB Conc 29.2 g/dl (31.0-36.0); Mean Corpuscular Hemoglobin 21.4 pg (27.0-33.0); Mean Corpuscular Volume 73.3 fL (80.0-98.0); Platelet Count 315 X10*3/uL (160-400); Red Blood Count 4.95 X10*6/uL (4.60-5.80); Red Cell Distribution Width 16.7 % (11.0-16.0); White Blood Count 6.2 X10*3/uL (4.8-10.8)
[2023-10-05 11:59] LABS: Estimated Average Glucose 117 mg/dL; Hemoglobin A1c % 5.7 % (<6.0)
[2023-10-05 12:17] LABS: Alanine Aminotransferase 19 U/L (0-40); Albumin Level 3.5 g/dL (3.5-5.0); Alkaline Phosphatase 62 U/L (39-117); Aspartate Amino Transferase 22 U/L (5-37); Bilirubin Direct 0.2 mg/dL (0.0-0.5); Bilirubin Total 0.4 mg/dL (0.0-1.0); Cholesterol 101 mg/dL (<200); Glucose Fasting 111 mg/dL (60-99); HDL Cholesterol 40 mg/dL (>40); LDL Cholesterol Calculated 47 mg/dL (<100); Total Protein 5.8 g/dL (6.5-8.0); Triglycerides 71 mg/dL (<150)
[2023-10-05 12:23] LABS: Alanine Aminotransferase 20 U/L (0-40); Albumin Level 3.5 g/dL (3.5-5.0); Alkaline Phosphatase 62 U/L (39-117); Anion Gap 11 (12-20); Aspartate Amino Transferase 20 U/L (5-37); Bilirubin Total 0.4 mg/dL (0.0-1.0); Blood Urea Nitrogen 19 mg/dL (9-16); Calcium 9.7 mg/dL (8.4-10.2); Carbon Dioxide 23 mmol/L (22-29); Chloride 110 mmol/L (96-108); Estimated Glomerular Filt Rate > 60; Glucose Random 112 mg/dL (60-115); Potassium 4.7 mmol/L (3.3-5.1); Sodium 139 mmol/L (135-145); Total Protein 5.8 g/dL (6.5-8.0)
[2023-10-08 22:04] LABS: NT-proBNP 294 pg/mL (<125)
== END 2023-10-05 07:01 | disposition home or self-care (01) ==
LOC: HO.HMGCLDS 07:00
PROVIDERS: Absent Provider Internal Medicine Cardiovascular Disease; PCP Internal Medicine; Visit Provider Internal Medicine
DX: I25.5 Ischemic cardiomyopathy (principal); R73.03 Prediabetes; E78.00 Pure hypercholesterolemia, unspecified
CPT/HCPCS: 36415; 80053; 80061; 80076; 82248; 82947; 83036; 83880; 85027

== ENCOUNTER 2023-11-04 07:50 | Outpatient (REF) | payer MEDICARE, SELFPAY ==
[2023-11-04 11:05] LABS: Ferritin 11 ng/mL (20-250)
== END 2023-11-04 07:51 | disposition home or self-care (01) ==
LOC: HO.LAB 07:50
PROVIDERS: PCP Internal Medicine; Visit Provider Nurse Practitioner
DX: D50.9 Iron deficiency anemia, unspecified (principal); K64.8 Other hemorrhoids
CPT/HCPCS: 36415; 82728; 99212

== ENCOUNTER 2023-11-04 07:50 | Outpatient (AMB) | payer MEDICARE, SELFPAY ==
--- NOTE | 2023-11-04 08:02 | MHC.OFFVIS ---
Intake Vital Signs 11/04/23 08:04 Height 5 ft 7 in Weight 220 lb BMI 34.5 BP 100/47 L Blood Pressure Location Lt brachial Position Sitting Pulse 72 Intake Visit Reasons: 8 week follow up anemia Intake Note: Patient 8 week follow up Anemia. Patient denies any GI issues. 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 He says he still has intermittent hemorrhoidal bleeding but ?I had this all my life I had hemorrhoid since the [employer] administration. ? I tell him that when he has severe bleed he should use the cream again as he was unaware he had refills and says that the tube had completed. I asked if he has ever consider hemorrhoid surgery and is just not something he is willing to consider at this time and he has legitimate concerns given his cardiac status. He continues on oral iron supplementation but given that his ferritin is still low I think he should go twice a day for at least the next 6-8 weeks. He is agreeable to this. Return office visit in 8 weeks (2) Hemorrhoids, internal, with bleeding: Code(s): K64.8 - Other hemorrhoids (3) Rectal bleeding: Code(s): K62.5 - Hemorrhage of anus and rectum Medications: Refilled hydrocortisone 2.5 % (Proctosol HC) BE SURE TO INCLU DE RECTAL APPICATO R!! 1 appl [place] BID 30 grams 6RF hemorrho ids K64.9 - Unspecifie d hemorrhoids TODAY'S VISIT He says that his hemorrhoids only bleed occasionally now. He saw his primary care provider who told him to go back to 1 of the iron a day because he felt that his iron levels were okay. He has dropped slightly since the last visit however. At this point I am just going to a ferritin to complete the picture but I think it is of limited value for him to continue to follow-up with me. I will have him follow-up with his primary care provider and should he have any further GI problems he is always welcome to return to our service. [facility] Medical History (Updated 11/04/23 @ 08:21 by REDD Henry) COVID-19 vaccine series completed Iron deficiency anemia Pre-diabetes Elevated cholesterol HTN (hypertension) CHF (congestive heart failure) Myocardial infarction CAD (coronary artery disease) Ischemic cardiomyopathy Diverticulitis GERD (gastroesophageal reflux disease) Surgical History History of cardiac defibrillator placement Hx of heart artery stent Hx of exploratory laparotomy History of colostomy reversal History of incisional hernia repair History of laparotomy History of esophagogastroduodenoscopy (EGD) H/O colonoscopy Family History Father Lung cancer Social History Patient Tobacco Use Status: Former Tobacco user Quit Date: 5 yrs ago Tobacco use type: Cigarette service: No Current occupational status: unemployed Review of Systems Const Denies fatigue, Denies fever(s), Denies night sweats, Denies poor appetite and Denies weight loss Eyes Details: glasses Reports requires corrective lenses ENT Reports Normal hearing present, Denies dental pain, Denies dysphagia, Denies hearing loss, Denies mouth pain, Denies odynophagia, Denies throat swelling, Denies tongue swelling and Reports other (Dentition adequate) Card Reports no additional complaints Resp Reports no additional complaints GI Denies abdominal pain, Denies melena, Denies bloating, Reports hematochezia, Denies constipation, Denies GI cramping, Denies dysphagia, Denies excessive flatus, Denies early satiety, Denies heartburn, Denies diarrhea, Denies nausea, Denies odynophagia, Denies vomiting and Denies hematemesis Skin/Breast Denies pruritus, Denies lesions, Denies rash and Denies jaundice Neuro Reports Normal hearing present and Denies Abnormal speech present Endo Denies fatigue Aller/Immun Denies throat swelling and Denies tongue swelling Physical Exam Vital Signs: Last Vital Signs Pulse 72 11/04/23 08:04 BP 100/47 L 11/04/23 08:04 BMI result Body Mass Index 34.5 Const General: cooperative, no acute distress, well developed and well groomed Nutritional Appearance: well nourished and obese Orientation/consciousness: oriented to person, oriented to place and oriented to time Limitations: No language barrier HEENT Head: Yes normocephalic and Yes atraumatic Eyes General: appearance normal, both eyes and all related structures Pupils: Equal, round and reactive pupils present Neck Neck: Yes normal visual inspection and Yes no lymphadenopathy Thyroid: Thyroid normal Resp Effort & Inspection: normal respiratory effort and able to speak in complete sentences Auscultation: clear to auscultation bilaterally Cardio Rate: regular rate Rhythm: regular rhythm Heart sounds: Normal, physiologic split S2 sound present Peripheral pulses: radial pulses present and posterior tibial pulses present GI Other: Asymmetrical bulge to the left Inspection: No distended, No Abdominal panniculus present and Yes visible herniation Palpation (GI): Soft to palpation, nontender, no guarding, not rigid and No hepatosplenomegaly present Percussion: Yes normal to percussion Auscultation: normal bowel sounds Rectal Exam - Male: Yes deferred Skin General skin exam: no rashes or lesions noted, turgor normal, skin not dry, no jaundice, No spider nevi and no striae Rashes: no rashes Nails: normal Neuro General: oriented to person, oriented to place and oriented to time Cranial nerves: Yes Equal, round and reactive pupils present and Yes Normal hearing present Speech: No Abnormal speech present Extrem General: Yes normal to inspection, No clubbing, No cyanosis and No edema Psych Appearance: grossly normal and well kempt Mental Status: mental status grossly normal Speech and movement: Normal speech and movement present Affect: normal affect Attitude: cooperative Thought process: Normal thought process present and not confabulating Thought content: Normal thought content present Insight: Limited insight present (Psych) Judgement: Limited judgement present (Psych) Assessment & Plan Assessment & Plan (1) Iron deficiency anemia: Code(s): D50.9 - Iron deficiency anemia, unspecified (2) Hemorrhoids, internal, with bleeding: Comment: Patient unwilling to consider hemorrhoid surgery which is not unreasonable given his cardiac risks. Code(s): K64.8 - Other hemorrhoids Plan He says that his hemorrhoids only bleed occasionally now. He saw his primary care provider who told him to go back to 1 of the iron a day because he felt that his iron levels were okay. He has dropped slightly since the last visit however. At this point I am just going to a ferritin to complete the picture but I think it is of limited value for him to continue to follow-up with me. I will have him follow-up with his primary care provider and should he have any further GI problems he is always welcome to return to our service. Orders: Orders Ferritin Today D50.9 - Iron deficiency anemia, unspecified, K64.8 - Other hemorrhoids Coding Level of Care Code Est Pt Level 3 (59225) Diagnoses Iron deficiency anemia D50.9 Hemorrhoids, internal, with bleeding K64.8
[2023-11-04 08:04] VITALS: BP 100/47; PULSE 72; BMI 34.5
== END 2023-11-04 08:18 | disposition home or self-care (01) ==
PROVIDERS: PCP Internal Medicine; Visit Provider Nurse Practitioner
DX: D50.9 Iron deficiency anemia, unspecified (principal); K64.8 Other hemorrhoids
CPT/HCPCS: 99213

== ENCOUNTER 2024-04-04 07:02 | Outpatient (REF) | payer MEDICARE, SELFPAY ==
[2024-04-04 10:15] LABS: MANUAL DIFF FLAG NO
[2024-04-04 10:29] LABS: Basophils Absolute Auto 0.1 X10*3/uL (0.0-0.2); Basophils Percent Auto 0.9 % (0-2); Eosinophils Absolute Auto 0.9 X10*3/uL (0.0-0.4); Eosinophils Percent Auto 10.9 % (0-4); Hematocrit 40.3 % (42.0-52.0); Imm Gran Abs Auto 0.03 X10*3/uL (0.00-0.03); Imm Gran Pct Auto 0.4 % (0.0-0.4); Lymphocytes Absolute Auto 1.2 X10*3/uL (1.2-4.9); Mean Corpuscular HGB Conc 29.8 g/dl (31.0-36.0); Mean Corpuscular Hemoglobin 22.3 pg (27.0-33.0); Mean Corpuscular Volume 74.8 fL (80.0-98.0); Mean Platelet Volume 11.9 fL (9.4-12.4); Monocytes Absolute Auto 0.5 X10*3/uL (0.1-1.2); Monocytes Percent Auto 6.2 % (2-11); Neutrophils Absolute Auto 5.8 x10*3/uL (2.0-8.3); Neutrophils Percent Auto 67.6 % (45-73); Platelet Count 276 X10*3/uL (160-400); Red Blood Count 5.39 X10*6/uL (4.60-5.80); Red Cell Distribution Width 18.6 % (11.0-16.0); White Blood Count 8.6 X10*3/uL (4.8-10.8)
[2024-04-04 10:31] LABS: Appearance Urine Clear; Color Urine Yellow; Glucose Urine UA Negative (Negative); Leukocyte Esterase Urine Negative (Negative); Nitrite Urine Negative (Negative); PH 6.5 (5.0-9.0); Specific Gravity - Urine 1.015 (1.005-1.025); Urine Blood Negative (Negative); Urine Ketones Negative (Negative); Urine Protein Negative (Neg-Trace)
[2024-04-04 10:47] LABS: Estimated Average Glucose 111 mg/dL; Hemoglobin A1c % 5.5 % (<6.0)
[2024-04-04 10:50] LABS: Alanine Aminotransferase 23 U/L (0-40); Albumin Level 3.6 g/dL (3.5-5.0); Alkaline Phosphatase 72 U/L (39-117); Aspartate Amino Transferase 20 U/L (5-37); Bilirubin Direct 0.2 mg/dL (0.0-0.5); Bilirubin Total 0.5 mg/dL (0.0-1.0); Total Protein 5.9 g/dL (6.5-8.0)
[2024-04-04 10:52] LABS: Alanine Aminotransferase 24 U/L (0-40); Albumin Level 3.6 g/dL (3.5-5.0); Alkaline Phosphatase 73 U/L (39-117); Anion Gap 12 (12-20); Aspartate Amino Transferase 21 U/L (5-37); Bilirubin Total 0.5 mg/dL (0.0-1.0); Blood Urea Nitrogen 14 mg/dL (9-16); Calcium 9.9 mg/dL (8.4-10.2); Carbon Dioxide 23 mmol/L (22-29); Chloride 109 mmol/L (96-108); Cholesterol 114 mg/dL (<200); Estimated Glomerular Filt Rate > 60; Glucose Fasting 123 mg/dL (60-99); HDL Cholesterol 43 mg/dL (>40); Iron 21 mcg/dL (45-160); LDL Cholesterol Calculated 53 mg/dL (<100); Percent Iron Saturation 6 % (15-50); Potassium 4.3 mmol/L (3.3-5.1); Sodium 140 mmol/L (135-145); Total Iron Binding Capacity 379 mcg/dL (228-428); Total Protein 5.9 g/dL (6.5-8.0); Triglycerides 90 mg/dL (<150); Unsaturated Iron Binding 358 ug/dL
[2024-04-04 11:01] LABS: Creatinine Urine 89.72 mg/dL; Microalbum/Creatinine Ratio Ur 8.9 ug/mg cr (<30)
== END 2024-04-04 07:03 | disposition home or self-care (01) ==
LOC: HO.HMGCLDS 07:02
PROVIDERS: PCP Internal Medicine; Referring Provider Nurse Practitioner; Visit Provider Internal Medicine
DX: Z00.00 Encounter for general adult medical examination without abnormal findings (principal); R73.09 Other abnormal glucose; E78.00 Pure hypercholesterolemia, unspecified; I50.21 Acute systolic (congestive) heart failure; D50.9 Iron deficiency anemia, unspecified; E78.5 Hyperlipidemia, unspecified; I25.10 Atherosclerotic heart disease of native coronary artery without angina pectoris
CPT/HCPCS: 36415; 80053; 80061; 80076; 81003; 82043; 82248; 82570; 83036; 83540; 85025

== ENCOUNTER 2024-10-14 06:49 | Outpatient (REF) | payer MEDICARE, SELFPAY ==
[2024-10-14 11:15] LABS: Alanine Aminotransferase 25 U/L (0-40); Albumin Level 3.6 g/dL (3.5-5.0); Alkaline Phosphatase 86 U/L (39-117); Aspartate Amino Transferase 34 U/L (5-37); Bilirubin Direct 0.2 mg/dL (0.0-0.5); Bilirubin Total 0.5 mg/dL (0.0-1.0); Cholesterol 112 mg/dL (<200); Glucose Fasting 129 mg/dL (60-99); HDL Cholesterol 40 mg/dL (>40); LDL Cholesterol Calculated 49 mg/dL (<100); Triglycerides 115 mg/dL (<150)
[2024-10-14 12:29] LABS: Estimated Average Glucose 123 mg/dL; Hemoglobin A1C 125.7699 umol/L; Hemoglobin A1c % 5.9 % (<6.0); Total Hemoglobin (HGBA1C) 3090.9679 umol/L
[2024-10-14 13:35] LABS: Reflex LDLD? No
== END 2024-10-14 06:50 | disposition home or self-care (01) ==
LOC: HO.HMGCLDS 06:49
PROVIDERS: PCP Internal Medicine; Visit Provider Internal Medicine
DX: E78.00 Pure hypercholesterolemia, unspecified (principal); R73.09 Other abnormal glucose
CPT/HCPCS: 36415; 80061; 80076; 82947; 83036

== ENCOUNTER 2025-01-06 07:02 | Outpatient (REF) | payer MEDICARE, SELFPAY ==
--- OUTSIDE RECORDS SUMMARY | 2025-01-06 07:04 | XMS_ITS | Clinical Summary ---
Author Organization [facility] Facility Address [address] [place] [address] Care Team Providers Care Toll Booth Operator Name Role Phone Blayne Sampson MD Primary Care Provider [phone] Social History Tobacco Use Types Packs/Day Years Used Date Smoking Tobacco: Never Assessed Sex and Gender Information Value Date Recorded Sex Assigned at Not on file Legal Sex Male 2:39 PM EST Gender Identity Not on file Sexual Orientation Not on file Plan of Treatment Health Maintenance Due Date Last Done Comments Colorectal Cancer Screening: Annual FOBT 2009 Colorectal Cancer Screening: Colonoscopy 2009 Colorectal Cancer Screening: Sigmoidoscopy 2009 Influenza Vaccine (#1) 2024 Hepatitis B Vaccine Aged Out No longe r eligible based on patient's age to complete this topic Pneumococcal Vaccine: Pediat rics (0 to 5 Years) and At-Risk Patients (6 to 64 Years) Aged Out No longer eligible b ased on patient's age to complete this topic Insurance [facility] Care Teams Toll Booth Operator Relationship Specialty Start Date End Date Blayne Sampson MD [id number] [place], [place] PCP - General Internal Medicine 11/29/20
--- OUTSIDE RECORDS SUMMARY | 2025-01-06 07:04 | XMS_ITS ---
Author Organization Blayne Sampson MD Address [address] [place], [place] [phone] Care Team Providers Care Back Maker Name Role Phone Blayne Sampson Primary Care Provider [phone] Allergies No Known Allergies REASON FOR VISIT [...] Location Date Provider Diagnosis Blayne Sampson MD [address] [place] [address] [place] [phone] 10/21/2024 Blayne Sampson Essential hypertensi on I10 [...] regiment Next Appt Details Provider Name:Blayne sauceda, 04/17/2025 07:45:00 AM, [address] [place] [address], [place] [address], [place], [place], [phone], Provider Name:Blayne sauceda, 04/24/2025 01:00:00 PM, [address] [place] [address], [place] [address], [place], [place], [phone], Progress Notes * CASSANDRA, WalamrikDOB: [birth year] (64 yo M)Acc No.[id number]:10/21/2024 Progress Notes Patient:?CassandraStef sahni Provider:?Blayne Sampson MD :1960???Age:64 Y???Sex:Male Norman e:10/21/2024 Address:[address] [place] [address] [id number] Subjective: * Chief Complaints: * ???6 month * HPI: ???Symptom(s):? patient is a 64 yo male here for6 month follow up. is doing well. no chest pain. * ROS:?General/Constitutional:?Denies?Chills.?Denies?Fatigue.?Denies?Fever.?Denies?Headache.?ENT:?Patient denies?decreased sense of smell , any loss of taste , sore throat.?Denies?Sore throat.?Endocrine:?Admits?Difficulty sleeping.?Denies?Dizziness.?Denies?Excessive sweating.?Admits?Excessive thirst.?Admits?Frequent urination.?Respiratory:?Denies?Cough.?Denies?Shortness of breath at rest.?Denies?Shortness of breath with exertion.?Gastrointestinal:?Denies?Diarrhea.?Denies?Nausea.?Musculoskeletal:?Patient denies?muscle aches.?Peripheral Vascular:?Patient denies?red and blue toes.? * Medical History:? * Surgical History:? * Hospitalization/Major Diagno stic Procedure:? * Medications:?TakingClopidogr el Bisulfate 75 MG Tablet 1 tablet Orally [...] 1 tablet Orally once a dayTaking Entresto 49- 51 MG Tablet 1 tablet Orally Twice a dayNot-Taking/PRNExcedrin Extra Strength 250-250-65 MG Tablet 2 tablets as needed for pain Orally every 6 hrsMedication List reviewed and reconciled with the patientNot-Taking/PRN Excedrin Extra Strength 250-250-65 MG Tablet 2 tablets as needed for pain Orally every 6 hrsMedication List reviewed and reconciled with the patient * Allergies:?N.K.D.A.yes[Aller gies Verified] Objective: * Vitals:?Ht: 67.5, Wt:221, BM I:34.10, BP:104/56 weight is up 5 pounds since 04-21-24. * ???Past Orders: ???Lab:Lipid Panel with Refl ex (Order Date - 10/14/2024) (Collection Date - 10/14/2024) ? Value Reference Range ?Triglycerides 115 <150 - mg/dL ?Cholesterol 112 <200 - m g/dL ?LDL Cholesterol Calculated 49 <100 - mg/dL ?HDL Cholesterol 40 L >40 - mg/dL ???Lab:Hemoglobin A1c (Order Date - 10/14/2024) (Collection Date - 10/14/2024) ? Value Reference Range ?Hemoglobin A1c % 5.9 <6. 0 - % ?Estimated Average Glucose 123 - mg/dL ???Lab:Liver Panel (Order Da te - 10/14/2024) (Collection Date - 10/14/2024) ? Value Reference Range ?Bilirubin Total 0.5 0.0- 1.0 - mg/dL ?Bilirubin Direct 0.2 0.0 -0.5 - mg/dL ?Aspartate Amino Transferase 34 5-37 - U/L ?Alanine Aminotransferase 25 0-40 - U/L ?Total Protein 6.0 L 6.5-8. 0 - g/dL ?Albumin Level 3.6 3.5-5. 0 - g/dL ?Alkaline Phosphatase 86 39-117 - U/L ???Lab:Glucose Fasting (Orde r Date - 10/14/2024) (Collection Date - 10/14/2024) ? Value Reference Range ?Glucose Fasting 129 H 60-9 9 - mg/dL * Examination: ???General Examination: ?GENERAL APPEARANCE:?alert, well hydrated, in no distress , male.?HEAD:?normocephalic.?SKIN:?good turgor.?HEART:?regular rate and rhythm , no murmurs, rubs, gallops.?LUNGS:?no wheezes, rales, rhonchi , good air movement , clear to auscultation bilaterally.? Assessment: * Assessment: 1.?Essential hypertension - I10 (Primary)?2.?Pure hypercholesterolemia - E78.00?3.?Acute systolic congestive heart failure - I50.21? Plan: * Treatment: 2.?Pure hypercholesterolemia ? Continue Atorvastatin Calcium Tablet, 40 MG, 1 tablet, Orally, Once a day.?? Notes: doing well with good ldl, will continue to monitor and will continuecurrent regiment?? 3.?Acute systolic congestive heart failure? Continue Entresto Tablet, 49-51 MG, 1 tablet, Orally, Twice a day;?Continue Furosemide Tablet, 40 MG, 1 tablet, Orally, once a day.?? Notes: doing well. no shortness of breath, will contiue current regiment?? * Procedure Codes:? * * Sign off status: Completed true * Provider:?Blayne Sampson MD Date:?1 12/22/2023 Generated for Carltoni kaykay/Wally/eTransmitting on:?01/06/2025 07:04 AM EDT History and Physical Notes * [...]
--- OUTSIDE RECORDS SUMMARY | 2025-01-06 07:05 | XMS_ITS ---
Author Organization Blayne Sampson MD Address [address] [place], [place] [phone] Care Team Providers Care Director Of Player Personnel Name Role Phone Camilla Blayne Primary Care Provider [phone] Results Component Value Reference Range Notes Liver Panel Reviewed date:10/14/2024 04:28:28 PM Interpretation: Performing Lab:[facility], [address] [place] [address] Notes/Report: Bilirubin Total 0.5 0.0-1.0 mg/dL Bilirubin Direct 0.2 0.0-0.5 mg/dL Aspartate Amino Transferase 34 5-37 U/L Alanine Aminotransferase 25 0-40 U/L Total Protein 6.0 6.5-8.0 g/dL Albumin Level 3.6 3.5-5.0 g/dL Alkaline Phosphatase 86 39-117 U/L Glucose Fasting Reviewed date:10/14/2024 04:28:00 PM Interpretation: Performing Lab:[facility], [address] [place] [address] Notes/Report: Glucose Fasting 129 60-99 mg/dL A fasting glucose of 126 mg/dl or greater on more than one occasion is considered diagnostic of diabetes. Lipid Panel with Reflex Reviewed date:10/14/2024 04:28:07 PM Interpretation: Performing Lab:[facility], [address] [place] [phone] Notes/Report: Triglycerides 115 <150 mg/dL Desirable Triglyceride: [...] A1c Reviewed date:10/14/2024 04:28:14 PM Interpretation: Performing Lab:[facility], [address] [place] [phone] Notes/Report: Hemoglobin A1c % 5.9 <6.0 % [...] average glucose, using the formula of the [id number] Average Glucose study (ADAG), Diabetes Care, Vol.31,#8, May. 2007 REASON FOR VISIT fasting lipids Encounters Encounter Location Date Provider Diagnosis Blayne Sampson MD [address] [place] [address] Drive [address] [place], [place] [phone] 10/14/2024 Blayne Sampson Pure hypercholestero lemia E78.00 and Prediabetes R73.09 Assessments Encounter Date Diagnosis (ICD Code) Assessment Notes Treatment Notes Treatment Clinical Notes Section Notes 10/14/2024 Pure hypercholesterolemia (ICD-10 - E78.00) Order faxed to [facility] [phone] 10/14/2024 Prediabetes (ICD-10 - R73.09) Plan Of Treatment Treatment Notes Assessment Notes Pure hypercholesterolemia Order faxed to [facility] [facility] [phone] Next Appt Details Provider Name:Blayne Rivera ier, 04/17/2025 07:45:00 AM, [address], [address], [place], [place], [phone], Provider Name:Blayne Roblero Ryderchris ier, 04/24/2025 01:00:00 PM, [address], [address], [place], [place], [phone], Progress Notes * Stef MCMILLANDOB: [birth year] (64 yo M)Acc No.[id number]:10/14/2024 Progress Note Patient:?Stef MCMILLAN Provider:?Blayne Sampson MD :1960???Age:64 Y???Sex:Male Norman e:10/14/2024 Address:[address] [place], [place] [phone] Subjective: * Chief Complaints: * ???1. Fasting lipids. * Medical History:? Objective: * Vitals:? Assessment: * Assessment: 1.?Pure hypercholesterolemia - E78.00???2.?Prediabetes - R73.09??? Plan: * Treatment: ?LAB: Glucose Fasting (Collection Date & Time - 10/14/2024 07:04 AM)* Jodi Villatoro 10/10/20 07:19:25 AM EST > to be done 10-14-24 ?LAB: Lipid Panel with Reflex (Collection Date & Time - 10/14/2024 07:04 AM) * Jodi Villatoro 10/10/20 07:19:25 AM EST > to be done 10-14-24 ?LAB: Hemoglobin A1c (Collection Date & Time - 10/14/2024 07:04 AM)* Marlenesaige Jodi B 10/10/20 07:19:25 AM EST > to be done 10-14-24 Notes: Order faxed to [facility] [phone]??2.?Prediabetes?LAB: Liver Panel (Collection Date & Time - [...] appointment provider. Sign off status: Pending * Provider:?Blayne Sampson MD Date:?1 12/15/2023 Generated for Chester mccracken/Wally/eTransmitting on:?01/06/2025 07:04 AM EDT
--- OUTSIDE RECORDS SUMMARY | 2025-01-06 07:05 | XMS_ITS | Patient Health Record ---
Author Organization [facility] Address [address] [place] [phone] Care Team Providers Care Primary Teaching Assistant Name Role Phone Camilla AGUILAR, Blayne Primary Care Provider Eliot Gutierrez Jr Unavailable Reason For Referral No Information Medications Medication SIG (Take, Route, Frequency, Duration) Notes Start Date End Date Status Entresto 97-103 MG TAKE 1 TABLET BY NAT TH TWICE A DAY Oral for 30 Active Atorvastatin Calcium 40 MG TAKE 1 TABLET BY MOUTH EVERY DAY Oral for 30 Active Spironolactone 25 MG TAKE 1 TABLET BY MO UTH EVERY DAY WITH FOOD Oral for 30 Active Iron 325 (65 Fe) MG 1 tablet Orally Once a day for 30 day(s) Active Clopidogrel Bisulfate 75 MG TAKE 1 TABLE T BY MOUTH EVERY DAY Oral for 30 Active Aspirin Low Dose 81 MG TAKE 1 TABLET BY MOUTH EVERY DAY Oral for 90 Active Furosemide 40 MG TAKE 1 TABLET BY NAT TH TWICE A DAY Oral for 90 Active MiraLax (colon prep) 8.3 ounce ((238) grams mixed with Gatorade or Crystal Light orally begin at 5:00 p.m. the day before the procedure for 1 day 07/19/2020 Active Immunizations Vaccine Route Administration Date Status Comme nts Influenza Unknown 06/26/2020 Administered Social History Tobacco Use: Social History Observation Description Date Details (start date - stop date) Former Smoker NA - NA Tobacco Use/Smoking Question Answer Notes Patient is a former smoker When did you stop smoking? 2017 How long has it been since you last smoked? 1-5 years Alcohol Screen Question Answer Notes Did you have a drink containing alcohol in the p ast year? No Points 0 Interpretation Negative Problems Problem Type SNOMED Code ICD Code Onset Dates Problem Status W/U Status Risk Notes Problem [id number] Iron deficiency anemia, unspecified iron deficiency anemia type (D50.9) Active confirmed Plan Of Treatment Future Test Test Name Order Date UPPER GI ENDOSCOPY 07/19/2020 COLONOSCOPY 07/19/2020 Insurance Providers Payer Name Payer Address Payer Phone Subscriber Number Group Number Insured Name Patient Relationship to Insured Coverage Start Date Coverage End Date [facility] [place] [employer] [address] [place] [address] [phone] [id number] FIORELLA BURROWS Self - patient is the insured MEDICAID OF [facility] [address] [place] [address] [phone] [id number] FIORELLA BURROWS Self - patient is the insured Medical (General) History Medical History History ICD Code coronary artery disease with history of NV and stent placement hypertension diverticulitis elevated cholesterol ischemic cardiomyopathy Surgical History Surgery Date(Month/Year) perforated diverticulitis wi th colostomy, sigmoid resection and Abdulaziz pouch, status post reversal. 2007 shoulder surgery 1988 stent/defibrillator placement, [facility] cardiology
--- OUTSIDE RECORDS SUMMARY | 2025-01-06 07:05 | XMS_ITS ---
Author Organization Blayne Sampson MD Address [address] [place], [place] [id number] Care Team Providers Care Patient Safety Attendant Name Role Phone Blayne Sampson Primary Care [...] Location Date Provider Diagnosis Blayne Sampson MD [address] [place] [address] [address] [place], [place] [id number] 04/21/2024 Blayne Sampson Iron deficiency E61. 1 [...] 6 Months, Reason: Provider Name:Blayne Rivera ietomy, 04/17/2025 07:45:00 AM, [address], [address], [place], [id number], Provider Name:Blayne sauceda, 04/24/2025 01:00:00 PM, [address], [address], [place], [id number], Progress Notes * Stef MCMILLANDOB: [birth year] (63 yo M)Acc No.[id number]:04/21/2024 Progress Notes Patient:?Stef Mcmillan Provider:?Blayne Sampson MD :1960???Age:63 Y???Sex:Male Norman e:04/21/2024 Address:[address] [place], [place] [id number] Subjective: * Chief Complaints: * ???ANNUAL EXAM * HPI: ???Depression Screening:?PHQ-9?Little interest or pleasure in doing things?Not at all,?Feeling down, depressed, or hopeless?Not at all,?Trouble falling or staying asleep, or sleeping too much?Not at all,?Feeling tired or having little energy?Not at all,?Poor appetite or overeating?Not at all,?Feeling bad about yourself or that you are a failure, or have let yourself or your family down?Not at all,?Trouble concentrating on things, such as reading the newspaper or watching television?Not at all,?Moving or speaking so slowly that other people could have noticed; or the opposite, being so fidgety or restless that you have been moving around a lot more than usual?Not at all,?Thoughts that you would be better off or of hurting yourself in some way?Not at all,?Total Score?0.?Interpretation and Intervention?Depression Screening Findings?Negative,?Follow-Up for Depression?: review of PHQ-9 found negative result, no follow-up needed.?Communication Needs:?Communication Needs?Does the patient have a hearing impairment?No,?Does the patient have a vision impairment??Yes,?If yes, what is the vision impairment??Glasses,?Does the patient have a cognition impairment??No.?Fall Risk:?History?Have you had any falls with injury in the past year??No,?Have you had two or more falls in the past year??No.?SDOH Questions:?SDOH Questions?In the past year have you been worried about losing housing??No,?In the past year have you or any family members you live with been unable to get any of the following when it was really needed? Check all that apply:?None.?Symptom(s):? patient is a 63 yo male here for annual visit with review of recent labs ans follow up of chronic issues. * ROS:?General/Constitutional:?Patient denies?fatigue , headache.?Change in appetite?denies.?Chills?denies.?Fever?denies.?Ophthalmologic:?Blurred vision?denies.?Discharge?denies.?Pain?denies.?ENT:?Decreased hearing?denies.?Sore throat?denies.?Swollen glands?denies.?Endocrine:?Cold intolerance?denies.?Excessive thirst?denies.?Heat intolerance?denies.?Weight loss?denies.?Respiratory:?Cough?denies.?Shortness of breath at rest?denies.?Shortness of breath with exertion?denies.?Wheezing?denies.?Cardiovascular:?Chest pain at rest?denies.?Chest pain with exertion?denies.?Irregular heartbeat?denies.?Shortness of breath?denies.?Gastrointestinal:?Abdominal pain?denies.?Admits?Blood in stool.?Change in bowel habits?denies.?Diarrhea?denies.?Nausea?denies.?Rectal bleeding?denies.?Vomiting?denies .?Genitourinary:?Blood in urine?denies.?Difficulty urinating?denies.?Frequent urination?denies.?Musculoskeletal:?Patient denies?muscle aches.?Painful joints?denies.?Weakness?denies.?Peripheral Vascular:?Patient denies?red and blue toes.?Skin:?Dry skin?denies.?Itching?denies.?Denies?Mole(s),? changes in moles, new moles or any lesions of concern.?Denies?Photosensitivity.?Rash?denies.?Neurologic:?Dizziness?denies.?Fainting?denies.?Headache?denies.? * Medical History:? * Surgical History:? * Hospitalization/Major Diagno stic Procedure:? * Family History:?Father: dece ased 62 yrs, diagnosed with Cancer.?Mother: 75 yrs.?Daughter(s): 75 yrs, heart disease.?4 sister(s) . .? MOther-[place] 1 brother 60 [place], Denies mental health/substance abuse family history mother ans father alcoholics, Denies mental health/substance abuse family history, No pertinent family medical history. * Social History:?Tobacco Use:?Tobacco Use/Smoking?Patient is a?former smoker,?How long has it been since you last smoked??1-5 years,?Additional Findings: Tobacco Non-User?Former smoker, currently using no form of tobacco.?Drugs/Alcohol:?Alcohol Screen?Did you have a drink containing alcohol in the past year??No,?Points?0,?Interpretation?Negative.?Miscellaneous:?no Caffeine. no Children. no Community involvements. no Exercise. no Home smoke detector use. Marital status: single. Occupation: weeks/months/years, works full-time. Pets: none. no Travel outside of the [place]. * Medications:?TakingClopidogr el Bisulfate 75 MG Tablet [...] Allergies:?N.K.D.A.yes[Aller gies Verified] Objective: * Vitals:?Ht: 67.5, Wt:216, BM I:33.33, BP:92/56 weight is down 10 pounds since 11-03-23. * ???Past Orders: ???Lab:Liver Panel (Order Da te - 04/04/2024) (Collection Date - 04/04/2024) ? Value Reference Range ?Bilirubin Total 0.5 0.0- 1.0 - mg/dL ?Bilirubin Direct 0.2 0.0 -0.5 - mg/dL ?Aspartate Amino Transferase 20 5-37 - U/L ?Alanine Aminotransferase 23 0-40 - U/L ?Total Protein 5.9 L 6.5-8. 0 - g/dL ?Albumin Level 3.6 3.5-5. 0 - g/dL ?Alkaline Phosphatase 72 39-117 - U/L ???Lab:UA CC w/rflx Micro + Cult (Order Date - 04/04/2024) (Collection Date - 04/04/2024) ? Value Reference Range ?Color Urine Yellow - ?Appearance Urine Clear - ?PH 6.5 5.0-9.0 - ?Glucose Urine UA Negative Neg ative - mg/dL ?Urine Blood Negative Negative - ?Specific [place] - Urine 1.015 1.005-1.025 - ?Urine Protein Negative Neg-Tr mike - mg/dL ?Urine Ketones Negative Negati ve - mg/dL ?Nitrite Urine Negative Negati ve - ?Leukocyte Esterase Urine Negative Negative - ???Lab:IRON PROFILE (Order D ate - 04/04/2024) (Collection Date - 04/04/2024) ? Value Reference Range ?Iron 21 L 45-160 - mcg/dL ?Total Iron Binding Capacity 379 228-428 - mcg/dL ?Percent Iron Saturation 6 L 15-50 - % ?Unsaturated Iron Binding 358 - ug/dL ???Lab:Lipid Panel (Order Da te - 04/04/2024) (Collection Date - 04/04/2024) ? Value Reference Range ?Triglycerides 90 <150 - mg/dL ?Cholesterol 114 <200 - m g/dL ?LDL Cholesterol Calculated 53 <100 - mg/dL ?HDL Cholesterol 43 >40 - mg/dL ???Lab:Microalbumin, Random (Order - 04/04/2024) (Collection Date - 04/04/2024) ? Value Reference Range ?Creatinine Urine 89.72 - m g/dL ?Microalbumin Urine 8.0 - mg/L ?Microalbum Creatinine Ratio Ur 8.9 <30 - ug/mg cr ???Lab:Hemoglobin A1c (Order Date - 04/04/2024) (Collection Date - 04/04/2024) ? Value Reference Range ?Hemoglobin A1c % 5.5 <6. 0 - % ?Estimated Average Glucose 111 - mg/dL ???Lab:Comprehensive [place]. P constance Fast (Order 04/04/2024) (Collection Date - 04/04/2024) ? Value Reference Range ?Sodium 140 135-145 - mmo l/L ?Bilirubin Total 0.5 0.0- 1.0 - mg/dL ?Aspartate Amino Transferase 21 5-37 - U/L ?Alanine Aminotransferase 24 0-40 - U/L ?Total Protein 5.9 L 6.5-8. 0 - g/dL ?Albumin Level 3.6 3.5-5. 0 - g/dL ?Alkaline Phosphatase 73 39-117 - U/L ?Potassium 4.3 3.3-5.1 - mmol/L ?Chloride 109 H 96-108 - mm ol/L ?Carbon Dioxide 23 22-29 - mmol/L ?Anion Gap 12 12-20 - ?Blood Urea Nitrogen 14 9-16 - mg/dL ?Creatinine 0.81 0.5-1.4 - mg/dL ?Estimated Glomerular Filt Rate > 60 - ?Glucose Fasting 123 H 60-9 9 - mg/dL ?Calcium 9.9 8.4-10.2 - m g/dL ???Lab:Complete Blood Count Auto Diff (Order Date - 04/04/2024) (Collection Date - 04/04/2024) ? Value Reference Range ?White Blood Count 8.6 4. 8-10.8 - X10*3/uL ?Red Blood Count 5.39 4.60 -5.80 - X10*6/uL ?Hemoglobin 12.0 L 14.0-18.0 - g/dl ?Hematocrit 40.3 L 42.0-52.0 - % ?Mean Corpuscular Volume 74.8 L 80.0-98.0 - fL ?Mean Corpuscular Hemoglobin 22.3 L 27.0-33.0 - pg ?Mean Corpuscular HGB Conc 29.8 L 31.0-36.0 - g/dl ?Red Cell Distribution Width 18.6 H 11.0-16.0 - % ?Platelet Count 276 160-4 00 - X10*3/uL ?Mean Platelet Volume 11.9 9.4-12.4 - fL ?Neutrophils Percent Auto 67.6 45-73 - % ?Imm Gran Pct Auto 0.4 0. 0-0.4 - % ?Lymphocytes Percent Auto 14.0 L 20-40 - % ?Monocytes Percent Auto 6.2 2-11 - % ?Eosinophils Percent Auto 10.9 H 0-4 - % ?Basophils Percent Auto 0.9 0-2 - % ?NRBC Pct Auto 0.0 0.0-0. 2 - /100WBC ?Neutrophils Absolute Auto 5.8 2.0-8.3 - x10*3/uL ?Imm Gran Abs Auto 0.03 0. 00-0.03 - X10*3/uL ?Lymphocytes Absolute Auto 1.2 1.2-4.9 - X10*3/uL ?Monocytes Absolute Auto 0.5 0.1-1.2 - X10*3/uL ?Eosinophils Absolute Auto 0.9 H 0.0-0.4 - X10*3/uL ?Basophils Absolute Auto 0.1 0.0-0.2 - X10*3/uL ?NRBC Abs Auto 0.000 0.0-0. 012 - X10*3/uL * Examination: ???General Examination: ?GENERAL APPEARANCE:?well developed, well nourished, in no acute distress.?HEAD:?normocephalic, atraumatic.?EYES:?pupils equal, round, reactive to light and accommodation, sclera non-icteric.?EARS:?normal.?ORAL CAVITY:?mucosa moist.?THROAT:?clear.?NECK/THYROID:?neck supple, full range of motion, no cervical lymphadenopathy, no bruits.?SKIN:?warm and dry, no suspicious lesions.?HEART:?regular rate and rhythm, S1, S2 normal, no murmurs.?LUNGS:?clear to auscultation bilaterally.?ABDOMEN:?soft, nontender, nondistended, bowel sounds present, normal, no organomegaly , no masses palpable.?RECTAL EXAM:?normal tone, no external hemorrhoids, no masses palpable, prostate normal, stool guaiac , abnormal positive.?MALE GENITOURINARY:?circumcised, no penile lesions or discharge, no testicular mass, testes descended bilaterally.?EXTREMITIES:?no clubbing, cyanosis, or edema.?NEUROLOGIC:?nonfocal, motor strength normal upper and lower extremities, sensory exam intact.? Assessment: * Assessment: 1.?Annual physical exam - Z0 0.00 (Primary)?2.?Iron deficiency - E61.1?3.?Acute systolic congestive heart failure - I50.21?4.?Stool guaiac positive - R19.5?5.?Essential hypertension - I10?6.?Pure hypercholesterolemia - E78.00?7.?Colon cancer screening - Z12.11?8.?Negative depression screening - Z13.31? Plan: * Treatment: 2.?Iron deficiency? Notes: has been evaluated with colonoscopy.?? 3.?Acute systolic congestive heart failure? Continue Furosemide Tablet, 40 MG, 1 tablet, Orally, once a day;?Continue Entresto Tablet, 49-51 MG, 1 tablet, Orally, Twice a day.?? Notes: stable followed by cardiology, will continue current regiment.?? 4.?Stool guaiac positive? Notes: has always seeing in stool. had colonoscopy.?? 5.?Essential hypertension? Continue Aldactone Tablet, 25 MG, 1 tablet, Orally;?Continue Toprol XL Tablet Extended Release 24 Hour, 25 MG, 1 tablet, Orally, Once a day.?? Notes: stable, will continue to monitor, will continue current regment.?? 6.?Pure hypercholesterolemia ? Continue Atorvastatin Calcium Tablet, 40 MG, 1 tablet, Orally, Once a day.?? Notes: stable, will continue current regiment.?? 7.?Colon cancer screening?LAB: Occult Blood, Stool, Guaiac?Positive ? Value Reference Range ?Occult Blood, Stool, Guaiac Pos Notes: positive sreen.??8.?Negative depression screening? Notes: negative screen.?? * Procedure Codes:?76013 TEST FOR BLOOD, FECES * Follow Up:?6 Months * * Sign off status: Completed true * Provider:?Blayne Sampson MD Date:?0 04/21/2024 Generated for Chester mccracken/Wally/Hannah on:?01/06/2025 07:05 AM EDT History and Physical Notes * [...] had two or more falls in the st year?: No Communication Needs Communication Needs Does the patient have a hearing impairment: No Does the patient have a vision impairmen t?: Yes ?If yes, what is the vision impairment?: Glasses Does the patient have a cognition impair ment?: No Examination Category Sub-Category Detail Notes Category Not es General Examination GENERAL APPEARANCE: well dev eloped, well nourished, in no acute distress HEAD: normocephalic, atrau matic EYES: pupils equal, round, reactive to light and accommodation, sclera non- icteric EARS: normal THROAT: clear NECK/THYROID: neck supple, [...]
[2025-01-06 10:56] LABS: Alanine Aminotransferase 20 U/L (0-40); Albumin Level 3.8 g/dL (3.5-5.0); Alkaline Phosphatase 76 U/L (39-117); Anion Gap 12 (12-20); Aspartate Amino Transferase 28 U/L (5-37); Bilirubin Direct 0.2 mg/dL (0.0-0.5); Bilirubin Total 0.5 mg/dL (0.0-1.0); Blood Urea Nitrogen 19 mg/dL (9-16); Calcium 9.6 mg/dL (8.4-10.2); Carbon Dioxide 20 mmol/L (22-29); Chloride 111 mmol/L (96-108); Cholesterol 106 mg/dL (<200); Estimated Glomerular Filt Rate > 60; Glucose Random 115 mg/dL (60-115); HDL Cholesterol 41 mg/dL (>40); LDL Cholesterol Calculated 45 mg/dL (<100); Potassium 4.6 mmol/L (3.3-5.1); Sodium 138 mmol/L (135-145); Total Protein 6.6 g/dL (6.5-8.0); Triglycerides 100 mg/dL (<150)
[2025-01-11 05:48] LABS: NT-proBNP 254 pg/mL (<125)
== END 2025-01-06 07:03 | disposition home or self-care (01) ==
LOC: HO.HMGCLDS 07:02
PROVIDERS: PCP Internal Medicine; Visit Provider Internal Medicine Cardiovascular Disease
DX: I25.10 Atherosclerotic heart disease of native coronary artery without angina pectoris (principal); E78.5 Hyperlipidemia, unspecified
CPT/HCPCS: 36415; 80053; 80061; 82248; 83880

== ENCOUNTER 2025-04-17 07:01 | Outpatient (REF) | payer MEDICARE, SELFPAY ==
--- OUTSIDE RECORDS SUMMARY | 2025-04-17 03:45 | XMS_ITS ---
Author Organization Blayne Sampson MD Address [address] [place] [phone] Care Team Providers Care Operations Support Manager Name Role Phone Camilla Blayne Primary Care Provider [phone] REASON FOR VISIT yearly fasting labs Encounters Encounter Location Date Provider Diagnosis Blayne Sampson MD [address] [place] [phone] 04/17/2025 Blayne Sampson Blood tests for routine [...] Treatment Pending Test Test Name Order Date Complete Blood Count Auto Diff Comprehensive [place]. Panel Fast IRON PROFILE 04/17/2025 Lipid Panel 04/17/2025 PSA,Total (Free>4and<10) 04/17/2025 Microalbumin, Random 04/17/2025 Hemoglobin A1c 04/17/2025 UA ClnCatch+Micro w/rflx Cult 04/17/2025 Next Appt Details Provider Name:Blayne Rivera ier, 04/24/2025 01:00:00 PM, [address] [place] [address], [address], [place], [place], [phone], Progress Notes * Stef MCMILLANDOB: [birth year] (64 yo M)Acc No.[id number]:04/17/2025 Progress Note Patient: Stef DAI Provider: Charlene Sampson MD :1960 A ge:64 Y S ex:Male Date:04/17/2025 Address:[address] [place] [address] [id number] Subjective: * Chief Complaints: * 1 . [...] * Treatment: 2. P rediabetes L AB: Complete Blood Count Auto Diff L AB: Comprehensive [place]. Panel Fast L AB: IRON PROFILE L AB: Lipid Panel L AB: PSA,Total (Free>4and<10) L AB: Microalbumin, Random L AB: Hemoglobin A1c L AB: UA ClnCatch+Micro w/rflx Cult 3. E ssential hypertension L AB: Complete Blood Count Auto Diff L AB: Comprehensive [place]. Panel Fast L AB: IRON PROFILE L AB: Lipid Panel L AB: PSA,Total (Free>4and<10) L AB: Microalbumin, Random L AB: Hemoglobin A1c L AB: UA ClnCatch+Micro w/rflx Cult 4. A cute systolic congestive heart failure L AB: Complete Blood Count Auto Diff L AB: Comprehensive [place]. Panel Fast L AB: IRON PROFILE L AB: Lipid Panel L AB: PSA,Total (Free>4and<10) L AB: Microalbumin, Random L AB: Hemoglobin A1c L AB: UA ClnCatch+Micro w/rflx Cult 5. I yue deficiency anemia, unspecified iron deficiency anemia type L AB: Complete Blood Count Auto Diff L AB: Comprehensive [place]. Panel Fast L AB: IRON PROFILE L AB: Lipid Panel L AB: PSA,Total (Free>4and<10) L AB: Microalbumin, Random L AB: Hemoglobin A1c L AB: UA ClnCatch+Micro w/rflx Cult 6. C hronic systolic (congestive) heart failure L AB: Complete Blood Count Auto Diff L AB: Comprehensive [place]. Panel Fast L AB: IRON PROFILE L AB: Lipid Panel L AB: PSA,Total (Free>4and<10) L AB: Microalbumin, Random L AB: Hemoglobin A1c L AB: UA ClnCatch+Micro w/rflx Cult * * The named appointment provid er may or may not be the originator of this progress note, and it is not deemed complete until electronically signed by the appointment provider. Sign off status: Pending * Provider: Charlene Sampson MD Date: 04/17/2025 Generated for Chester mccracken/Wally/Hannah on: 04/17/2025 07:05 AM EDT
[2025-04-17 10:15] LABS: Appearance Urine Clear; Color Urine Yellow; Glucose Urine UA Negative (Negative); Leukocyte Esterase Urine Negative (Negative); Nitrite Urine Negative (Negative); Specific Gravity - Urine 1.015 (1.005-1.025); Urine Blood Negative (Negative); Urine Ketones Negative (Negative); Urine Protein Negative (Neg-Trace)
[2025-04-17 10:22] LABS: MANUAL DIFF FLAG NO
[2025-04-17 10:26] LABS: Basophils Percent Auto 0.5 % (0-2); Eosinophils Absolute Auto 0.6 X10*3/uL (0.0-0.4); Eosinophils Percent Auto 7.6 % (0-4); Hematocrit 42.1 % (42.0-52.0); Hemoglobin 13.3 g/dl (14.0-18.0); Imm Gran Abs Auto 0.01 X10*3/uL (0.00-0.03); Imm Gran Pct Auto 0.1 % (0.0-0.4); Lymphocytes Absolute Auto 1.4 X10*3/uL (1.2-4.9); Lymphocytes Percent Auto 18.4 % (20-40); Mean Corpuscular HGB Conc 31.6 g/dl (31.0-36.0); Mean Corpuscular Hemoglobin 24.4 pg (27.0-33.0); Mean Corpuscular Volume 77.4 fL (80.0-98.0); Mean Platelet Volume 10.8 fL (9.4-12.4); Monocytes Absolute Auto 0.7 X10*3/uL (0.1-1.2); Monocytes Percent Auto 8.3 % (2-11); Neutrophils Absolute Auto 5.1 x10*3/uL (2.0-8.3); Neutrophils Percent Auto 65.1 % (45-73); Platelet Count 238 X10*3/uL (160-400); Red Blood Count 5.44 X10*6/uL (4.60-5.80); Red Cell Distribution Width 19.3 % (11.0-16.0); White Blood Count 7.8 X10*3/uL (4.8-10.8)
[2025-04-17 10:48] LABS: Estimated Average Glucose 123 mg/dL; Hemoglobin A1c % 5.9 % (<6.0)
[2025-04-17 10:54] LABS: Microalbum/Creatinine Ratio Ur 5.4 ug/mg cr (<30)
[2025-04-17 11:02] LABS: Alanine Aminotransferase 24 U/L (0-40); Albumin Level 3.9 g/dL (3.5-5.0); Alkaline Phosphatase 84 U/L (39-117); Anion Gap 10 (12-20); Aspartate Amino Transferase 31 U/L (5-37); Bilirubin Total 0.6 mg/dL (0.0-1.0); Blood Urea Nitrogen 16 mg/dL (9-16); Calcium 9.5 mg/dL (8.4-10.2); Carbon Dioxide 23 mmol/L (22-29); Chloride 109 mmol/L (96-108); Cholesterol 109 mg/dL (<200); Estimated Glomerular Filt Rate > 60; Glucose Fasting 113 mg/dL (60-99); HDL Cholesterol 43 mg/dL (>40); Iron 39 mcg/dL (45-160); LDL Cholesterol Calculated 47 mg/dL (<100); Percent Iron Saturation 11 % (15-50); Potassium 4.4 mmol/L (3.3-5.1); Sodium 138 mmol/L (135-145); Total Iron Binding Capacity 364 mcg/dL (228-428); Total Protein 6.1 g/dL (6.5-8.0); Triglycerides 99 mg/dL (<150); Unsaturated Iron Binding 325 ug/dL
[2025-04-17 11:14] LABS: PSA,Total (Free>4and<10) 5.27 ng/mL (0.00-4.00)
[2025-04-18 14:33] LABS: Free Prostate Spec Ag 0.5 ng/mL; Percent Free Prostate Spec Ag 11 % (calc) (>25); Prostate Specific Ag Total 4.7 ng/mL (< OR = 4.0)
== END 2025-04-17 07:02 | disposition home or self-care (01) ==
LOC: HO.HMGCLDS 07:01
PROVIDERS: PCP Internal Medicine; Visit Provider Internal Medicine
DX: Z00.00 Encounter for general adult medical examination without abnormal findings (principal); Z12.5 Encounter for screening for malignant neoplasm of prostate; R73.09 Other abnormal glucose; I11.0 Hypertensive heart disease with heart failure; I50.21 Acute systolic (congestive) heart failure; I50.22 Chronic systolic (congestive) heart failure; D50.9 Iron deficiency anemia, unspecified
CPT/HCPCS: 36415; 80053; 80061; 81003; 82043; 82570; 83036; 83540; 84153; 84154; 85025

== ENCOUNTER 2025-05-22 07:00 | Outpatient (REF) | payer MEDICARE, SELFPAY ==
[2025-05-22 11:03] LABS: PSA,Total (Free>4and<10) 6.32 ng/mL (0.00-4.00)
[2025-05-23 11:53] LABS: Free Prostate Spec Ag 0.6 ng/mL; Percent Free Prostate Spec Ag 11 % (calc) (>25)
== END 2025-05-22 07:01 | disposition home or self-care (01) ==
LOC: HO.HMGCLDS 07:00
PROVIDERS: PCP Internal Medicine; Visit Provider Internal Medicine
DX: R97.20 Elevated prostate specific antigen [PSA] (principal)
CPT/HCPCS: 36415; 84153; 84154

== ENCOUNTER 2025-07-04 06:20 | Outpatient (REF) | payer MEDICARE, SELFPAY ==
--- OUTSIDE RECORDS SUMMARY | 2024-10-21 10:00 | XMS_ITS ---
Author Organization Blayne Sampson MD Address [address] [place], [place] [phone] Care Team Providers Care Shortage Worker Name Role Phone Blayne Sampson Primary Care Provider [phone] Allergies No Known Allergies REASON FOR VISIT [...] Location Date Provider Diagnosis Blayne Sampson MD [address] [place] [phone] 10/21/2024 Blayne Sampson Essential hypertensi on I10 [...] regiment Next Appt Details Provider Name:Blayne sauceda, 10/06/2025 07:30:00 AM, [address] [place] [address], [address], [phone], Provider Name:Blayne sauceda, 10/13/2025 01:30:00 PM, [address] [place] [address], [address], [phone], Provider Name:Blayne sauceda, 04/20/2026 07:00:00 AM, [address] [place] [address], [address], [phone], Provider Name:Blayne sauceda, 04/26/2026 01:00:00 PM, [address] [place] [address], [address], [phone], Progress Notes * Stef MCMILLANDOB: [birth year] (64 yo M)Acc No.[id number]:10/21/2024 Progress Notes Patient: Stef Bello Provider: Charlene Sampson MD :1960 A ge:64 Y S ex:Male Date:10/21/2024 Address:[address] [place] [address] Jair grimaldo [id number] Subjective: * Chief Complaints: * 6 month [...] Date: 12/22/2023 Generated for Chester mccracken/Wally/Maryannitting on: 0 07/04/2025 06:23 AM EDT History and Physical Notes * [...]
--- OUTSIDE RECORDS SUMMARY | 2025-04-17 03:45 | XMS_ITS ---
Author Organization Blayne Sampson MD Address [address] [place], [place] [phone] Care Team Providers Care Retail Merchandising Coordinator Name Role Phone Camilla Blayne Primary Care Provider Results Component Value Reference Range Notes Complete Blood Count Auto Di ff Reviewed date:04/17/2025 05:31:56 PM Interpretation: Performing Lab:[facility], [address] [place] [phone] Notes/Report: White Blood Count 7.8 4.8-10.8 X10*3/uL [...] NRBC Abs Auto 0.000 0.0-0.012 X10*3/uL Comprehensive [place]. Panel Fa st Reviewed date:04/17/2025 05:34:54 PM Interpretation: Performing Lab:[facility], [address] [place] [phone] Notes/Report: Sodium 138 135-145 mmol/L Potassium 4.4 [...] PROFILE Reviewed date:04/17/2025 12:37:07 PM Interpretation: Performing Lab:[address] [phone] Notes/Report: Iron 39 45-160 mcg/dL Total Iron Binding Capacity 364 228-428 mcg/d L Percent Iron Saturation 11 15-50 % Unsaturated Iron Binding 325 Lipid Panel Reviewed date:04/17/2025 12:33:35 PM Interpretation: Performing Lab:[facility], [address] [place] [phone] Notes/Report: Triglycerides 99 <150 mg/dL Desirable Triglyceride: [...] Reviewed date:04/24/2025 02:30:31 PM Interpretation:MATTHEW 04/24/25 Performing Lab:[facility], [address] [place] [phone] Notes/Report: PSA,Total (Free>4and<10) 5.27 0.00-4.00 ng/mL PSA methodology: Steele Alinity i Chemiluminescent Microparticle Immunoassay (CMIA) Microalbumin, Random Reviewed date:04/17/2025 12:37:29 PM Interpretation: Performing Lab:[address] [phone] Notes/Report: Creatinine Urine 92.10 Microalbumin Urine 5.0 Microalbum/Creatinine Ratio Ur 5.4 <30 ug/mg cr Albumin/Creatinine Ratio Reference Ranges: Normal: < 30 ug/mg creatinine Microalbuminuria: 30 - 300 ug/mg creatinine Clinical Albuminuria: > 300 ug/mg creatinine Hemoglobin A1c Reviewed date:04/17/2025 12:26:22 PM Interpretation: Performing Lab:[facility], [address] [place] [phone] Notes/Report: Hemoglobin A1c % 5.9 <6.0 % [...] average glucose, using the formula of the A4H-Wsrjizy Average Glucose study (ADAG), Diabetes Care, Vol.31,#8, May. 2007 REASON FOR VISIT yearly fasting labs Encounters Encounter Location Date Provider Diagnosis Blayne Sampson MD [address] [place] [address] [address] [place], [place] [phone] 04/17/2025 Blayne Sampson Blood tests for routine [...] Next Appt Details Provider Name:Blayne Rivera ietomy, 10/06/2025 07:30:00 AM, [address], [address], [place], [place], [phone], Provider Name:Blayne Rivera ier, 10/13/2025 01:30:00 PM, [address], [address], [place], [phone], Provider Name:Blayne Rivera ier, 04/20/2026 07:00:00 AM, [address], [address], [place], [phone], Provider Name:Blayne Rivera ier, 04/26/2026 01:00:00 PM, [address], [address], [place], [id number], Progress Notes * Stef MCMILLANDOB: [birth year] (65 yo M)Acc No.[id number]:04/17/2025 Progress Note Patient: Stef DAI Provider: Charlene Sampson MD :1960 A ge:64 Y S ex:Male Date:04/17/2025 Address:[address] [place] [address] Jair grimaldo [id number] Subjective: * Chief Complaints: * 1 . [...] - 04/17/2025 07:08 AM) L AB: Comprehensive [place]. Panel Fast (Collection Date & Time - [...] - 04/17/2025 07:08 AM) L AB: Comprehensive [place]. Panel Fast (Collection Date & Time - [...] - 04/17/2025 07:08 AM) L AB: Comprehensive [place]. Panel Fast (Collection Date & Time - [...] - 04/17/2025 07:08 AM) L AB: Comprehensive [place]. Panel Fast (Collection Date & Time - [...] - 04/17/2025 07:08 AM) L AB: Comprehensive [place]. Panel Fast (Collection Date & Time - [...] MD Date: 0 04/17/2025 Generated for Chester mccracken/Wally/Nilasmitting on: 0 07/04/2025 06:22 AM EDT
--- OUTSIDE RECORDS SUMMARY | 2025-04-24 09:00 | XMS_ITS ---
Author Organization Blayne Sampson MD Address [address] [place], [place] [phone] Care Team Providers Care Vegetable Tier Name Role Phone Blayne Sampson Primary Care Provider [phone] Allergies No Known Allergies Results Component Value [...] Location Date Provider Diagnosis Blayne Sampson MD [address] [place] [address] [address] [place], [place] [phone] 04/24/2025 Blayne Sampson Annual physical exam Z00.00 [...] Reason: Provider Name:Blayne sauceda, 10/06/2025 07:30:00 AM, [address] [place] [address], [address], [phone], Provider Name:Blayne sauceda, 10/13/2025 01:30:00 PM, [address] [place] [address], [address], [phone], Provider Name:Blayne sauceda, 04/20/2026 07:00:00 AM, [address] [place] [address], [address], [phone], Provider Name:Blayne sauceda, 04/26/2026 01:00:00 PM, [address] [place] [address], [address], [phone], Progress Notes * Stef MCMILLANDOB: [birth year] (64 yo M)Acc No.[id number]:04/24/2025 Progress Notes Patient: Stef DAI Provider: Charlene Sampson MD :1960 A ge:64 Y S ex:Male Date:04/24/2025 Address:[address] [place] [address] Jair grimaldo [phone] Subjective: * Chief Complaints: * A NNUAL [...] yrs, heart disease. 4 sister(s) . . MOther-[place] 1 brother 60 [place], Denies mental health/substance abuse family history mother [...] mg/dL Urine Blood Negative Negative - Specific [place] - Urine 1.015 1.005-1.025 - Urine Protein Negative Neg-Trace - mg/dL Urine Ketones Negative Negative - mg/dL Nitrite Urine Negative Negative - Leukocyte Esterase Urine Negative Negative - L ab:Comprehensive [place]. Panel Fast (Order Date - 04/17/2025) (Collection [...] Sampson MD Date: 0 04/24/2025 Generated for [place] mccracken/Wally/Nilasmitting on: 0 07/04/2025 06:23 AM EDT History [...]
--- OUTSIDE RECORDS SUMMARY | 2025-05-22 04:00 | XMS_ITS ---
Author Organization Blayne Sampson MD Address [address] [place] [phone] Care Team Providers Care Medical Office Technology Instructor Name Role Phone Blayne Sampson Primary Care Provider REASON FOR VISIT PSA Encounters Encounter Location Date Provider Diagnosis Blayne Sampson MD 10 [facility] [address] [place] [phone] 05/22/2025 Blayne Sampson Plan Of Treatment Next Appt Details Provider Name:Blayne Rivera ier, 10/06/2025 07:30:00 AM, [address] [place] [address], [address] [place] [address], [phone], Provider Name:Blayne Rivera ier, 10/13/2025 01:30:00 PM, [address] [place] [address], Suite [facility], [place], [place], [phone], Provider Name:Blayne sauceda, 04/20/2026 07:00:00 AM, [address] [place] [address], [place] [address], [place], [place], [phone], Provider Name:Blayne sauceda, 04/26/2026 01:00:00 PM, [address], [address], [place], [phone], Progress Notes * Stef MCMILLANDOB: [birth year] (65 yo M)Acc No.[id number]:05/22/2025 Progress Note Patient: Stef DAI Provider: Charlene Sampson MD :1960 A ge:64 Y S ex:Male Date:05/22/2025 Address:[address] [place] [address] [id number] Subjective: * Chief Complaints: * 1 . [...] 0 05/22/2025 Generated for Chester mccracken/Wally/Maryannitting on: 0 07/04/2025 06:23 AM EDT
--- OUTSIDE RECORDS SUMMARY | 2025-06-06 10:15 | XMS_ITS ---
Author Organization Blayne Sampson MD Address [address] [place] [phone] Care Team Providers Care Glass Driller Name Role Phone Blayne Sampson Primary Care Provider [phone] Allergies No Known Allergies REASON FOR VISIT [...] Sampson MD [address] [place], [place] [phone] 06/06/2025 Blayne Sampson Elevated PSA R97.20 Assessments [...] to have this done closer to home. Future Test Test Name Order Date PSA,Total (Free>4and<10) 07/04/2025 Next Appt Details Provider Name:Blayne sauceda, 10/06/2025 07:30:00 AM, [address] [place] [address], Suite [facility], [place], [place], [phone], Provider Name:Blayne sauceda, 10/13/2025 01:30:00 PM, [address] [place] [address], [address] [place] [address], [phone], Provider Name:Blayne reyesr, 04/20/2026 07:00:00 AM, [address] [place] [address], [address] [place] [address], [phone], Provider Name:Blayne sauceda, 04/26/2026 01:00:00 PM, [address] [place] [address], [address] [place] [address], [phone], Progress Notes * Stef MCMILLANDOB: [birth year] (64 yo M)Acc No.[id number]:06/06/2025 Progress Notes Patient: Stef DAI Provider: Charlene Sampson MD :1960 A ge:64 Y S ex:Male Date:06/06/2025 Address:[address] [place] [address] [place]do [id number] Subjective: * Chief Complaints: * 1 month [...] 0 06/06/2025 Generated for Chester mccracken/Wally/Maryannitting on: 0 07/04/2025 06:22 AM EDT History and Physical Notes * [...]
--- OUTSIDE RECORDS SUMMARY | 2025-07-04 06:23 | XMS_ITS | Clinical Summary ---
Author Organization [facility] Facility Address [address] [place] [address] Care Team Providers Care Child Care Sitter Name Role Phone Blayne Sampson MD Primary Care Provider Social History Tobacco Use Types Packs/Day Years [...] Colonoscopy 2009 Colorectal Cancer Screening: Sigmoidoscopy 2009 Pneumococcal Vaccine: 50+ Ye ars (1 of 1 - PCV) 2010 Influenza Vaccine (#1) 2025 Hepatitis B Vaccine Aged Out No longe r eligible based on patient's age to complete this topic Insurance [facility] Care Teams Child Care Sitter Relationship Specialty Start Date End Date Blayne Sampson MD [address] [place] [address] [id number] [place], [place] PCP - General Internal Medicine 11/29/20
--- OUTSIDE RECORDS SUMMARY | 2025-07-04 06:23 | XMS_ITS | Patient Health Record ---
Author Organization Blayne Sampson MD Address [address] [place] [phone] Care Team Providers Care Men'S Golf Coach Name Role Phone Blayne Sampson Primary Care Provider Allergies No Known Allergies Results Component Value Reference Range Notes Occult Blood, Stool, Guaiac Reviewed date:04/24/2025 01:34:05 PM Interpretation:Negative Performing Lab: Notes/Report: Negative Occult Blood, Stool, Guaiac Neg Comprehensive Met. Panel Reviewed date:01/06/2025 12:19:16 PM Interpretation: Performing Lab:[facility], [address] [place] [phone] Notes/Report: Sodium 138 135-145 mmol/L Potassium 4.6 3.3-5.1 mmol/L Chloride 111 96-108 mmol/L Carbon Dioxide 20 22-29 mmol/L Anion Gap 12 12-20 Blood Urea Nitrogen 19 9-16 mg/dL Creatinine 0.75 0.5-1.4 mg/dL Estimated Glomerular Filt Rate > 60 Chronic Kidney Disease: Estimated GFR < 60 mL/min/1.73m2 Severe Kidney Disease: Estimated GFR < 15 mL/min/1.73m2 Glucose Random 115 60-115 mg/dL Calcium 9.6 8.4-10.2 mg/dL Bilirubin Total 0.5 0.0-1.0 mg/dL Aspartate Amino Transferase 28 5-37 U/L Alanine Aminotransferase 20 0-40 U/L Total Protein 6.6 6.5-8.0 g/dL Albumin Level 3.8 3.5-5.0 g/dL Alkaline Phosphatase 76 39-117 U/L Liver Panel Reviewed date:01/06/2025 12:19:01 PM Interpretation: Performing Lab:[facility], [address] [place] [phone] Notes/Report: Bilirubin Direct 0.2 0.0-0.5 mg/dL Lipid Panel Reviewed date:01/06/2025 12:18:51 PM Interpretation: Performing Lab:[facility], [address] [place] [phone] Notes/Report: Triglycerides 100 <150 mg/dL Desirable Triglyceride: less than 150 mg/dL Borderline High Triglyceride 150-199 mg/dL High Triglyceride: 200-499 mg/dL Very High Triglyceride: greater than or equal to 5OO mg/dL Cholesterol 106 <200 mg/dL Desirable Cholesterol: less than 200 mg/dL Borderline High Cholesterol: 200-239 mg/dL High Cholesterol: greater than 239 mg/dL LDL Cholesterol Calculated 45 <100 mg/dL Desirable LDL: less than 100 mg/dL Near Optimal/Above Optimal LDL: 110-129 mg/dL Borderline High LDL: 130-159 mg/dL High LDL: 160-189 mg/dL Very High LDL: greater than or equal to 190 mg/dL HDL Cholesterol 41 >40 mg/dL Desirable HDL: greater than 40 mg/dL Note: This HDL assay may give artificially low results in patients with liver disease. NT-proBNP Reviewed date:01/11/2025 03:23:01 PM Interpretation: Performing Lab:[facility], [address] [place] [phone] Notes/Report: NT-proBNP 254 <125 pg/mL THIS TEST WAS PERFORMED AT: [facility]/[address] [phone] DAMIAN VÁZQUEZ MD,PHD PSA Free and Total Reviewed date:04/24/2025 02:30:53 PM Interpretation:MATTHEW 04/24 Performing Lab:[facility], [address] [place] [phone] Notes/Report: Prostate Specific Ag Total 4.7 < OR = 4.0 ng/ mL Percent Free Prostate Spec Ag 11 >25 % (calc ) PSA(ng/mL) Free PSA(%) Estimated(x) Probability of Cancer(as%) 0-2.5 (*) Approx. 1 2.6-4.0(1) 0-27(2) 24(3) 4.1-10(4) 0-10 56 11-15 28 16-20 20 21-25 16 >or =26 8 >10(+) N/A >50 References:(1)Arnulfo et al.:Urology 60: 469-474 (2001) (2)Arnulfo et al.:J.Urol 168: 922-925 (2001) Free PSA(%) Sensitivity(%) Specificity(%) < or = 25 85 19 < or = 30 93 9 (3)Catalona et al.:SIMÓN 277: 6945-4157 (1996) (4)Catalona et al.:SIMÓN 279: 6235-8533 (1997) (x)These estimates vary with age, ethnicity, family history and MARILEE results. (*)The diagnostic usefulness of % Free PSA has not been established in patients with total PSA below 2.6 ng/mL (+)In men with PSA above 10 ng/mL, prostate cancer risk is determined by total PSA alone. The Total PSA value from this assay system is standardized against the equimolar PSA standard. The test result will be approximately 20% higher when compared to the WHO-standardized Total PSA (Siemens assay). Comparison of serial PSA results should be interpreted with this fact in mind. PSA was performed using the Kris [place] Immunoassay method. Values obtained from different assay methods cannot be used interchangeably. PSA levels, regardless of value, should not be interpreted as absolute evidence of the presence or absence of disease. THIS TEST WAS PERFORMED AT: [facility] [address] [place] [phone] CARTER BUCHANAN MD Free Prostate Spec Ag 0.5 UA CC w/rflx Micro + Cult Reviewed date:04/17/2025 05:27:15 PM Interpretation: Performing Lab:[facility], [address] [place] [phone] Notes/Report: Urine, Clean Catch Color Urine Yellow Appearance Urine Clear PH 6.0 5.0-9.0 Glucose Urine UA Negative Negative mg/dL Urine Blood Negative Negative Specific [place] - Urine 1.015 1.005-1.025 Urine Protein Negative Neg-Trace mg/dL Urine Ketones Negative Negative mg/dL Nitrite Urine Negative Negative Leukocyte Esterase Urine Negative Negative PSA,Total (Free>4and<10) Reviewed date:05/23/2025 08:22:12 AM Interpretation: Performing Lab:[facility], [address] [place] [phone] Notes/Report: PSA,Total (Free>4and<10) 6.32 0.00-4.00 ng/mL PSA methodology: Airpost.ioniINFOGRAPHIQS i Chemiluminescent Microparticle Immunoassay (CMIA) PSA Free and Total Reviewed date:05/23/2025 01:38:36 PM Interpretation: Performing Lab:[address] [phone] Notes/Report: Prostate Specific Ag Total 5.5 < OR = 4.0 ng/ mL Percent Free Prostate Spec Ag 11 >25 % (calc ) PSA(ng/mL) Free PSA(%) Estimated(x) Probability of Cancer(as%) 0-2.5 (*) Approx. 1 2.6-4.0(1) 0-27(2) 24(3) 4.1-10(4) 0-10 56 11-15 28 16-20 20 21-25 16 >or =26 8 >10(+) N/A >50 References:(1)Arnulfo et al.:Urology 60: 469-474 (2001) (2)Arnulfo et al.:J.Urol 168: 922-925 (2001) Free PSA(%) Sensitivity(%) Specificity(%) < or = 25 85 19 < or = 30 93 9 (3)Swathiona et al.:SIMÓN 277: 0089-8690 (1996) (4)Catalona et al.:SIMÓN 279: 8328-8871 (1997) (x)These estimates vary with age, ethnicity, family history and MARILEE results. (*)The diagnostic usefulness of % Free PSA has not been established in patients with total PSA below 2.6 ng/mL (+)In men with PSA above 10 ng/mL, prostate cancer risk is determined by total PSA alone. The Total PSA value from this assay system is standardized against the equimolar PSA standard. The test result will be approximately 20% higher when compared to the WHO-standardized Total PSA (Siemens assay). Comparison of serial PSA results should be interpreted with this fact in mind. PSA was performed using the Kris [place] Immunoassay method. Values obtained from different assay methods cannot be used interchangeably. PSA levels, regardless of value, should not be interpreted as absolute evidence of the presence or absence of disease. THIS TEST WAS PERFORMED AT: [facility] [address] [place] [phone] CARTER BUCHANAN MD Free Prostate Spec Ag 0.6 Reason For Referral Reason Elevated PSA Diagnosis 1 Elevated PSA (R97.20 ) Referral Organization Blayne Sampson MD Referring Provider First Name Blayne Referring Provider Last Name Camilla Referring Provider Speciality Internal M edicine Referred Provider Walker Marshall Referred Provider Specialty Urology General Notes Sue Baires 0 05/23/2025 08:21:40 AM >info faxedDequan Annette 05/29/2025 11:21:16 AM >was told patient is aware of appt Referral Priority Routine Referral Appointment Date 07/24/2025 Medications Medication SIG (Take, Route, Frequency, Duration) Notes Start Date End Date Status Aspirin 81 MG 1 tablet Orally Once a day Active Clopidogrel Bisulfate 75 MG 1 tablet Orally Once a day Active Atorvastatin Calcium 40 MG 1 tablet Orally Once a day Active Excedrin Extra Strength 250-250-65 MG 2 tablets as needed for pain Orally every 6 hrs Not-Taki ng Toprol XL 25 MG 1 tablet Orally Once a day Active Aldactone 25 MG 1 tablet Orally Active Furosemide 40 MG 1 tablet Orally once a day Active Entresto 49-51 MG 1 tablet Orally Twic e a day Active Immunizations Vaccine Route Administration Date Status Comme nts Flu Vaccine IM Intramuscular 08/01/2011 Administered Flu Vaccine IM Intramuscular 08/17/2012 Administered Flu Vaccine IM Intramuscular 11/21/2013 Administered Fluarix Quadrivalent IM Intramuscular 12/05/2014 Administe red Flu Vaccine IM Intramuscular 07/24/2015 Administered Fluarix Quadrivalent IM Intramuscular 08/05/2016 Administe red pt was given the vaccine at [facility]. Flu Vaccine Unknown 06/24/2017 Administered PPSV23 (Pnemovax) Unknown 12/24/2016 Administered had p neumo at [facility] TDaP IM Intramuscular 11/03/2017 Administered [place] was [place] the [place] [facility] Fluarix Quadrivalent Unknown 07/12/2018 Administered CV S Fluarix Quadrivalent IM Intramuscular 07/04/2019 Administe red pt was given the vaccine at [facility] in [place]. Prevnar 13 IM Intramuscular 09/27/2019 Administered Tetanus Unknown 11/03/2017 Administered Fluarix Quadrivalent Unknown 06/18/2020 Administered CV S Fluarix Quadrivalent Unknown 06/18/2020 Administered CV S SARS-COV-2 Moderna Unknown 03/27/2021 Administered SARS-COV-2 Moderna Unknown 02/26/2021 Administered Fluarix Quadrivalent Unknown 07/25/2021 Administered CV S Fluarix Quadrivalent Unknown 07/04/2022 Administered PPSV23 (Pnemovax) IM Intramuscular 01/15/2023 Administered Fluarix Quadrivalent IM Intramuscular 07/03/2023 Administe red Tetanus Unknown 11/03/2017 Pending Social History Tobacco Use: Social History Observation [...] Problem Status W/U Status Risk Notes Problem Diverticulitis of small intestine (61986559) Diverticulitis of small intestine (without mention of hemorrhage) (562.01) Active confirmed Problem 871410078 Chronic systolic (congestive) heart failure (I50.22) Active confirmed Problem 70294240 Essential hypert ension (I10) Active confirmed Problem 8618893 Prediabetes (R73.09) Active confirmed Problem 314749133 Acute systolic congestive heart failure (I50.21) Active confirmed Problem Cardiac pacemaker in situ (387019883) History of cardiac pacemaker (Z95.0) Active confirmed Problem 24687167 Iron deficiency anemia, unspecified iron deficiency anemia type (D50.9) Active confirmed Problem 490972929 Pure hypercholesterolemia (E78.00) Active confirmed Problem 664096857 BMI 35.0-35.9,ad ult (Z68.35) Active confirmed Problem 597950663 Eosinophilia, unspecified type (D72.10) Active confirmed Problem 67947664 Iron disorder (E83.10) Active confirme d Vital Signs Blood pressure diastolic 74 mm Hg 06/06/2025 Height 67.5 in 06/06/2025 Blood pressure systolic 118 mm Hg 06/06/2025 Weight 223 lbs 06/06/2025 BMI 34.41 kg/m2 06/06/2025 Encounters Encounter Location Date Provider Diagnosis Blayne Sampson MD [address] [place] [id number] 10/21/2024 Blayne Sampson Essential hypertensi on I10 ; Pure hypercholesterolemia E78.00 and Acute systolic congestive heart failure I50.21 Blayne Sampson MD [address] [place] [address] [phone] 04/24/2025 Blayne Sampson Annual physical exam Z00.00 ; Elevated PSA R97.20 ; Chronic systolic (congestive) heart failure I50.22 ; Iron deficiency anemia, unspecified iron deficiency anemia type D50.9 ; Pure hypercholesterolemia E78.00 ; Essential hypertension I10 ; Prediabetes R73.09 ; Colon cancer screening Z12.11 and Depression screening Z13.31 Blayne Sampson MD [address] [place] [phone] 06/06/2025 Blayne Sampson Elevated PSA R97.20 Assessments Encounter Date Diagnosis (ICD Code) Assessment Notes Treatment Notes Treatment Clinical Notes Section Notes 10/21/2024 Essential hypertensi on (ICD-10 - I10) doing well, will contnue current regiment 10/21/2024 Pure hypercholesterolemia (ICD-10 - E78.00) doing well with good ldl, will continue to monitor and will continuecurrent regiment 04/24/2025 Annual physical exam (ICD-10 - Z00.00) labs reviewed and discussed with patient 04/24/2025 Elevated PSA (ICD-10 - R97.20) pending future lab, lab order given to patient 06/06/2025 Elevated PSA (ICD-10 - R97.20) is seeing the urologist in end of june / order was given to patient wants to have this done closer to home. 10/21/2024 Acute systolic congestive heart failure (ICD-10 - I50.21) doing well. no shortness of breath, will contiue current regiment 04/24/2025 Chronic systolic (congestive) heart failure (ICD-10 [...] - Z13.31) negative screeen Plan Of Treatment Pending Test Test Name Order Date Electrocardiogram (EKG) 01/03/2016 Occult Blood, Stool, Guaiac 08/01/2011 Next Appt Details Provider Name:Blayne sauceda, 10/06/2025 07:30:00 AM, [address] [place] [address], [address], [phone], Provider Name:Blayne sauceda, 10/13/2025 01:30:00 PM, [address] [place] [address], [address], [phone], Provider Name:Blayne sauceda, 04/20/2026 07:00:00 AM, [address] [place] [address], [address], [phone], Provider Name:Blayne sauceda, 04/26/2026 01:00:00 PM, [address] [place] [address], [address], [phone], Insurance Providers Payer Name Payer Address Payer Phone Subscriber Number Group Number Insured Name Patient Relationship to Insured Coverage Start Date Coverage End Date [employer] MED[employer]ARE [employer]AGE [address] DA AMBROSE [id number] Stef Bustillo Self - patient is the insured MEDICARE [employer] [address] [place] [address] [id number] Stef Bustillo Self - patient is the insured Medical (General) History Medical History History ICD Code Colonoscopy 09/20/12 due in 10 years; colonoscopy booked for 09/11/[address] Prather: Colonoscopy 06/12/23 repeat 5-`0 yr pending path upper endo 09/20/12 with inf lammation duodenum; Upper Endo scheduled for 09/11/[address] Prather Current smoker F17.200 Current smoker
--- OUTSIDE RECORDS SUMMARY | 2025-07-04 06:24 | XMS_ITS | Clinical Summary ---
Author Organization [facility] Address [address] [facility] [address] [place] [phone] Phone Care Team Providers Care Gynecological Assistant Name Role Phone Blayne Sampson MD Primary Care Provider Allergies No known active allergies Medications furosemide (LASIX ORAL) Take by mouth. Active sacubitril/valsa rtan (ENTRESTO ORAL) Take by mouth. Active Social History Tobacco Use Types Packs/Day Years Used Date Smoking Tobacco: Former Smokeless Tobacco: Never Alcohol Use Standard Drinks/Week Comments Never 0 (1 standard drink = 0.6 oz pur e alcohol) Education Answer Date Recorded Are you interested in more education? Not on al e 02/20/2023 Are you concerned about learning? Not on file 02/20/2023 No 02/20/2023 No 02/20/2023 Digital Access Answer Date Recorded No 03/21/2023 No 03/21/2023 No 03/21/2023 Reliable internet access at home? Not on file 03/21/2023 Device with a working camera? Not on file Sex and Gender Information Value Date Recorded Sex Assigned at Not on file Legal Sex Male 2:48 PM EST Gender Identity Not on file Sexual Orientation Not on file Last Filed Vital Signs Vital Sign Reading Time Taken Comments Blood Pressure 82/54 02/23/2019 12:52 PM EDT Pulse 82 02/23/2019 12:52 PM EDT Temperature - - Respiratory Rate - - Oxygen Saturation 96% 02/23/2019 12: 52 PM EDT Inhaled Oxygen Concentration - - Weight 106.1 kg (233 lb 14.4 oz) 2018 12:52 PM EDT Height 172.7 cm (5' 7.99 ) 02/23/2019 1 2:52 PM EDT Body Mass Index 35.57 02/23/2019 12:52 PM EDT Plan of Treatment Health Maintenance Due Date Last Done Comments LIPID PANEL 1960 DEPRESSION SCREENING 1972 SMOKING Hx and SMOKELESS TOBACCO SCREENING 1973 HEPATITIS C SCREENING 1978 HIV ONE-TIME SCREENING (18-65 YEARS) 1978 COLOGUARD 2005 COLONOSCOPY 2005 COLORECTAL CANCER SCREENING 2005 FIT TEST 2005 FOBT 2005 SIGMOIDOSCOPY 2005 VIRTUAL COLONOSCOPY 2005 ZOSTER VACCINES (1 of 2) 2010 PNEUMOCOCCAL VACCINES (50+ years) (3 of 3 - PCV20 or PCV21) 09/27/2024 09/27/2019, 12/24/2016 INFLUENZA VACCINE (#1) 2025 , 07/04/2019, 07/02/2018, Additional history exists ABDOMINAL AORTIC ANEURYSM (AAA) SCREENING 2025 COVID-19 VACCINE (2 - season) 2025 02/26/2021 Adult Td,Tdap Booster 11/03/2027 11/03/2017 RSV VACCINE (1 - 1-dose 75+ series) 2035 HEPATITIS A VACCINES Aged Out No long er eligible based on patient's age to complete this topic HIB VACCINES Aged Out No longer eligi ble based on patient's age to complete this topic MENINGOCOCCAL VACCINES (ACWY) Aged Out No longer eligible based on patient's age to complete this topic MENINGOCOCCAL VACCINES (B) Aged Out N o longer eligible based on patient's age to complete this topic Medical Devices Not on file Insurance [facility] NSPG PCP ZANE MOSS CONNECTORCARE WELLSENSE NON NSPG PCP SILVER CLARITY CONNECTORCARE WELLSENSE NON NSPG PCP SILVER CLARITY CONNECTORCARE WELLSENSE NON NSPG PCP SILVER CLARITY CONNECTORCARE WELLSENSE NON NSPG PCP SILVER CLARITY CONNECTORCARE WELLSENSE NON NSPG PCP SILVER CLARITY CONNECTORCARE WELLSENSE NON NSPG PCP SILVER CLARITY CONNECTORCARE WELLSENSE NON NSPG PCP ZANE CLARITY CONNECTORCARE WELLSENSE NON NSPG PCP ZANE CLARITY CONNECTORCARE Care Teams Gynecological Assistant Relationship Specialty Start Date End Date Blayne Sampson MD [address] [place] [address] [place] [address] PCP - General 11/30/18 Additional Source Comments The information contained in this document represents components of the legal health record. It is not the complete legal health record.[facility]
--- OUTSIDE RECORDS SUMMARY | 2025-07-04 06:24 | XMS_ITS | Patient Health Record ---
Author Organization [facility] Address [address] [place] [phone] Care Team Providers Care Manufacturing Management Associate Name Role Phone Camilla AGUILAR, Blayne Primary [...] Problem Status W/U Status Risk Notes Problem [id number] Iron deficiency anemia, unspecified iron deficiency anemia type (D50.9) Active confirmed Plan Of Treatment Future Test Test Name Order Date UPPER GI ENDOSCOPY 07/19/2020 COLONOSCOPY 07/19/2020 Insurance Providers Payer Name Payer Address Payer Phone Subscriber Number Group Number Insured Name Patient Relationship to Insured Coverage Start Date Coverage End Date [facility] [place] [employer] CLAIMS [address] [place] [address] [phone] [id number] FIORELLA BURROWS Self - patient is the insured MED[place] [address] [place] [address] [phone] [id number] FIORELLA BURROWS Self - patient is the insured Medical (General) History Medical History History ICD Code coronary artery disease with history of CA and stent placement hypertension diverticulitis elevated cholesterol ischemic cardiomyopathy Surgical History Surgery Date(Month/Year) perforated diverticulitis wi th colostomy, sigmoid resection and Abdulaziz pouch, status post reversal. 2007 shoulder surgery 1988 stent/defibrillator placement, [facility] cardiology
[2025-07-04 10:49] LABS: PSA,Total (Free>4and<10) 6.39 ng/mL (0.00-4.00)
[2025-07-05 11:38] LABS: Free Prostate Spec Ag 0.5 ng/mL; Percent Free Prostate Spec Ag 9 % (calc) (>25)
== END 2025-07-04 06:21 | disposition home or self-care (01) ==
LOC: HO.HMGCLDS 06:20
PROVIDERS: PCP Internal Medicine; Visit Provider Internal Medicine
DX: Z12.5 Encounter for screening for malignant neoplasm of prostate (principal); R97.20 Elevated prostate specific antigen [PSA]
CPT/HCPCS: 36415; 84153; 84154

== ENCOUNTER 2025-07-24 14:59 | Outpatient (AMB) | payer MEDICARE, SELFPAY ==
--- OUTSIDE RECORDS SUMMARY | 2024-10-21 10:00 | XMS_ITS ---
Author Organization Blayne Sampson MD Address [address] [place], [place] [phone] Care Team Providers Care Dairy Machine Operator Farmworker Name Role Phone Blayne Sampson Primary Care [...] Location Date Provider Diagnosis Blayne Sampson MD [address] [place] [phone] 10/21/2024 Blayne Sampson Essential hypertensi on I10 [...] Details Provider Name:Blayne sauceda, 10/06/2025 07:30:00 AM, [address] [place] [address], [address], [phone], Provider Name:Blayne sauceda, 10/13/2025 01:30:00 PM, [address] [place] [address], [address], [phone], Provider Name:Blayne sauceda, 04/20/2026 07:00:00 AM, [address] [place] [address], [address], [phone], Provider Name:Blayne sauceda, 04/26/2026 01:00:00 PM, [address] [place] [address], [address], [phone], Progress Notes * Stef MCMILLANDOB: [birth year] (64 yo M)Acc No.[id number]:10/21/2024 Progress Notes Patient: Stef Bello Provider: Charlene Sampson MD :1960 A ge:64 Y S ex:Male Date:10/21/2024 Address:[address] [place] [address] Jair grimaldo [id number] Subjective: * Chief Complaints: * 6 month [...] 12/22/2023 Generated for Chester mccracken/Wally/Maryannitting on: 0 07/24/2025 05:02 PM EDT History and Physical Notes * HPI [...]
--- OUTSIDE RECORDS SUMMARY | 2025-04-17 03:45 | XMS_ITS ---
Author Organization Blayne Sampson MD Address [address] [place], [place] [phone] Care Team Providers Care Administrative Officer Name Role Phone Camilla Blayne Primary Care Provider [phone] Results Component Value Reference Range Notes Complete Blood Count Auto Di ff Reviewed date:04/17/2025 05:31:56 PM Interpretation: Performing Lab:[facility], [address] [place] [phone] Notes/Report: White Blood Count 7.8 4.8-10.8 X10*3/uL [...] NRBC Abs Auto 0.000 0.0-0.012 X10*3/uL Comprehensive [place]. Panel Fa st Reviewed date:04/17/2025 05:34:54 PM Interpretation: Performing Lab:[facility], [address] [place] [phone] Notes/Report: Sodium 138 135-145 mmol/L Potassium 4.4 [...] PROFILE Reviewed date:04/17/2025 12:37:07 PM Interpretation: Performing Lab:[address] [phone] Notes/Report: Iron 39 45-160 mcg/dL Total Iron Binding Capacity 364 228-428 mcg/d L Percent Iron Saturation 11 15-50 % Unsaturated Iron Binding 325 Lipid Panel Reviewed date:04/17/2025 12:33:35 PM Interpretation: Performing Lab:[facility], [address] [place] [phone] Notes/Report: Triglycerides 99 <150 mg/dL Desirable Triglyceride: [...] Reviewed date:04/24/2025 02:30:31 PM Interpretation:MATTHEW 04/24/25 Performing Lab:[facility], [address] [place] [phone] Notes/Report: PSA,Total (Free>4and<10) 5.27 0.00-4.00 ng/mL PSA methodology: Steele Alinity i Chemiluminescent Microparticle Immunoassay (CMIA) Microalbumin, Random Reviewed date:04/17/2025 12:37:29 PM Interpretation: Performing Lab:[address] [phone] Notes/Report: Creatinine Urine 92.10 Microalbumin Urine 5.0 Microalbum/Creatinine Ratio Ur 5.4 <30 ug/mg cr Albumin/Creatinine Ratio Reference Ranges: Normal: < 30 ug/mg creatinine Microalbuminuria: 30 - 300 ug/mg creatinine Clinical Albuminuria: > 300 ug/mg creatinine Hemoglobin A1c Reviewed date:04/17/2025 12:26:22 PM Interpretation: Performing Lab:[facility], [address] [place] [phone] Notes/Report: Hemoglobin A1c % 5.9 <6.0 % [...] average glucose, using the formula of the M9K-Smvvpik Average Glucose study (ADAG), Diabetes Care, Vol.31,#8, May. 2007 REASON FOR VISIT yearly fasting labs Encounters Encounter Location Date Provider Diagnosis Blayne Sampson MD [address] [place] [address] [address] [place], [place] [phone] 04/17/2025 Blayne Sampson Blood tests for routine [...] 07:30:00 AM, [address], [address], [place], [place], [phone], Provider Name:Blayne Rivera ier, 10/13/2025 01:30:00 PM, [address], [address], [place], [id number], Provider Name:Blayne Rivera ier, 04/20/2026 07:00:00 AM, [address], [address], [place], [id number], Provider Name:Blayne Rivera ier, 04/26/2026 01:00:00 PM, [address], [address], [place], [id number], Progress Notes * Stef MCMILLANDOB: [birth year] (65 yo M)Acc No.[id number]:04/17/2025 Progress Note Patient: Stef DAI Provider: Charlene Sampson MD :1960 A ge:64 Y S ex:Male Date:04/17/2025 Address:[address] [place] [address] Jair grimaldo [id number] Subjective: * Chief Complaints: * 1 . [...] - 04/17/2025 07:08 AM) L AB: Comprehensive [place]. Panel Fast (Collection Date & Time - [...] - 04/17/2025 07:08 AM) L AB: Comprehensive [place]. Panel Fast (Collection Date & Time - [...] - 04/17/2025 07:08 AM) L AB: Comprehensive [place]. Panel Fast (Collection Date & Time - [...] - 04/17/2025 07:08 AM) L AB: Comprehensive [place]. Panel Fast (Collection Date & Time - [...] - 04/17/2025 07:08 AM) L AB: Comprehensive [place]. Panel Fast (Collection Date & Time - [...] 0 04/17/2025 Generated for Chester mccracken/Wally/Maryannitting on: 0 07/24/2025 05:02 PM EDT
--- OUTSIDE RECORDS SUMMARY | 2025-04-24 09:00 | XMS_ITS ---
Author Organization Blayne Sampson MD Address [address] [place], [place] [phone] Care Team Providers Care Billet Examiner Name Role Phone Blayne Sampson Primary Care [...] Location Date Provider Diagnosis Blayne Sampson MD [address] [place] [address] [address] [place], [place] [phone] 04/24/2025 Blayne Sampson Annual physical exam Z00.00 [...] Reason: Provider Name:Blayne sauceda, 10/06/2025 07:30:00 AM, [address] [place] [address], [address], [phone], Provider Name:Blayne sauceda, 10/13/2025 01:30:00 PM, [address] [place] [address], [address], [phone], Provider Name:Blayne sauceda, 04/20/2026 07:00:00 AM, [address] [place] [address], [address], [phone], Provider Name:Blayne sauceda, 04/26/2026 01:00:00 PM, [address] [place] [address], [address], [phone], Progress Notes * Stef MCMILLANDOB: [birth year] (64 yo M)Acc No.[id number]:04/24/2025 Progress Notes Patient: Stef DAI Provider: Charlene Sampson MD :1960 A ge:64 Y S ex:Male Date:04/24/2025 Address:[address] [place] [address] [place]air grimaldo [phone] Subjective: * Chief Complaints: * A NNUAL [...] yrs, heart disease. 4 sister(s) . . MOther-[place] 1 brother 60 [place], Denies mental [...] mg/dL Urine Blood Negative Negative - Specific [place] - Urine 1.015 1.005-1.025 - Urine Protein Negative Neg-Trace - mg/dL Urine Ketones Negative Negative - mg/dL Nitrite Urine Negative Negative - Leukocyte Esterase Urine Negative Negative - L ab:Comprehensive [place]. Panel Fast (Order Date - 04/17/2025) (Collection [...] 0 04/24/2025 Generated for [place] mccracken/Wally/Nilasmitting on: 0 07/24/2025 05:03 PM EDT History and Physical Notes * [...]
--- OUTSIDE RECORDS SUMMARY | 2025-05-22 04:00 | XMS_ITS ---
Author Organization Blayne Sampson MD Address [address] [place] [phone] Care Team Providers Care Handyperson Name Role Phone Blayne Sampson Primary Care Provider REASON FOR VISIT PSA Encounters Encounter Location Date Provider Diagnosis Blayne Sampson MD 10 [facility] [address] [place] [phone] 05/22/2025 Blayne Sampson Plan Of Treatment Next Appt Details Provider Name:Blayne Rivera ier, 10/06/2025 07:30:00 AM, [address] [place] [address], [address] [place] [address], [phone], Provider Name:Blayne Rivera ier, 10/13/2025 01:30:00 PM, [address] [place] [address], Suite [facility], [place], [place], [phone], Provider Name:Blayne sauceda, 04/20/2026 07:00:00 AM, [address] [place] [address], [place] [address], [place], [place], [phone], Provider Name:Blayne sauceda, 04/26/2026 01:00:00 PM, [address], [address], [place], [phone], Progress Notes * Stef MCMILLANDOB: [birth year] (65 yo M)Acc No.[id number]:05/22/2025 Progress Note Patient: Stef DAI Provider: Charlene Sampson MD :1960 A ge:64 Y S ex:Male Date:05/22/2025 Address:[address] [place] [address] [id number] Subjective: * Chief Complaints: * 1 . PSA. * Medical History: Objective: * Vitals: Assessment: Plan: * Treatment: * * The named appointment provid er may or may not be the originator of this progress note, and it is not deemed complete until electronically signed by the appointment provider. Sign off status: Pending * Provider: Charlene Sampson MD Date: 05/22/2025 Generated for Chester mccracken/Wally/Maryannitting on: 0 07/24/2025 05:03 PM EDT
--- OUTSIDE RECORDS SUMMARY | 2025-06-06 10:15 | XMS_ITS ---
Author Organization Blayne Sampson MD Address [address] [place] [phone] Care Team Providers Care Grill Attendant Name Role Phone Blayne Sampson Primary [...] Sampson MD [address] [place], [place] [phone] 06/06/2025 Blayne Sampson Elevated PSA R97.20 Assessments [...] home. Next Appt Details Provider Name:Blayne sauceda, 10/06/2025 07:30:00 AM, [address] [place] [address], Suite [facility], [place], [place], [phone], Provider Name:Blayne sauceda, 10/13/2025 01:30:00 PM, [address] [place] [address], [address] [place] [address], [phone], Provider Name:Blayne sauceda, 04/20/2026 07:00:00 AM, [address] [place] [address], Suite [facility], [place], [place], [phone], Provider Name:Blayne sauceda, 04/26/2026 01:00:00 PM, [address] [place] [address], Suite [facility], [place], [place], [phone], Progress Notes * Stef MCMILLANDOB: [birth year] (64 yo M)Acc No.[id number]:06/06/2025 Progress Notes Patient: Stef DAI Provider: Charlene Sampson MD :1960 A ge:64 Y S ex:Male Date:06/06/2025 Address:[address] [place] [address] [id number] Subjective: * Chief Complaints: * 1 month * HPI: S ymptom(s): patient is a 64 yo male here for one month follow up visit. * ROS: G eneral/Constitutional: Denies C hills. D enies F atjuan carlos. D enies F ever. D enies H [...] MD Date: 0 06/06/2025 Generated for Chester mccracken/Wally/Nilasmitting on: 0 07/24/2025 05:02 PM EDT History [...]
--- NOTE | 2025-07-24 15:06 | MHC.OFFVIS ---
Intake Visit Reasons: elevated PSA Intake Note: New patient presents today for initial visit for elevated PSA 07/04 Total PSA:6.39 Urology Medication:None Blood Thinner:Aspirin,Clopidogrel Antibiotic Allergies:None Allergies No Known Allergies Allergy (Verified 07/24/25 15:07) Medication List - Last Reconciled 07/24/25 by Walker Nash MD aspirin 1 tab PO DAILY atorvastatin 1 tab PO DAILY clopidogrel 1 tab PO DAILY ferrous sulfate (Iron (ferrous sulfate)) 325 mg PO BID furosemide 1 tab PO BID hydrocortisone 2.5% (Proctosol HC) 1 appl NC BID metoprolol succinate ER 1 tab PO BID sacubitril-valsartan 49-51 mg (Entresto) 1 tab PO BID spironolactone 1 tab PO DAILY HPI Comments Details: Stef presents as a new patient evaluation for elevated PSA. Most recent PSA 07/04/2025 is 6.39 ng/mL. The patient is on Plavix for history of heart conditions. History of Present Illness The patient is a 65-year-old male presenting with elevated Prostate-Specific Antigen (PSA) levels. The most recent PSA level was 6.39 ng/mL, which is above the normal range of 0 to 4 ng/mL. The elevation in PSA could be due to benign prostatic hyperplasia or prostate cancer, and a biopsy is recommended to determine the cause. The patient has a history of heart failure diagnosed in 2018, for which he has two stents placed. He is currently on clopidogrel (Plavix) for his heart condition and uses aspirin occasionally for headaches. Results - PSA level: 6.39 ng/mL Plan 1. Elevated Prostate-Specific Antigen (Psa) - Recommend prostate biopsy to determine the cause of elevated PSA. - Coordinate with molybdenum steamer operator to manage blood thinners prior to biopsy. - Administer antibiotics two days before the procedure to reduce infection risk. 2.-Transrectal Ultrasound guided biopsy of the prostate. Discussed risks to include but not limited to pain, blood in stool, urine and semen, septicemia, need to repeat biopsy. [facility] Medical History COVID-19 vaccine series completed Iron deficiency anemia Pre-diabetes Elevated cholesterol HTN (hypertension) CHF (congestive heart failure) Myocardial infarction CAD (coronary artery disease) Ischemic cardiomyopathy Diverticulitis GERD (gastroesophageal reflux disease) Surgical History History of cardiac defibrillator placement Hx of heart artery stent Hx of exploratory laparotomy History of colostomy reversal History of incisional hernia repair History of laparotomy History of esophagogastroduodenoscopy (EGD) H/O colonoscopy Family History Father Lung cancer Social History Patient Tobacco Use Status: Former Tobacco user Tobacco use type: Cigarette service: No Current occupational status: unemployed Review of Systems Const All systems reviewed & are unremarkable except as noted in HPI and below Reports no additional complaints Eyes Reports no additional complaints ENT Reports no additional complaints Card Reports no additional complaints Resp Reports no additional complaints GI Reports no additional complaints Reports as per HPI Musc Reports no additional complaints Skin/Breast Reports system reviewed and no additional complaints, except as documented Neuro Reports no additional complaints Psych Reports no additional complaints Endo Reports no additional complaints Vic/Lymph Reports no additional complaints Aller/Immun Reports no additional complaints Physical Exam Const General: healthy appearing, no acute distress and well developed Orientation/consciousness: patient oriented x3 HEENT Head: Yes normocephalic and Yes atraumatic Eyes Conjunctivae: conjunctivae normal Neck Neck: Yes normal visual inspection Chest Chest palpation & inspection: normal inspection of the chest Resp Effort & Inspection: normal respiratory effort GI Inspection: Yes normal to inspection Neuro General: patient oriented x3 Psych Appearance: grossly normal Affect: normal affect Assessment & Plan Assessment & Plan (1) BPH with elevated PSA: Code(s): N40.0 - Benign prostatic hyperplasia without lower urinary tract symptoms; R97.20 - Elevated prostate specific antigen [PSA] Category: Medical Plan Plan 1. Elevated Prostate-Specific Antigen (Psa) - Recommend prostate biopsy to determine the cause of elevated PSA. - Coordinate with molybdenum steamer operator to manage blood thinners prior to biopsy. - Administer antibiotics two days before the procedure to reduce infection risk. Orders: Orders AMB Urinalysis Automated Today Z13.9 - Encounter for screening, unspecified Patient Instructions: The patient had an opportunity to ask questions regarding treatment plan. The patient expressed understanding and agreement with the above treatment plan. The patient is aware they should contact our office by phone for worsening of their current condition or the appearance of new symptoms. Compliance is encouraged with any medications and followup testing that is ordered. It is a privilege to be allowed the opportunity to participate in the urologic care of your patient. If you have any questions or concerns regarding treatment for the above conditions please do not hesitate to contact me. The office telephone contact is [phone]. This note is constructed in part using voice recognition software. While every effort has been made to ensure accuracy vmware systems administrator errors may have been included. Yours sincerely, Walker Nash MD Scribe Plan - Not visible on output: Patient was informed and verbally consented to the use of an ambient scribe for clinic note documentation during this visit. Coding Level of Care Code New Pt Level 4 (15467) Diagnoses BPH with elevated PSA N40.0; R97.20
--- OUTSIDE RECORDS SUMMARY | 2025-07-24 17:03 | XMS_ITS | Clinical Summary ---
Author Organization [facility] Address [address] [place] [id number] Phone Care Team Providers Care Motor Transport Inspector Name Role Phone Blayne Sampson MD Primary [...] topic Medical Devices Not on file Insurance [facility] NSPG PCP ZANE MOSS CONNECTORCARE WELLSENSE [...] NSPG PCP ZANE [employer] [employer] Care Teams Motor Transport Inspector Relationship Specialty Start Date End Date Blayne Sampson MD [address] [place] [address] [place] [address] PCP - General 11/30/18 Additional Source Comments The information contained in this document represents components of the legal health record. It is not the complete legal health record.[facility]
--- OUTSIDE RECORDS SUMMARY | 2025-07-24 17:03 | XMS_ITS | Patient Health Record ---
Author Organization [facility] Address [address] [place] [phone] Care Team Providers Care Superintendent Geophysical Laboratory Name Role Phone Camilla AGUILAR, Blayne Primary [...] Problem Status W/U Status Risk Notes Problem [id number] Iron deficiency anemia, unspecified iron deficiency anemia type (D50.9) Active confirmed Plan Of Treatment Future Test Test Name Order Date UPPER GI ENDOSCOPY 07/19/2020 COLONOSCOPY 07/19/2020 Insurance Providers Payer Name Payer Address Payer Phone Subscriber Number Group Number Insured Name Patient Relationship to Insured Coverage Start Date Coverage End Date [facility] BLUE BCBS PROF[employer] L CLAIMS [address] [place] [address] [phone] [id number] FIORELLA BURROWS Self - patient is the insured MED[place] [address] [place] [address] [phone] [id number] FIORELLA BURROWS Self - patient is the insured Medical (General) History Medical History History ICD Code coronary artery disease with history of ND and stent placement hypertension diverticulitis elevated cholesterol ischemic cardiomyopathy Surgical History Surgery Date(Month/Year) perforated diverticulitis wi th colostomy, sigmoid resection and Abdulaziz pouch, status post reversal. 2007 shoulder surgery 1988 stent/defibrillator placement, [facility] cardiology
--- OUTSIDE RECORDS SUMMARY | 2025-07-24 17:03 | XMS_ITS | Clinical Summary ---
Author Organization [facility] Address [address] [place] [address] Care Team Providers Care Hand Grinder Name Role Phone Blayne Sampson MD Primary [...] patient's age to complete this topic Insurance [facility] Care Teams Hand Grinder Relationship Specialty Start Date End Date Blayne Sampson MD [address] [place] [address] [address] [place], [place] PCP - General Internal Medicine 11/29/20
--- OUTSIDE RECORDS SUMMARY | 2025-07-24 17:03 | XMS_ITS | Patient Health Record ---
Author Organization Blayne Sampson MD Address [address] [place] [phone] Care Team Providers Care Desktop Support Associate Name Role Phone Blayne Sampson Primary Care Provider Allergies No Known Allergies Results Component Value Reference Range Notes Occult Blood, Stool, Guaiac Reviewed date:04/24/2025 01:34:05 PM Interpretation:Negative Performing Lab: Notes/Report: Negative Occult Blood, Stool, Guaiac Neg Comprehensive Met. Panel Reviewed date:01/06/2025 12:19:16 PM Interpretation: Performing Lab:[facility], [address] [place] [phone] Notes/Report: Sodium 138 135-145 mmol/L Potassium 4.6 [...] Panel Reviewed date:01/06/2025 12:19:01 PM Interpretation: Performing Lab:[facility], [address] [place] [phone] Notes/Report: Bilirubin Direct 0.2 0.0-0.5 mg/dL Lipid Panel Reviewed date:01/06/2025 12:18:51 PM Interpretation: Performing Lab:[facility], [address] [place] [phone] Notes/Report: Triglycerides 100 <150 mg/dL Desirable Triglyceride: [...] NT-proBNP Reviewed date:01/11/2025 03:23:01 PM Interpretation: Performing Lab:[facility], [address] [place] [phone] Notes/Report: NT-proBNP 254 <125 pg/mL THIS TEST WAS PERFORMED AT: [facility]/[address] [address] DAMIAN VÁZQUEZ MD,PHD PSA Free and Total Reviewed date:04/24/2025 02:30:53 PM Interpretation:MATTHEW 04/24 Performing Lab:[facility], [address] [place] [phone] Notes/Report: Prostate Specific Ag Total 4.7 < [...] 30 93 9 (3)Catalona et al.:SIMÓN 277: 9781-2298 (1996) (4)Catalona et al.:SIMÓN 279: 3654-9762 (1997) (x)These estimates vary with age, ethnicity, [...] of disease. THIS TEST WAS PERFORMED AT: [facility] [address] [place] [phone] CARTER BUCHANAN MD Free Prostate Spec Ag 0.5 UA CC w/rflx Micro + Cult Reviewed date:04/17/2025 05:27:15 PM Interpretation: Performing Lab:[facility], [address] [place] [phone] Notes/Report: Urine, Clean Catch Color Urine Yellow Appearance Urine Clear PH 6.0 5.0-9.0 Glucose Urine UA Negative Negative mg/dL Urine Blood Negative Negative Specific Dawson - Urine 1.015 1.005-1.025 Urine Protein Negative Neg-Trace mg/dL Urine Ketones Negative Negative mg/dL Nitrite Urine Negative Negative Leukocyte Esterase Urine Negative Negative PSA,Total (Free>4and<10) Reviewed date:05/23/2025 08:22:12 AM Interpretation: Performing Lab:[facility], [address] [place] [phone] Notes/Report: PSA,Total (Free>4and<10) 6.32 0.00-4.00 ng/mL PSA methodology: [email or web address] i Chemiluminescent Microparticle Immunoassay (CMIA) PSA Free and Total Reviewed date:05/23/2025 01:38:36 PM Interpretation: Performing Lab:[address] [address] Notes/Report: Prostate Specific Ag Total 5.5 < [...] 30 93 9 (3)Swathiona et al.:SIMÓN 277: 2893-3290 (1996) (4)Catalona et al.:SIMÓN 279: 3617-9909 (1997) (x)These estimates vary with age, ethnicity, [...] mind. PSA was performed using the [place] Immunoassay method. Values obtained from different assay methods cannot be used interchangeably. PSA levels, regardless of value, should not be interpreted as absolute evidence of the presence or absence of disease. THIS TEST WAS PERFORMED AT: [facility] [address] [phone] CARTER BUCHANAN MD Free Prostate Spec Ag 0.6 PSA,Total (Free>4and<10) Reviewed date:07/04/2025 01:16:48 PM Interpretation: Performing Lab:[facility], [address] [place] [phone] Notes/Report: PSA,Total (Free>4and<10) 6.39 0.00-4.00 ng/mL PSA methodology: Steele Al[employer] i Chemiluminescent Microparticle Immunoassay (CMIA) PSA Free and Total Reviewed date:07/06/2025 12:58:39 PM Interpretation: Performing Lab:[facility], [address] [place] [phone] Notes/Report: Prostate Specific Ag Total 5.5 < OR = 4.0 ng/ mL Percent Free Prostate Spec Ag 9 >25 % (calc ) PSA(ng/mL) Free PSA(%) Estimated(x) Probability of Cancer(as%) 0-2.5 (*) Approx. 1 2.6-4.0(1) 0-27(2) 24(3) 4.1-10(4) 0-10 56 11-15 28 16-20 20 21-25 16 >or =26 8 >10(+) N/A >50 References:(1)Arnulfo et al.:Urology 60: 469-474 (2002) (2)Arnulfo et al.:J.Urol 168: 922-925 (2002) Free PSA(%) Sensitivity(%) Specificity(%) < or = 25 85 19 < or = 30 93 9 (3)Catalona et al.:SIMÓN 277: 2498-2612 (1996) (4)Catalona et al.:SIMÓN 279: 6903-8617 (1997) (x)These estimates vary with age, ethnicity, [...] of disease. THIS TEST WAS PERFORMED AT: [facility] [address] [place] [phone] CARTER BUCHANAN MD Free Prostate Spec Ag 0.5 Reason For Referral Reason Elevated PSA Diagnosis 1 Elevated PSA (R97.20 ) Referral Organization Blayne Sampson MD Referring Provider First Name Blayne Referring Provider Last Name Camilla Referring Provider Speciality Internal M edicine Referred Provider Walker Marshall Referred Provider Specialty Urology General Notes Sue Baires 0 05/23/2025 08:21:40 AM >info faxed, Sue Baires 05/29/2025 11:21:16 AM >was told patient is [...] red pt was given the vaccine at [facility]. Flu Vaccine Unknown 06/24/2017 Administered PPSV23 (Pnemovax) Unknown 12/24/2016 Administered had p neumo at [facility] TDaP IM Intramuscular 11/03/2017 Administered pt was given the vaccine at [facility]) Fluarix Quadrivalent Unknown 07/12/2018 Administered CV S Fluarix Quadrivalent IM Intramuscular 07/04/2019 Administe red pt was given the vaccine at [facility] in [place]. Prevnar 13 IM Intramuscular 09/27/2019 Administered Tetanus [...] Risk Notes Problem Diverticulitis of small intestine (08829926) Diverticulitis of small intestine (without mention of hemorrhage) (562.01) Active confirmed Problem 574298374 Chronic systolic (congestive) heart failure (I50.22) Active confirmed Problem 12774919 Essential hypert ension (I10) Active confirmed Problem 6818058 Prediabetes (R73.09) Active confirmed Problem 337794886 Acute systolic congestive heart failure (I50.21) Active confirmed Problem Cardiac pacemaker in situ (404605232) History of cardiac pacemaker (Z95.0) Active confirmed Problem 33563355 Iron deficiency anemia, unspecified iron deficiency anemia type (D50.9) Active confirmed Problem 133242197 Pure hypercholesterolemia (E78.00) Active confirmed Problem 172164147 BMI 35.0-35.9,ad ult (Z68.35) Active confirmed Problem 166328935 Eosinophilia, unspecified type (D72.10) Active confirmed Problem 15956812 Iron disorder (E83.10) Active confirme d Vital Signs Blood pressure diastolic 74 mm Hg 06/06/2025 Height 67.5 in 06/06/2025 Blood pressure systolic 118 mm Hg 06/06/2025 Weight 223 lbs 06/06/2025 BMI 34.41 kg/m2 06/06/2025 Encounters Encounter Location Date Provider Diagnosis Blayne Sampson MD [address] [place] [address] [address] [place] [id number] 10/21/2024 Blayne Sampson Essential hypertensi on I10 ; Pure hypercholesterolemia E78.00 and Acute systolic congestive heart failure I50.21 Blayne Sampson MD [address] [place] [address] [id number] 04/24/2025 Blyane Sampson Annual physical exam Z00.00 ; Elevated PSA R97.20 ; Chronic systolic (congestive) heart failure I50.22 ; Iron deficiency anemia, unspecified iron deficiency anemia type D50.9 ; Pure hypercholesterolemia E78.00 ; Essential hypertension I10 ; Prediabetes R73.09 ; Colon cancer screening Z12.11 and Depression screening Z13.31 Blayne Sampson MD [address] [place] [address] [address] [place] [id number] 06/06/2025 Blayne Sampson Elevated PSA R97.20 Assessments [...] Guaiac 08/01/2011 Next Appt Details Provider Name:Blayne reyesr, 10/06/2025 07:30:00 AM, [address] [place] [address], [address], [place], [place], [phone], Provider Name:Blayne sauceda, 10/13/2025 01:30:00 PM, [address] [place] [address], [address], [place], [place], [phone], Provider Name:Blayne sauceda, 04/20/2026 07:00:00 AM, [address], [address], [place], [place], [phone], Provider Name:Blayne Rivera ier, 04/26/2026 01:00:00 PM, [address], [address], [place], [place], [phone], Insurance Providers Payer Name Payer Address Payer Phone Subscriber Number Group Number Insured Name Patient Relationship to Insured Coverage Start Date Coverage End Date [employer] MED[employer]ARE ADVANTAGE [address] [place], [place] [id number] Stef Bustillo Self - patient is the insured MEDICARE [employer] [address] [place] [id number] Stef Bustillo Self - patient is the insured Medical (General) History Medical History History ICD Code Colonoscopy 09/20/12 due in 10 years; colonoscopy booked for 09/11/[address] Prather: Colonoscopy 06/12/23 repeat 5-`0 yr pending path upper endo 09/20/12 with inf lammation duodenum; Upper Endo scheduled for 09/11/[address] Prather Current smoker F17.200 Current smoker
== END 2025-07-24 15:40 | disposition home or self-care (01) ==
LOC: HO.HUSH 15:00
PROVIDERS: PCP Internal Medicine; Visit Provider Urology
DX: N40.0 Benign prostatic hyperplasia without lower urinary tract symptoms (principal); R97.20 Elevated prostate specific antigen [PSA]; Z13.9 Encounter for screening, unspecified
CPT/HCPCS: 99204

== ENCOUNTER → 2025-07-24 14:59 | Outpatient (BNVA) | payer MEDICARE, SELFPAY | PROVIDERS: PCP Internal Medicine; Visit Provider Urology | DX: N40.0 Benign prostatic hyperplasia without lower urinary tract symptoms (principal); R97.20 Elevated prostate specific antigen [PSA] | CPT/HCPCS: 81003; 99202 ==

== ENCOUNTER 2025-08-11 07:26 | Outpatient (REF) | payer MEDICARE, SELFPAY ==
--- OUTSIDE RECORDS SUMMARY | 2024-04-04 04:00 | XMS_ITS ---
Author Organization Blayne Sampson MD Address [address] [place], [place] [id number] Care Team Providers Care Music Cataloguer Name Role Phone Camilla Blayne Primary Care Provider Results Component Value Reference Range Notes Complete Blood Count Auto Di ff Reviewed date:04/05/2024 04:34:22 PM Interpretation: Performing Lab:[facility], [address] [place] [phone] Notes/Report: White Blood Count 8.6 4.8-10.8 X10*3/uL Red Blood Count 5.39 4.60-5.80 X10*6/uL Hemoglobin 12.0 14.0-18.0 g/dl Hematocrit 40.3 42.0-52.0 % Mean Corpuscular Volume 74.8 80.0-98.0 fL Mean Corpuscular Hemoglobin 22.3 27.0-33.0 pg Mean Corpuscular HGB Conc 29.8 31.0-36.0 g/dl Red Cell Distribution Width 18.6 11.0-16.0 % Platelet Count 276 160-400 X10*3/uL Mean Platelet Volume 11.9 9.4-12.4 fL Neutrophils Percent Auto 67.6 45-73 % Imm Gran Pct Auto 0.4 0.0-0.4 % Lymphocytes Percent Auto 14.0 20-40 % Monocytes Percent Auto 6.2 2-11 % Eosinophils Percent Auto 10.9 0-4 % Basophils Percent Auto 0.9 0-2 % NRBC Pct Auto 0.0 0.0-0.2 /100WBC Neutrophils Absolute Auto 5.8 2.0-8.3 x10*3/u L Imm Gran Abs Auto 0.03 0.00-0.03 X10*3/uL Lymphocytes Absolute Auto 1.2 1.2-4.9 X10*3/u L Monocytes Absolute Auto 0.5 0.1-1.2 X10*3/uL Eosinophils Absolute Auto 0.9 0.0-0.4 X10*3/u L Basophils Absolute Auto 0.1 0.0-0.2 X10*3/uL NRBC Abs Auto 0.000 0.0-0.012 X10*3/uL Comprehensive [place]. Panel Fa st Reviewed date:04/05/2024 04:33:53 PM Interpretation: Performing Lab:[facility], [address] [place] [phone] Notes/Report: Sodium 140 135-145 mmol/L Potassium 4.3 3.3-5.1 mmol/L Chloride 109 96-108 mmol/L Carbon Dioxide 23 22-29 mmol/L Anion Gap 12 12-20 Blood Urea Nitrogen 14 9-16 mg/dL Creatinine 0.81 0.5-1.4 mg/dL Estimated Glomerular Filt Rate > 60 NOTE: For -[place] individuals, multiply the result by 1.210. Chronic Kidney Disease: Estimated GFR < 60 mL/min/1.73m2 Severe Kidney Disease: Estimated GFR < 15 mL/min/1.73m2 Glucose Fasting 123 60-99 mg/dL A fasting glucose from 100-125 mg/dl is considered impaired (pre-diabetes). Calcium 9.9 8.4-10.2 mg/dL Bilirubin Total 0.5 0.0-1.0 mg/dL Aspartate Amino Transferase 21 5-37 U/L Alanine Aminotransferase 24 0-40 U/L Total Protein 5.9 6.5-8.0 g/dL Albumin Level 3.6 3.5-5.0 g/dL Alkaline Phosphatase 73 39-117 U/L IRON PROFILE Reviewed date:04/04/2024 12:35:46 PM Interpretation: Performing Lab:[facility], [address] [place] [phone] Notes/Report: Iron 21 45-160 mcg/dL Total Iron Binding Capacity 379 228-428 mcg/d L Percent Iron Saturation 6 15-50 % Unsaturated Iron Binding 358 Lipid Panel Reviewed date:04/04/2024 12:35:35 PM Interpretation: Performing Lab:[facility], [address] [place] [phone] Notes/Report: Triglycerides 90 <150 mg/dL Desirable Triglyceride: less than 150 mg/dL Borderline High Triglyceride 150-199 mg/dL High Triglyceride: 200-499 mg/dL Very High Triglyceride: greater than or equal to 5OO mg/dL Cholesterol 114 <200 mg/dL Desirable Cholesterol: less than 200 mg/dL Borderline High Cholesterol: 200-239 mg/dL High Cholesterol: greater than 239 mg/dL LDL Cholesterol Calculated 53 <100 mg/dL Desirable LDL: less than 100 mg/dL Near Optimal/Above Optimal LDL: 110-129 mg/dL Borderline High LDL: 130-159 mg/dL High LDL: 160-189 mg/dL Very High LDL: greater than or equal to 190 mg/dL HDL Cholesterol 43 >40 mg/dL Desirable HDL: greater than 40 mg/dL Note: This HDL assay may give artificially low results in patients with liver disease. Microalbumin, Random Reviewed date:04/04/2024 12:34:45 PM Interpretation: Performing Lab:[facility], [address] [place] [phone] Notes/Report: Creatinine Urine 89.72 Microalbumin Urine 8.0 Microalbum/Creatinine Ratio Ur 8.9 <30 ug/mg cr Albumin/Creatinine Ratio Reference Ranges: Normal: < 30 ug/mg creatinine Microalbuminuria: 30 - 300 ug/mg creatinine Clinical Albuminuria: > 300 ug/mg creatinine Hemoglobin A1c Reviewed date:04/04/2024 12:34:54 PM Interpretation: Performing Lab:[address] [phone] Notes/Report: Hemoglobin A1c % 5.5 <6.0 % Hemoglobin A1C Reference Range Adults: 4.8 - 6.0 % Non diabetic: < 6.0 % Goal: < 7.0 % Additional Action Suggested: > 8.0 % Note: Hemoglobin A1c results are invalid for patients with abnormal amounts of HbF. Blood transfusions may impact the HbA1c concentration in the patient sample. Estimated Average Glucose 111 eAG = Estimated average glucose which is %A1C expressed as average glucose, using the formula of the L0A-Ustaiks Average Glucose study (ADAG), Diabetes Care, Vol.31,#8, May. 2007 REASON FOR VISIT FASTING LABS Encounters Encounter Location Date Provider Diagnosis Blayne Sampson MD [address] [place] [address] [place] [phone] 04/04/2024 Blayne Sampson Blood tests for rout ine general physical examination Z00.00 ; Prediabetes R73.09 ; Pure hypercholesterolemia E78.00 ; Acute systolic congestive heart failure I50.21 and Iron deficiency anemia, unspecified iron deficiency anemia type D50.9 Assessments Encounter Date Diagnosis (ICD Code) Assessment Notes Treatment Notes Treatment Clinical Notes Section Notes 04/04/2024 Blood tests for rout ine general physical examination (ICD-10 - Z00.00) 04/04/2024 Prediabetes (ICD-10 - R73.09) 04/04/2024 Pure hypercholesterolemia (ICD-10 - E78.00) 04/04/2024 Acute systolic congestive heart failure (ICD-10 - I50.21) 04/04/2024 Iron deficiency anem ia, unspecified iron deficiency anemia type (ICD-10 - D50.9) Plan Of Treatment Next Appt Details Provider Name:Blayne sauceda, 10/06/2025 07:30:00 AM, [address] [place] [address], [address], [phone], Provider Name:Blayne sauceda, 10/13/2025 01:30:00 PM, [address] [place] [address], [address], [phone], Provider Name:Blayne sauceda, 04/20/2026 07:00:00 AM, [address] [place] [address], [address], [phone], Provider Name:Blayne sauceda, 04/26/2026 01:00:00 PM, [address], [address], [place], [place], [phone], Progress Notes * Stef MCMILLANDOB: [birth year] (65 yo M)Acc No.[id number]:04/04/2024 Progress Note Patient: Stef DAI Provider: Charlene Sampson MD :1960 A ge:63 Y S ex:Male Date:04/04/2024 Address:[address] [place] [address] SANDRA [id number] Subjective: * Chief Complaints: * 1 . FASTING LABS. * Medical History: Objective: * Vitals: Assessment: * Assessment: 1. B lood tests for routine general physical examination - Z00.00 (Primary) 2 .?Prediabetes - R73.09 3 . P ure hypercholesterolemia - E78.00 ?4. A cute systolic congestive heart failure - I50.21 5 . I yue deficiency anemia, unspecified iron deficiency anemia type - D50.9 Plan: * Treatment: ?LAB: UA ClnCatch+Micro w/rflx Cult (Order Cancelled)* Jodi Villatoro 03/31/20 02:14:28 PM EDT > To be done 04-04-24 ?LAB: Complete Blood Count Auto Diff (Collection Date & Time - 04/04/2024 07:13 AM)* Jodi Villatoro 03/31/20 02:14:28 PM EDT > To be done 04-04-24 ?LAB: Comprehensive [place]. Panel Fast (Collection Date & Time - 04/04/2024 07:13 AM)* Jodi Villatoro 03/31/20 02:14:28 PM EDT > To be done 04-04-24 ?LAB: IRON PROFILE (Collection Date & Time - 04/04/2024 07:13 AM)* Jodi Villatoro 03/31/20 02:14:28 PM EDT > To be done 04-04-24 ?LAB: Lipid Panel (Collection Date & Time - 04/04/2024 07:13 AM)* Jodi Villatoro 03/31/20 02:14:28 PM EDT > To be done 04-04-24 ?LAB: Microalbumin, Random (Collection Date & Time - 04/04/2024 07:20 AM)* Jodi Villatoro 03/31/20 02:14:28 PM EDT > To be done 04-04-24 ?LAB: Hemoglobin A1c (Collection Date & Time - 04/04/2024 07:13 AM)* Jodi Villatoro 03/31/20 02:14:28 PM EDT > To be done 04-04-24 2.?Prediabetes?LAB: PSA,Total (Free>4and<10) (Order Cancelled)* Jodi Villatoro 03/31/20 02:14:28 PM EDT > To be done 04-04-24 ?LAB: UA ClnCatch+Micro w/rflx Cult (Order Cancelled)* Jodi Villatoro 03/31/20 02:14:28 PM EDT > To be done 04-04-24 ?LAB: Complete Blood Count Auto Diff (Collection Date & Time - 04/04/2024 07:13 AM)* Jodi Villatoro 03/31/20 02:14:28 PM EDT > To be done 04-04-24 ?LAB: Comprehensive [place]. Panel Fast (Collection Date & Time - 04/04/2024 07:13 AM)* Jodi Villatoro 03/31/20 02:14:28 PM EDT > To be done 04-04-24 ?LAB: IRON PROFILE (Collection Date & Time - 04/04/2024 07:13 AM)* Jodi Villatoro 03/31/20 02:14:28 PM EDT > To be done 04-04-24 ?LAB: Lipid Panel (Collection Date & Time - 04/04/2024 07:13 AM)* Jodi Villatoro 03/31/20 02:14:28 PM EDT > To be done 04-04-24 ?LAB: Microalbumin, Random (Collection Date & Time - 04/04/2024 07:20 AM)* Jodi Villatoro 03/31/20 02:14:28 PM EDT > To be done 04-04-24 ?LAB: Hemoglobin A1c (Collection Date & Time - 04/04/2024 07:13 AM)* Jodi Villatoro 03/31/20 02:14:28 PM EDT > To be done 04-04-24 3.?Pure hypercholesterolemia?LAB: PSA,Total (Free>4and<10) (Order Cancelled)* Jodi Villatoro 03/31/20 02:14:28 PM EDT > To be done 04-04-24 ?LAB: UA ClnCatch+Micro w/rflx Cult (Order Cancelled)* Jodi Villatoro 03/31/20 02:14:28 PM EDT > To be done 04-04-24 ?LAB: Complete Blood Count Auto Diff (Collection Date & Time - 04/04/2024 07:13 AM)* Jodi Villatoro 03/31/20 02:14:28 PM EDT > To be done 04-04-24 ?LAB: Comprehensive [place]. Panel Fast (Collection Date & Time - 04/04/2024 07:13 AM)* Jodi Villatoro 03/31/20 02:14:28 PM EDT > To be done 04-04-24 ?LAB: IRON PROFILE (Collection Date & Time - 04/04/2024 07:13 AM)* Jodi Villatoro 03/31/20 02:14:28 PM EDT > To be done 04-04-24 ?LAB: Lipid Panel (Collection Date & Time - 04/04/2024 07:13 AM)* Jodi Villatoro 03/31/20 02:14:28 PM EDT > To be done 04-04-24 ?LAB: Microalbumin, Random (Collection Date & Time - 04/04/2024 07:20 AM)* Jodi Villatoro 03/31/20 02:14:28 PM EDT > To be done 04-04-24 ?LAB: Hemoglobin A1c (Collection Date & Time - 04/04/2024 07:13 AM)* Jodi Villatoro 03/31/20 02:14:28 PM EDT > To be done 04-04-24 4.?Acute systolic congestive heart failure?LAB: PSA,Total (Free>4and<10) (Order Cancelled)* Jodi Villatoro 03/31/20 02:14:28 PM EDT > To be done 04-04-24 ?LAB: UA ClnCatch+Micro w/rflx Cult (Order Cancelled)* Jodi Villatoro 03/31/20 02:14:28 PM EDT > To be done 04-04-24 ?LAB: Complete Blood Count Auto Diff (Collection Date & Time - 04/04/2024 07:13 AM)* Jodi Villatoro 03/31/20 02:14:28 PM EDT > To be done 04-04-24 ?LAB: Comprehensive [place]. Panel Fast (Collection Date & Time - 04/04/2024 07:13 AM)* Jodi Villatoro 03/31/20 02:14:28 PM EDT > To be done 04-04-24 ?LAB: IRON PROFILE (Collection Date & Time - 04/04/2024 07:13 AM)* Jodi Villatoro 03/31/20 02:14:28 PM EDT > To be done 04-04-24 ?LAB: Lipid Panel (Collection Date & Time - 04/04/2024 07:13 AM)* Jodi Villatoro 03/31/20 02:14:28 PM EDT > To be done 04-04-24 ?LAB: Microalbumin, Random (Collection Date & Time - 04/04/2024 07:20 AM)* Jodi Villatoro 03/31/20 02:14:28 PM EDT > To be done 04-04-24 ?LAB: Hemoglobin A1c (Collection Date & Time - 04/04/2024 07:13 AM)* Jodi Villatoro 03/31/20 02:14:28 PM EDT > To be done 04-04-24 5.?Iron deficiency anemia, unspecified iron deficiency anemia type?LAB: PSA,Total (Free>4and<10) (Order Cancelled)* Jodi Villatoro 03/31/20 02:14:28 PM EDT > To be done 04-04-24 ?LAB: UA ClnCatch+Micro w/rflx Cult (Order Cancelled)* Jodi Villatoro 03/31/20 02:14:28 PM EDT > To be done 04-04-24 ?LAB: Complete Blood Count Auto Diff (Collection Date & Time - 04/04/2024 07:13 AM)* Jodi Villatoro 03/31/20 02:14:28 PM EDT > To be done 04-04-24 ?LAB: Comprehensive [place]. Panel Fast (Collection Date & Time - 04/04/2024 07:13 AM)* Jodi Villatoro 03/31/20 02:14:28 PM EDT > To be done 04-04-24 ?LAB: IRON PROFILE (Collection Date & Time - 04/04/2024 07:13 AM)* Jodi Villatoro 03/31/20 02:14:28 PM EDT > To be done 04-04-24 ?LAB: Lipid Panel (Collection Date & Time - 04/04/2024 07:13 AM)* Jodi Villatoro 03/31/20 02:14:28 PM EDT > To be done 04-04-24 ?LAB: Microalbumin, Random (Collection Date & Time - 04/04/2024 07:20 AM)* Jodi Villatoro 06/06/20 24 02:14:28 PM EDT > To be done 04-04-24 ?LAB: Hemoglobin A1c (Collection Date & Time - 04/04/2024 07:13 AM)* Jodi Villatoro 03/31/20 02:14:28 PM EDT > To be done 04-04-24 * * The named appointment provid er may or may not be the originator of this progress note, and it is not deemed complete until electronically signed by the appointment provider. Sign off status: Pending * Provider: Charlene Sampson MD Date: 0 04/04/2024 Generated for Chester [email or web address]/Wally/Hannah on: 1 07:29 AM EDT
--- OUTSIDE RECORDS SUMMARY | 2024-04-21 10:30 | XMS_ITS ---
Author Organization Blayne Sampson MD Address [address] [place], [place] [phone] Care Team Providers Care Perishable Freight Inspector Name Role Phone Blayne Sampson Primary Care Provider [phone] Allergies No Known Allergies Results Component Value [...] Location Date Provider Diagnosis Blayne Sampson MD [address] [place] [address] [address] [place], [place] [phone] 04/21/2024 Blayne Sampson Iron deficiency E61. 1 [...] Reason: Provider Name:Blayne sauceda, 10/06/2025 07:30:00 AM, [address] [place] [address], Suite [facility], [place], [place], [phone], Provider Name:Blayne sauceda, 10/13/2025 01:30:00 PM, [address] [place] [address], Suite [facility], [place], [place], [phone], Provider Name:Blayne sauceda, 04/20/2026 07:00:00 AM, [address] [place] [address], Suite [facility], [place], [place], [phone], Provider Name:Blayne sauceda, 04/26/2026 01:00:00 PM, [address] [place] [address], Suite [facility], [place], [place], [phone], Progress Notes * Stef MCMILLANDOB: [birth year] (63 yo M)Acc No.[id number]:04/21/2024 Progress Notes Patient: Stef Bello Provider: Charlene Sampson MD :1960 A ge:63 Y S ex:Male Date:04/21/2024 Address:[address] [place] [address] Jair SANDRA [id number] Subjective: * Chief Complaints: * A NNUAL [...] yrs, heart disease. 4 sister(s) . . MOther-DC 1 brother 60 [place], Denies mental health/substance abuse family history mother [...] mg/dL Urine Blood Negative Negative - Specific [place] - Urine 1.015 1.005-1.025 - Urine Protein [...] Average Glucose 111 - mg/dL L ab:Comprehensive [place]. Panel Fast (Order Date - 04/04/2024) (Collection [...] 04/21/2024 Generated for Chester mccracken/Wally/Maryannitting on: 1 07:29 AM EDT History and Physical Notes * [...]
--- OUTSIDE RECORDS SUMMARY | 2024-10-14 05:00 | XMS_ITS ---
Author Organization lBayne Sampson MD Address [address] [place], [place] [phone] Care Team Providers Care Secure Software Assessor Name Role Phone Camilla Blayne Primary Care Provider Results Component Value Reference Range Notes Liver Panel Reviewed date:10/14/2024 04:28:28 PM Interpretation: Performing Lab:[facility], [address] [place] [address] Notes/Report: Bilirubin Total 0.5 0.0-1.0 mg/dL Bilirubin Direct 0.2 0.0-0.5 mg/dL Aspartate Amino Transferase 34 5-37 U/L Alanine Aminotransferase 25 0-40 U/L Total Protein 6.0 6.5-8.0 g/dL Albumin Level 3.6 3.5-5.0 g/dL Alkaline Phosphatase 86 39-117 U/L Glucose Fasting Reviewed date:10/14/2024 04:28:00 PM Interpretation: Performing Lab:[facility], [address] [place] [address] Notes/Report: Glucose Fasting 129 60-99 mg/dL A fasting glucose of 126 mg/dl or greater on more than one occasion is considered diagnostic of diabetes. Lipid Panel with Reflex Reviewed date:10/14/2024 04:28:07 PM Interpretation: Performing Lab:[facility], [address] [place] [phone] Notes/Report: Triglycerides 115 <150 mg/dL Desirable Triglyceride: [...] A1c Reviewed date:10/14/2024 04:28:14 PM Interpretation: Performing Lab:[facility], [address] [place] [phone] Notes/Report: Hemoglobin A1c % 5.9 <6.0 % [...] average glucose, using the formula of the Y5V-Osuafat Average Glucose study (ADAG), Diabetes Care, Vol.31,#8, May. 2007 REASON FOR VISIT fasting lipids Encounters Encounter Location Date Provider Diagnosis Blayne Sampson MD [address] [place] [address] Drive [address] [place], [place] [phone] 10/14/2024 Blayne Sampson Pure hypercholestero lemia E78.00 and Prediabetes R73.09 Assessments Encounter Date Diagnosis (ICD Code) Assessment Notes Treatment Notes Treatment Clinical Notes Section Notes 10/14/2024 Pure hypercholesterolemia (ICD-10 - E78.00) Order faxed to [facility] [phone] 10/14/2024 Prediabetes (ICD-10 - R73.09) Plan Of Treatment Treatment Notes Assessment Notes Pure hypercholesterolemia Order faxed to [facility] lab [phone] Next Appt Details Provider Name:Blayne Rivera ier, 10/06/2025 07:30:00 AM, [address] [place] [address] Drive, [address], [place], [place], [phone], Provider Name:Blayne Rivera ier, 10/13/2025 01:30:00 PM, [address] [place] [address], Suite [facility], [place], [place], [phone], Provider Name:Blayne Rivera ier, 04/20/2026 07:00:00 AM, [address] [place] [address], Suite [facility], [place], [place], [phone], Provider Name:Blayne Rivera ier, 04/26/2026 01:00:00 PM, [address] [place] [address], [address], [place], [place], [phone], Progress Notes * Stef MCMILLANDOB: [birth year] (65 yo M)Acc No.[id number]:10/14/2024 Progress Note Patient: Stef DAI Provider: Charlene Sampson MD :1960 A ge:64 Y S ex:Male Date:10/14/2024 Address:[address] [place] [address] dillan [id number] Subjective: * Chief Complaints: * 1 . [...] be done 10-14-24 Notes: Order faxed to [facility] [phone]??2.?Prediabetes?LAB: Liver Panel (Collection Date & Time - 10/14/2024 07:04 AM)* Jodi Villatoro 10/10/20 07:19:25 AM EST > to be done 10-14-24 ?LAB: Glucose Fasting (Collection Date & Time - 10/14/2024 07:04 AM)* Jodi Villatoro 10/10/20 07:19:25 AM EST > to be done 10-14-24 ?LAB: Lipid Panel with Reflex (Collection Date & Time - 10/14/2024 07:04 AM) * Shauna Jodi B 10/10/20 07:19:25 AM EST [...] Pending * Provider: Charlene Sampson MD Date: 12/15/2023 Generated for Chester mccracken/Wally/Hannah on: 07:29 AM EDT
--- OUTSIDE RECORDS SUMMARY | 2024-10-21 10:00 | XMS_ITS ---
Author Organization Blayne Sampson MD Address [address] [place], [place] [id number] Care Team Providers Care Student Services Advisor Name Role Phone Blayne Sampson Primary Care [...] Location Date Provider Diagnosis Blayne Sampson MD [address] [place] [phone] 10/21/2024 Blayne Sampson Essential hypertensi on I10 [...] Details Provider Name:Blayne sauceda, 10/06/2025 07:30:00 AM, [address] [place] [address], [address], [phone], Provider Name:Blayne sauceda, 10/13/2025 01:30:00 PM, [address] [place] [address], [address], [phone], Provider Name:Blayne sauceda, 04/20/2026 07:00:00 AM, [address] [place] [address], [address], [phone], Provider Name:Blayne sauceda, 04/26/2026 01:00:00 PM, [address] [place] [address], [address], [phone], Progress Notes * Stef MCMILLANDOB: [birth year] (64 yo M)Acc No.[id number]:10/21/2024 Progress Notes Patient: Stef Bello Provider: Charlene Sampson MD :1960 A ge:64 Y S ex:Male Date:10/21/2024 Address:[address] [place] [address] Jair grimaldo [id number] Subjective: * Chief Complaints: * 6 month [...] Sampson MD Date: 12/22/2023 Generated for Chester mccracken/Wally/Hannah on: 07:28 AM EDT History and Physical Notes * [...]
--- OUTSIDE RECORDS SUMMARY | 2025-04-17 03:45 | XMS_ITS ---
Author Organization Blayne Sampson MD Address [address] [place], [place] [phone] Care Team Providers Care Machine Assistant Name Role Phone Camilla Blayne Primary Care Provider Results Component Value Reference Range Notes Complete Blood Count Auto Di ff Reviewed date:04/17/2025 05:31:56 PM Interpretation: Performing Lab:[facility], [address] [place] [phone] Notes/Report: White Blood Count 7.8 4.8-10.8 X10*3/uL [...] NRBC Abs Auto 0.000 0.0-0.012 X10*3/uL Comprehensive [place]. Panel Fa st Reviewed date:04/17/2025 05:34:54 PM Interpretation: Performing Lab:[facility], [address] [place] [phone] Notes/Report: Sodium 138 135-145 mmol/L Potassium 4.4 [...] PROFILE Reviewed date:04/17/2025 12:37:07 PM Interpretation: Performing Lab:[address] [phone] Notes/Report: Iron 39 45-160 mcg/dL Total Iron Binding Capacity 364 228-428 mcg/d L Percent Iron Saturation 11 15-50 % Unsaturated Iron Binding 325 Lipid Panel Reviewed date:04/17/2025 12:33:35 PM Interpretation: Performing Lab:[facility], [address] [place] [phone] Notes/Report: Triglycerides 99 <150 mg/dL Desirable Triglyceride: [...] Reviewed date:04/24/2025 02:30:31 PM Interpretation:MATTHEW 04/24/25 Performing Lab:[facility], [address] [place] [phone] Notes/Report: PSA,Total (Free>4and<10) 5.27 0.00-4.00 ng/mL PSA methodology: Steele Alinity i Chemiluminescent Microparticle Immunoassay (CMIA) Microalbumin, Random Reviewed date:04/17/2025 12:37:29 PM Interpretation: Performing Lab:[address] [phone] Notes/Report: Creatinine Urine 92.10 Microalbumin Urine 5.0 Microalbum/Creatinine Ratio Ur 5.4 <30 ug/mg cr Albumin/Creatinine Ratio Reference Ranges: Normal: < 30 ug/mg creatinine Microalbuminuria: 30 - 300 ug/mg creatinine Clinical Albuminuria: > 300 ug/mg creatinine Hemoglobin A1c Reviewed date:04/17/2025 12:26:22 PM Interpretation: Performing Lab:[facility], [address] [place] [phone] Notes/Report: Hemoglobin A1c % 5.9 <6.0 % [...] average glucose, using the formula of the M0Z-Gypwath Average Glucose study (ADAG), Diabetes Care, Vol.31,#8, May. 2007 REASON FOR VISIT yearly fasting labs Encounters Encounter Location Date Provider Diagnosis Blayne Sampson MD [address] [place] [address] [address] [place], [place] [phone] 04/17/2025 Blayne Sampson Blood tests for routine [...] 07:30:00 AM, [address], [address], [place], [place], [phone], Provider Name:Blayne Rivera ier, 10/13/2025 01:30:00 PM, [address], [address], [place], [phone], Provider Name:Blayne Rivera ier, 04/20/2026 07:00:00 AM, [address], [address], [place], [id number], Provider Name:Blayne Rivera ier, 04/26/2026 01:00:00 PM, [address], [address], [place], [phone], Progress Notes * Stef MCMILLANDOB: [birth year] (65 yo M)Acc No.[id number]:04/17/2025 Progress Note Patient: Stef DAI Provider: Charlene Sampson MD :1960 A ge:64 Y S ex:Male Date:04/17/2025 Address:[address] [place] [address] Jair grimaldo [id number] Subjective: * Chief Complaints: * 1 . [...] - 04/17/2025 07:08 AM) L AB: Comprehensive [place]. Panel Fast (Collection Date & Time - [...] - 04/17/2025 07:08 AM) L AB: Comprehensive [place]. Panel Fast (Collection Date & Time - [...] - 04/17/2025 07:08 AM) L AB: Comprehensive [place]. Panel Fast (Collection Date & Time - [...] - 04/17/2025 07:08 AM) L AB: Comprehensive [place]. Panel Fast (Collection Date & Time - [...] - 04/17/2025 07:08 AM) L AB: Comprehensive [place]. Panel Fast (Collection Date & Time - [...] MD Date: 0 04/17/2025 Generated for Chester mccracken/Wally/eTednasmitting on: 1 07:28 AM EDT
--- OUTSIDE RECORDS SUMMARY | 2025-04-24 09:00 | XMS_ITS ---
Author Organization Blayne Sampson MD Address [address] [place], [place] [phone] Care Team Providers Care Ferry Captain Name Role Phone Blayne Sampson Primary Care [...] Location Date Provider Diagnosis Blayne Sampson MD [address] [place] [address] [address] [place], [place] [phone] 04/24/2025 Blayne Sampson Annual physical exam Z00.00 [...] Reason: Provider Name:Blayne sauceda, 10/06/2025 07:30:00 AM, [address] [place] [address], [address], [phone], Provider Name:Blayne sauceda, 10/13/2025 01:30:00 PM, [address] [place] [address], [address], [phone], Provider Name:Blayne sauceda, 04/20/2026 07:00:00 AM, [address] [place] [address], [address], [phone], Provider Name:Blayne sauceda, 04/26/2026 01:00:00 PM, [address] [place] [address], [address], [phone], Progress Notes * Stef MCMILLANDOB: [birth year] (64 yo M)Acc No.[id number]:04/24/2025 Progress Notes Patient: Stef DAI Provider: Charlene Sampson MD :1960 A ge:64 Y S ex:Male Date:04/24/2025 Address:[address] [place] [address] Jair grimaldo [id number] Subjective: * Chief Complaints: * A NNUAL [...] yrs, heart disease. 4 sister(s) . . MOther-[place] 1 brother 60 [place], Denies mental health/substance abuse family history mother [...] mg cr L ab:Hemoglobin A1c (Order Date 04/17/2025) (Collection Date & Time - 04/17/2025 07:08 AM) Value Reference Range Hemoglobin A1c % 5.9 <6.0 - % Estimated Average Glucose 123 - mg/dL L ab:Complete Blood Count Auto Diff (Order Date 04/17/2025) (Collection Date & Time - 04/17/2025 [...] mg/dL Urine Blood Negative Negative - Specific [place] - Urine 1.015 1.005-1.025 - Urine Protein Negative Neg-Trace - mg/dL Urine Ketones Negative Negative - mg/dL Nitrite Urine Negative Negative - Leukocyte Esterase Urine Negative Negative - L ab:Comprehensive [place]. Panel Fast (Order Date - 04/17/2025) (Collection [...] MD Date: 0 04/24/2025 Generated for [place] mccracken/Wally/Nilasmitting on: 1 07:29 AM EDT History and [...]
--- OUTSIDE RECORDS SUMMARY | 2025-05-22 04:00 | XMS_ITS ---
Author Organization Blayne Sampson MD Address [address] [place] [phone] Care Team Providers Care Auto Body Repairer Name Role Phone Blayne Sampson Primary Care Provider REASON FOR VISIT PSA Encounters Encounter Location Date Provider Diagnosis Blayne Sampson MD [address] [facility] [address] [place] [phone] 05/22/2025 Blayne Sampson Plan Of Treatment Next Appt Details Provider Name:Blayne Rivera ier, 10/06/2025 07:30:00 AM, [address] [place] [address], [address] [place] [address], [phone], Provider Name:Blayne Rivera ier, 10/13/2025 01:30:00 PM, [address] [place] [address], Suite [facility], [place], [place], [phone], Provider Name:Blayne sauceda, 04/20/2026 07:00:00 AM, [address] [place] [address], [place] [address], [place], [place], [phone], Provider Name:Blayne sauceda, 04/26/2026 01:00:00 PM, [address], [address], [place], [phone], Progress Notes * Stef MCMILLANDOB: [birth year] (65 yo M)Acc No.[id number]:05/22/2025 Progress Note Patient: Stef DAI Provider: Charlene Sampson MD :1960 A ge:64 Y S ex:Male Date:05/22/2025 Address:[address] [place] [address] [id number] Subjective: * Chief Complaints: * 1 . [...] MD Date: 0 05/22/2025 Generated for [place] mccracken/Wally/Nilasmitting on: 07:29 AM EDT
--- OUTSIDE RECORDS SUMMARY | 2025-06-06 10:15 | XMS_ITS ---
Author Organization Blayne Sampson MD Address [address] [place] [phone] Care Team Providers Care Birdcage Assembler Name Role Phone Blayne Sampson Primary Care Provider [phone] Allergies No Known Allergies REASON FOR VISIT [...] Sampson MD [address] [place], [place] [phone] 06/06/2025 Blayne Sampson Elevated PSA R97.20 Assessments [...] Details Provider Name:Blayne sauceda, 10/06/2025 07:30:00 AM, [address] [place] [address], Suite [facility], [place], [place], [phone], Provider Name:Blayne sauceda, 10/13/2025 01:30:00 PM, [address] [place] [address], [address] [place] [address], [phone], Provider Name:Blayne sauceda, 04/20/2026 07:00:00 AM, [address] [place] [address], Suite [facility], [place], [place], [phone], Provider Name:Blayne sauceda, 04/26/2026 01:00:00 PM, [address] [place] [address], Suite [facility], [place], [place], [phone], Progress Notes * Stef MCMILLANDOB: [birth year] (64 yo M)Acc No.[id number]:06/06/2025 Progress Notes Patient: Stef DAI Provider: Charlene Sampson MD :1960 A ge:64 Y S ex:Male Date:06/06/2025 Address:[address] [place] [address] Jair [id number] Subjective: * Chief Complaints: * 1 month [...] 06/06/2025 Generated for Chester mccracken/Wally/eTednasmitting on: 1 07:28 AM EDT History and Physical Notes [...]
--- OUTSIDE RECORDS SUMMARY | 2025-08-11 07:29 | XMS_ITS | Clinical Summary ---
Author Organization [facility] Facility Address [address] [place] [address] Care Team Providers Care Business Development Intern Name Role Phone Blayne Sampson MD Primary [...] patient's age to complete this topic Insurance [facility] Care Teams Business Development Intern Relationship Specialty Start Date End Date Blayne Sampson MD [address] [place] [address] [address] [place], [place] PCP - General Internal Medicine 11/29/20
--- OUTSIDE RECORDS SUMMARY | 2025-08-11 07:29 | XMS_ITS | Patient Health Record ---
Author Organization Blayne Sampson MD Address [address] [place] [id number] Care Team Providers Care Fish Bait Picker Name Role Phone Blayne Sampson Primary Care Provider Allergies No Known Allergies Results Component Value Reference Range Notes Occult Blood, Stool, Guaiac Reviewed date:04/24/2025 01:34:05 PM Interpretation:Negative Performing Lab: Notes/Report: Negative Occult Blood, Stool, Guaiac Neg Comprehensive Met. Panel Reviewed date:01/06/2025 12:19:16 PM Interpretation: Performing Lab:[facility], [address] [place] [phone] Notes/Report: Sodium 138 135-145 mmol/L Potassium 4.6 [...] Panel Reviewed date:01/06/2025 12:19:01 PM Interpretation: Performing Lab:[facility], [address] [place] [phone] Notes/Report: Bilirubin Direct 0.2 0.0-0.5 mg/dL Lipid Panel Reviewed date:01/06/2025 12:18:51 PM Interpretation: Performing Lab:[facility], [address] [place] [phone] Notes/Report: Triglycerides 100 <150 mg/dL Desirable Triglyceride: [...] NT-proBNP Reviewed date:01/11/2025 03:23:01 PM Interpretation: Performing Lab:[facility], [address] [place] [phone] Notes/Report: NT-proBNP 254 <125 pg/mL THIS TEST WAS PERFORMED AT: [facility] [phone] DAMIAN VÁZQUEZ MD,PHD PSA Free and Total Reviewed date:04/24/2025 02:30:53 PM Interpretation:MATTHEW 04/24 Performing Lab:[facility], [address] [place] [phone] Notes/Report: Prostate Specific Ag Total 4.7 < [...] 30 93 9 (3)Catalona et al.:SIMÓN 277: [id number] (1996) (4)Catalona et al.:SIMÓN 279: 3991-0130 (1997) (x)These estimates vary with age, ethnicity, [...] of disease. THIS TEST WAS PERFORMED AT: [employer] [place] [address] [place] [phone] CARTER BUCHANAN MD Free Prostate Spec Ag 0.5 UA CC w/rflx Micro + Cult Reviewed date:04/17/2025 05:27:15 PM Interpretation: Performing Lab:[facility], [address] [place] [phone] Notes/Report: Urine, Clean Catch Color Urine Yellow Appearance Urine Clear PH 6.0 5.0-9.0 Glucose Urine UA Negative Negative mg/dL Urine Blood Negative Negative Specific [place] - Urine 1.015 1.005-1.025 Urine Protein Negative Neg-Trace mg/dL Urine Ketones Negative Negative mg/dL Nitrite Urine Negative Negative Leukocyte Esterase Urine Negative Negative PSA,Total (Free>4and<10) Reviewed date:05/23/2025 08:22:12 AM Interpretation: Performing Lab:[facility], [address] [place] [phone] Notes/Report: PSA,Total (Free>4and<10) 6.32 0.00-4.00 ng/mL PSA methodology: [employer] i Chemiluminescent Microparticle Immunoassay (CMIA) PSA Free and Total Reviewed date:05/23/2025 01:38:36 PM Interpretation: Performing Lab:[address] [address] Notes/Report: Prostate Specific Ag Total 5.5 < [...] 30 93 9 (3)Swathiona et al.:SIMÓN 277: [id number] (1996) (4)Catalona et al.:SIMÓN 279: 2966-1870 (1997) (x)These estimates vary with age, ethnicity, [...] mind. PSA was performed using the Kris Blenheim Immunoassay method. Values obtained from different assay methods cannot be used interchangeably. PSA levels, regardless of value, should not be interpreted as absolute evidence of the presence or absence of disease. THIS TEST WAS PERFORMED AT: [facility] [address] [phone] CARTER BUCHANAN MD Free Prostate Spec Ag 0.6 PSA,Total (Free>4and<10) Reviewed date:07/04/2025 01:16:48 PM Interpretation: Performing Lab:[facility], [address] [place] [phone] Notes/Report: PSA,Total (Free>4and<10) 6.39 0.00-4.00 ng/mL PSA methodology: [employer] i Chemiluminescent Microparticle Immunoassay (CMIA) PSA Free and Total Reviewed date:07/06/2025 12:58:39 PM Interpretation: Performing Lab:[facility], [address] [place] [phone] Notes/Report: Prostate Specific Ag Total 5.5 < [...] 30 93 9 (3)Catalona et al.:SIMÓN 277: 1658-1931 (1996) (4)Catalona et al.:SIMÓN 279: 7559-3375 (1997) (x)These estimates vary with age, ethnicity, [...] of disease. THIS TEST WAS PERFORMED AT: [employer] [place] [address] [place] [phone] CARTER BUCHANAN MD Free Prostate Spec Ag [...] red pt was given the vaccine at [facility]. Flu Vaccine Unknown 06/24/2017 Administered PPSV23 (Pnemovax) Unknown 12/24/2016 Administered had p neumo at [facility] TDaP IM Intramuscular 11/03/2017 Administered pt was given the vaccine at [facility] Fluarix Quadrivalent Unknown 07/12/2018 Administered CV S Fluarix Quadrivalent IM Intramuscular 07/04/2019 Administe red pt was given the vaccine at [facility] in [place]. Prevnar 13 IM Intramuscular 09/27/2019 Administered Tetanus [...] Risk Notes Problem Diverticulitis of small intestine (16301305) Diverticulitis of small intestine (without mention of hemorrhage) (562.01) Active confirmed Problem 450156328 Chronic systolic (congestive) heart failure (I50.22) Active confirmed Problem 46234738 Essential hypert ension (I10) Active confirmed Problem 9354093 Prediabetes (R73.09) Active confirmed Problem 594985103 Acute systolic congestive heart failure (I50.21) Active confirmed Problem Cardiac pacemaker in situ (745773543) History of cardiac pacemaker (Z95.0) Active confirmed Problem 79691978 Iron deficiency anemia, unspecified iron deficiency anemia type (D50.9) Active confirmed Problem 399135502 Pure hypercholesterolemia (E78.00) Active confirmed Problem 608846183 BMI 35.0-35.9,ad ult (Z68.35) Active confirmed Problem 870042747 Eosinophilia, unspecified type (D72.10) Active confirmed Problem 15203891 Iron disorder (E83.10) Active confirme d Vital Signs Blood pressure diastolic 74 mm Hg 06/06/2025 Height 67.5 in 06/06/2025 Blood pressure systolic 118 mm Hg 06/06/2025 Weight 223 lbs 06/06/2025 BMI 34.41 kg/m2 06/06/2025 Encounters Encounter Location Date Provider Diagnosis Blayne Sampson MD [address] [place] [address] Drive [address] [place] [id number] 10/21/2024 Blayne Sampson Essential hypertensi on I10 ; Pure hypercholesterolemia E78.00 and Acute systolic congestive heart failure I50.21 Blayne Sampson MD [address] [place] [address] [address] [id number] 04/24/2025 Blayne Sampson Annual physical exam Z00.00 ; Elevated PSA R97.20 ; Chronic systolic (congestive) heart failure I50.22 ; Iron deficiency anemia, unspecified iron deficiency anemia type D50.9 ; Pure hypercholesterolemia E78.00 ; Essential hypertension I10 ; Prediabetes R73.09 ; Colon cancer screening Z12.11 and Depression screening Z13.31 Blayne Sampson MD [address] [place] [address] [address] [place] [id number] 06/06/2025 Blayne Sampson Elevated PSA R97.20 Assessments [...] Details Provider Name:Blayne reyesr, 10/06/2025 07:30:00 AM, [address] [place] [address], [address], [place], [place], [phone], Provider Name:Blayne sauceda, 10/13/2025 01:30:00 PM, [address] [place] [address], [address], [place], [place], [phone], Provider Name:Blayne sauceda, 04/20/2026 07:00:00 AM, [address], [address], [place], [place], [phone], Provider Name:Blayne Rivera ier, 04/26/2026 01:00:00 PM, [address], [address], [place], [place], [phone], Insurance Providers Payer Name Payer Address Payer Phone Subscriber Number Group Number Insured Name Patient Relationship to Insured Coverage Start Date Coverage End Date [employer] MED[employer]ARE ADVANTAGE [address] [place], [place] [id number] Stef Bustillo Self - patient is the insured MEDICARE [employer] [address] [place] [phone] [id number] Stef Bustillo Self - patient is the insured Medical (General) History Medical History History ICD Code Colonoscopy 09/20/12 due in 10 years; colonoscopy booked for 09/11/[address] Prather: Colonoscopy 06/12/23 repeat 5-`0 yr pending path upper endo 09/20/12 with inf lammation duodenum; Upper Endo scheduled for 09/11/[address] Prather Current smoker F17.200 Current smoker
--- OUTSIDE RECORDS SUMMARY | 2025-08-11 07:29 | XMS_ITS | Clinical Summary ---
Author Organization [facility] Address [address] [facility] [address] [place] [address] Phone Care Team Providers Care Numerical Control Machine Tool Operator Name Role Phone Blayne Sampson MD [...] topic Medical Devices Not on file Insurance [facility] [place] NSPG PCP ZANE MOSS CONNECTORCARE WELLSENSE [...] NSPG PCP [employer]ANE [employer] Care Teams Numerical Control Machine Tool Operator Relationship Specialty Start Date End Date Blayne Sampson MD [address] [place] [address] [place] [address] PCP - General 11/30/18 Additional Source Comments The information contained in this document represents components of the legal health record. It is not the complete legal health record.[facility]
--- OUTSIDE RECORDS SUMMARY | 2025-08-11 07:29 | XMS_ITS | Patient Health Record ---
Author Organization [facility] Address [address] [place] [address] Care Team Providers Care Marketing Graphics Specialist Name Role Phone Camilla AGUILAR, Blayne Primary Care Provider Eliot Gutierrez Jr Unavailable Reason For Referral No Information Medications Medication SIG (Take, Route, Frequency, Duration) Notes Start Date End Date Status Entresto 97-103 MG TAKE 1 TABLET BY NAT TH TWICE A DAY Oral; Duration: 30 Active Atorvastatin Calcium 40 MG TAKE 1 TABLET BY MOUTH EVERY DAY Oral; Duration: 30 Active Spironolactone 25 MG TAKE 1 TABLET BY MO UTH EVERY DAY WITH FOOD Oral; Duration: 30 Active Iron 325 (65 Fe) MG 1 tablet Orally Once a day; Duration: 30 day(s) Active Clopidogrel Bisulfate 75 MG TAKE 1 TABLE T BY MOUTH EVERY DAY Oral; Duration: 30 Active Aspirin Low Dose 81 MG TAKE 1 TABLET BY MOUTH EVERY DAY Oral; Duration: 90 Active Furosemide 40 MG TAKE 1 TABLET BY NAT TH TWICE A DAY Oral; Duration: 90 Active MiraLax (colon prep) 8.3 ounce ((238) grams mixed with Gatorade or Crystal Light orally begin at 5:00 p.m. the day before the procedure; Duration: 1 day 07/19/2020 Active Immunizations Vaccine Route [...] Problem Status W/U Status Risk Notes Problem Iron deficiency anemia (45379113) Iron deficiency anemia, unspecified iron deficiency anemia type (D50.9) Active confirmed Plan Of Treatment Future Test Test Name Order Date UPPER GI ENDOSCOPY 07/19/2020 COLONOSCOPY 07/19/2020 Insurance Providers Payer Name Payer Address Payer Phone Subscriber Number Group Number Insured Name Patient Relationship to Insured Coverage Start Date Coverage End Date [facility] BCBS PROF[employer] CLAIMS [address] [place] [address] [phone] [id number] FIORELLA BURROWS Self - patient is the insured MEDICAID OF [facility] [address] [place] [address] [phone] [id number] FIORELLA BURROWS Self - patient is the insured Medical (General) History Medical History History ICD Code coronary artery disease with history of DE and stent placement hypertension diverticulitis elevated cholesterol ischemic cardiomyopathy Surgical History Surgery Date(Month/Year) perforated diverticulitis wi th colostomy, sigmoid resection and Abdulaziz pouch, status post reversal. 2007 shoulder surgery 1988 stent/defibrillator placement, [facility] [place] cardi[place]
--- NOTE | 2025-08-11 08:39 | P.OP_ITS ---
Operative Note Operative Note Date of Service: 08/11/25 Narrative: PreOperative Diagnosis:? ? Elevated PSA Post Operative Diagnosis:??Elevated PSA Procedure:?1. Transrectal ultrasound guided biopsy of the prostate 12 core 2. Transrectal ultrasound measurement of prostate 3. Transrectal ultrasound guided pudendal nerve block Surgeon:?Dr Walker Nash Anesthesia:? Local Indications for procedure: Elevated PSA Procedure: Preoperative antibiotics confirmed. After informed consent was verified the patient was placed on the procedure table in left lateral position. Patient identity confirmed. Safety pause time-out performed. Digital rectal exam performed to dilate rectal sphincter, iodine mixed with lubricant jelly 30 cc placed per rectum. Ultrasound probe was placed per rectum. The prostate was visualized. The prostate was measured width 4.56 cm, height 4.32 cm, length 5.17 cm with a volume of 53.26 mL. An ultrasound guided pudendal nerve block was performed using 10 cc of 1% lidocaine. A 12 core biopsy was performed from the left base, left mid, left ape x and right base, mid, apex 2 biopsies from each section. The ultrasound probe was removed and digital palpation of the prostate for 1-2 minutes for hemostasis was performed. The patient tolerated the procedure well. Complications: None
[2025-08-11] MEDS: Lidocaine HCl 1 % MPF 5 ML VIAL 15 ML SUBCUT (08:57)
== END 2025-08-11 07:27 | disposition home or self-care (01) ==
LOC: HO.US 07:26
PROVIDERS: PCP Internal Medicine; Visit Provider Urology
DX: R97.20 Elevated prostate specific antigen [PSA] (principal); N40.0 Benign prostatic hyperplasia without lower urinary tract symptoms
CPT/HCPCS: 55700; 76942; J2003

== ENCOUNTER → 2025-08-11 07:26 | Outpatient (BNV) | payer MEDICARE, SELFPAY | PROVIDERS: PCP Internal Medicine; Visit Provider Urology | DX: R97.20 Elevated prostate specific antigen [PSA] (principal) | CPT/HCPCS: 55700; 76872; 76942 ==

== ENCOUNTER 2025-08-11 13:18 | Outpatient (REF) | payer MEDICARE, SELFPAY ==
--- OUTSIDE RECORDS SUMMARY | 2025-08-11 16:02 | XMS_ITS | Clinical Summary ---
Author Organization [facility] Address [address] [facility] [address] [address] [place] [address] Phone Care Team Providers Care Uniform Cap Operator Name Role Phone Blayne Sampson MD [...] topic Medical Devices Not on file Insurance [facility] SCOTT NSPG PCP ZANE MOSS CONNECTORCARE WELLSENSE [...] NSPG PCP [employer] Care Teams Uniform Cap Operator Relationship Specialty Start Date End Date Blayne Sampson MD [address] [place] [address] [place] [address] PCP - General 11/30/18 Additional Source Comments The information contained in this document represents components of the legal health record. It is not the complete legal health record.[facility]
--- OUTSIDE RECORDS SUMMARY | 2025-08-11 16:02 | XMS_ITS | Clinical Summary ---
Author Organization [facility] Address [address] [place] [address] Care Team Providers Care Microsoft Dynamics Manager Architect Name Role Phone Blayne Sampson MD Primary [...] Insurance [facility] Care Teams Microsoft Dynamics Manager Architect Relationship Specialty Start Date End Date Blayne Sampson MD [address] [place] [address] [id number] [place], [place] PCP - General Internal Medicine 11/29/20
== END 2025-08-11 13:19 | disposition home or self-care (01) ==
LOC: HO.LNP 13:18
PROVIDERS: Visit Provider Urology
DX: N40.0 Benign prostatic hyperplasia without lower urinary tract symptoms (principal); R97.20 Elevated prostate specific antigen [PSA]
CPT/HCPCS: 88305; 88344

== ENCOUNTER 2025-08-25 09:07 | Outpatient (AMB) | payer MEDICARE, SELFPAY ==
--- OUTSIDE RECORDS SUMMARY | 2024-04-04 04:00 | XMS_ITS ---
Author Organization Blayne Sampson MD Address [address] [place], [place] [id number] Care Team Providers Care Typing Office Worker Name Role Phone Camilla Blayne Primary Care Provider Results Component Value Reference Range Notes Complete Blood Count Auto Di ff Reviewed date:04/05/2024 04:34:22 PM Interpretation: Performing Lab:[facility], [address] [place] [phone] Notes/Report: White Blood Count 8.6 4.8-10.8 X10*3/uL [...] NRBC Abs Auto 0.000 0.0-0.012 X10*3/uL Comprehensive [place]. Panel Fa st Reviewed date:04/05/2024 04:33:53 PM Interpretation: Performing Lab:[facility], [address] [place] [phone] Notes/Report: Sodium 140 135-145 mmol/L Potassium 4.3 3.3-5.1 mmol/L Chloride 109 96-108 mmol/L Carbon Dioxide 23 22-29 mmol/L Anion Gap 12 12-20 Blood Urea Nitrogen 14 9-16 mg/dL Creatinine 0.81 0.5-1.4 mg/dL Estimated Glomerular Filt Rate > 60 NOTE: For -[place]inid[place] individuals, multiply the result by 1.210. Chronic [...] PROFILE Reviewed date:04/04/2024 12:35:46 PM Interpretation: Performing Lab:[facility], [address] [place] [phone] Notes/Report: Iron 21 45-160 mcg/dL Total Iron Binding Capacity 379 228-428 mcg/d L Percent Iron Saturation 6 15-50 % Unsaturated Iron Binding 358 Lipid Panel Reviewed date:04/04/2024 12:35:35 PM Interpretation: Performing Lab:[facility], [address] [place] [phone] Notes/Report: Triglycerides 90 <150 mg/dL Desirable Triglyceride: [...] Random Reviewed date:04/04/2024 12:34:45 PM Interpretation: Performing Lab:[facility], [address] [place] [phone] Notes/Report: Creatinine Urine 89.72 Microalbumin Urine 8.0 Microalbum/Creatinine Ratio Ur 8.9 <30 ug/mg cr Albumin/Creatinine Ratio Reference Ranges: Normal: < 30 ug/mg creatinine Microalbuminuria: 30 - 300 ug/mg creatinine Clinical Albuminuria: > 300 ug/mg creatinine Hemoglobin A1c Reviewed date:04/04/2024 12:34:54 PM Interpretation: Performing Lab:[address] [phone] Notes/Report: Hemoglobin A1c % 5.5 <6.0 % [...] average glucose, using the formula of the T6X-Riynujf Average Glucose study (ADAG), Diabetes Care, Vol.31,#8, May. 2007 REASON FOR VISIT FASTING LABS Encounters Encounter Location Date Provider Diagnosis Blayne Sampson MD [address] [place] [address] [place] [phone] 04/04/2024 Blayne Sampson Blood tests for rout [...] Details Provider Name:Blayne sauceda, 10/06/2025 07:30:00 AM, [address] [place] [address], [address], [phone], Provider Name:Blayne sauceda, 10/13/2025 01:30:00 PM, [address] [place] [address], [address], [phone], Provider Name:Blayne sauceda, 04/20/2026 07:00:00 AM, [address] [place] [address], [address], [phone], Provider Name:Blayne sauceda, 04/26/2026 01:00:00 PM, [address], [address], [place], [place], [phone], Progress Notes * Stef MCMILLANDOB: [birth year] (65 yo M)Acc No.[id number]:04/04/2024 Progress Note Patient: Stef DAI Provider: Charlene Sampson MD :1960 A ge:63 Y S ex:Male Date:04/04/2024 Address:[address] [place] [address] SANDRA [id number] Subjective: * Chief Complaints: * 1 . [...] > To be done 04-04-24 ?LAB: Comprehensive [place]. Panel Fast (Collection Date & Time - [...] > To be done 04-04-24 ?LAB: Comprehensive [place]. Panel Fast (Collection Date & Time - [...] > To be done 04-04-24 ?LAB: Comprehensive [place]. Panel Fast (Collection Date & Time - 04/04/2024 07:13 AM)* Jodi Villatoro 03/31/20 02:14:28 PM EDT > To be done 04-04-24 ?LAB: IRON PROFILE (Collection Date & Time - 04/04/2024 07:13 AM)* Joid Villatoro 03/31/20 02:14:28 PM EDT > To [...] Date & Time - 04/04/2024 07:13 AM)* Jdoi Villatoro 03/31/20 02:14:28 PM EDT > To [...] > To be done 04-04-24 ?LAB: Comprehensive [place]. Panel Fast (Collection Date & Time - [...] Date & Time - 04/04/2024 07:13 AM)* oJdi Villatoro 03/31/20 02:14:28 PM EDT > To be done 04-04-24 ?LAB: Comprehensive [place]. Panel Fast (Collection Date & Time - [...] 04/04/2024 Generated for Chester [email or web address]/Wally/Hannah on: 1 09:55 AM EDT
--- OUTSIDE RECORDS SUMMARY | 2024-04-21 10:30 | XMS_ITS ---
Author Organization Blayne Sampson MD Address [address] [place], [place] [id number] Care Team Providers Care Manager Of Customer Billing Name Role Phone Blayne Sampson Primary Care [...] Location Date Provider Diagnosis Blayne Sampson MD [address] [place] [address] [address] [place], [place] [phone] 04/21/2024 Blayne Sampson Iron deficiency E61. 1 [...] Follow Up: 6 Months, Reason: Provider Name:Blayne sauceda, 10/06/2025 07:30:00 AM, [address] [place] [address], Suite [facility], [place], [place], [phone], Provider Name:Blayne sauceda, 10/13/2025 01:30:00 PM, [address] [place] [address], Suite [facility], [place], [place], [phone], Provider Name:Blayne sauceda, 04/20/2026 07:00:00 AM, [address] [place] [address], Suite [facility], [place], [place], [phone], Provider Name:Blayne sauceda, 04/26/2026 01:00:00 PM, [address] [place] [address], Suite [facility], [place], [place], [phone], Progress Notes * Stef MCMILLANDOB: [birth year] (63 yo M)Acc No.[id number]:04/21/2024 Progress Notes Patient: Stef Bello Provider: Charlene Sampson MD :1960 A ge:63 Y S ex:Male Date:04/21/2024 Address:[address] [place] [address] Jair SANDRA [id number] Subjective: * Chief Complaints: * A NNUAL [...] yrs, heart disease. 4 sister(s) . . MOther-[place] 1 brother 60 [place], Denies mental health/substance abuse family history mother [...] Cult (Order Date - 04/04/2024) (Collection Date - 04/04/2024) Value Reference Range Color Urine Yellow - Appearance Urine Clear - PH 6.5 5.0-9.0 - Glucose Urine UA Negative Negative - mg/dL Urine Blood Negative Negative - Specific [place] - Urine 1.015 1.005-1.025 - Urine Protein [...] Random (Order Date - 04/04/2024) (Collection Date - 04/04/2024) Value Reference Range Creatinine Urine 89.72 - mg/dL Microalbumin Urine 8.0 - mg/L Microalbum Creatinine Ratio Ur 8.9 <30 - ug/ mg cr L ab:Hemoglobin A1c (Order Date - 04/04/2024) (Collection Date - 04/04/2024) Value Reference Range Hemoglobin A1c % 5.5 <6.0 - % Estimated Average Glucose 111 - mg/dL L ab:Comprehensive [place]. Panel Fast (Order Date - 04/04/2024) (Collection Date - [...] MD Date: 0 04/21/2024 Generated for Chester mccracken/Wally/Maryannitting on: 1 09:55 AM EDT History and Physical Notes * HPI (History [...]
--- OUTSIDE RECORDS SUMMARY | 2024-10-14 05:00 | XMS_ITS ---
Author Organization Blayne Sampson MD Address [address] [place], [place] [phone] Care Team Providers Care Die Tester Name Role Phone Camilla Blayne Primary Care Provider Results Component Value Reference Range Notes Liver Panel Reviewed date:10/14/2024 04:28:28 PM Interpretation: Performing Lab:[facility], [address] [place] [address] Notes/Report: Bilirubin Total 0.5 0.0-1.0 mg/dL Bilirubin Direct 0.2 0.0-0.5 mg/dL Aspartate Amino Transferase 34 5-37 U/L Alanine Aminotransferase 25 0-40 U/L Total Protein 6.0 6.5-8.0 g/dL Albumin Level 3.6 3.5-5.0 g/dL Alkaline Phosphatase 86 39-117 U/L Glucose Fasting Reviewed date:10/14/2024 04:28:00 PM Interpretation: Performing Lab:[facility], [address] [place] [address] Notes/Report: Glucose Fasting 129 60-99 mg/dL A fasting glucose of 126 mg/dl or greater on more than one occasion is considered diagnostic of diabetes. Lipid Panel with Reflex Reviewed date:10/14/2024 04:28:07 PM Interpretation: Performing Lab:[facility], [address] [place] [phone] Notes/Report: Triglycerides 115 <150 mg/dL Desirable Triglyceride: [...] A1c Reviewed date:10/14/2024 04:28:14 PM Interpretation: Performing Lab:[facility], [address] [place] [phone] Notes/Report: Hemoglobin A1c % 5.9 <6.0 % [...] average glucose, using the formula of the Y1Q-Minbxtx Average Glucose study (ADAG), Diabetes Care, Vol.31,#8, May. 2007 REASON FOR VISIT fasting lipids Encounters Encounter Location Date Provider Diagnosis Blayne Sampson MD [address] [place] [address] Drive [address] [place], [place] [phone] 10/14/2024 Blayne Sampson Pure hypercholestero lemia E78.00 and Prediabetes R73.09 Assessments Encounter Date Diagnosis (ICD Code) Assessment Notes Treatment Notes Treatment Clinical Notes Section Notes 10/14/2024 Pure hypercholesterolemia (ICD-10 - E78.00) Order faxed to [facility] [phone] 10/14/2024 Prediabetes (ICD-10 - R73.09) Plan Of Treatment Treatment Notes Assessment Notes Pure hypercholesterolemia Order faxed to [facility] [phone] Next Appt Details Provider Name:Blayne Rivera ier, 10/06/2025 07:30:00 AM, [address] [place] [address] Drive, [address], [place], [place], [phone], Provider Name:Blayne Rivera ier, 10/13/2025 01:30:00 PM, [address] [place] [address], Suite [facility], [place], [place], [phone], Provider Name:Blayne Rivera ier, 04/20/2026 07:00:00 AM, [address] [place] [address], Suite [facility], [place], [place], [phone], Provider Name:Blayne Rivera ier, 04/26/2026 01:00:00 PM, [address] [place] [address], [address], [place], [place], [phone], Progress Notes * Stef MCMILLANDOB: [birth year] (65 yo M)Acc No.[id number]:10/14/2024 Progress Note Patient: Stef DAI Provider: Charlene Sampson MD :1960 A ge:64 Y S ex:Male Date:10/14/2024 Address:[address] [place] [address] dillan [id number] Subjective: * Chief Complaints: * 1 . [...] be done 10-14-24 Notes: Order faxed to [employer] [phone]??2.?Prediabetes?LAB: Liver Panel (Collection Date & Time - [...] Date: 12/15/2023 Generated for Chester mccracken/Wally/Hannah on: 09:54 AM EDT
--- OUTSIDE RECORDS SUMMARY | 2024-10-21 10:00 | XMS_ITS ---
Author Organization Blayne Sampson MD Address [address] [place], [place] [phone] Care Team Providers Care Pet Feeder Name Role Phone Blayne Sampson Primary Care [...] Location Date Provider Diagnosis Blayne Sampson MD [address] [place] [phone] 10/21/2024 Blayne Sampson Essential hypertensi on I10 [...] Details Provider Name:Blayne sauceda, 10/06/2025 07:30:00 AM, [address] [place] [address], [address], [phone], Provider Name:Blayne sauceda, 10/13/2025 01:30:00 PM, [address] [place] [address], [address], [phone], Provider Name:Blayne sauceda, 04/20/2026 07:00:00 AM, [address] [place] [address], [address], [phone], Provider Name:Blayne sauceda, 04/26/2026 01:00:00 PM, [address] [place] [address], [address], [phone], Progress Notes * Stef MCMILLANDOB: [birth year] (64 yo M)Acc No.[id number]:10/21/2024 Progress Notes Patient: Stef Bello Provider: Charlene Sampson MD :1960 A ge:64 Y S ex:Male Date:10/21/2024 Address:[address] [place] [address] Jair grimaldo [id number] Subjective: * Chief Complaints: * 6 month [...] Date: 12/22/2023 Generated for Chester mccracken/Wally/Maryannitting on: 09:54 AM EDT History and Physical Notes * [...]
--- OUTSIDE RECORDS SUMMARY | 2025-04-17 03:45 | XMS_ITS ---
Author Organization Blayne Sampson MD Address [address] [place], [place] [phone] Care Team Providers Care Film Process Operator Name Role Phone Camilla Blayne Primary Care Provider [phone] Results Component Value Reference Range Notes Complete Blood Count Auto Di ff Reviewed date:04/17/2025 05:31:56 PM Interpretation: Performing Lab:[facility], [address] [place] [phone] Notes/Report: White Blood Count 7.8 4.8-10.8 X10*3/uL [...] NRBC Abs Auto 0.000 0.0-0.012 X10*3/uL Comprehensive [place]. Panel Fa st Reviewed date:04/17/2025 05:34:54 PM Interpretation: Performing Lab:[facility], [address] [place] [phone] Notes/Report: Sodium 138 135-145 mmol/L Potassium 4.4 [...] PROFILE Reviewed date:04/17/2025 12:37:07 PM Interpretation: Performing Lab:[address] [phone] Notes/Report: Iron 39 45-160 mcg/dL Total Iron Binding Capacity 364 228-428 mcg/d L Percent Iron Saturation 11 15-50 % Unsaturated Iron Binding 325 Lipid Panel Reviewed date:04/17/2025 12:33:35 PM Interpretation: Performing Lab:[facility], [address] [place] [phone] Notes/Report: Triglycerides 99 <150 mg/dL Desirable Triglyceride: [...] Reviewed date:04/24/2025 02:30:31 PM Interpretation:MATTHEW 04/24/25 Performing Lab:[facility], [address] [place] [phone] Notes/Report: PSA,Total (Free>4and<10) 5.27 0.00-4.00 ng/mL PSA methodology: Steele Alinity i Chemiluminescent Microparticle Immunoassay (CMIA) Microalbumin, Random Reviewed date:04/17/2025 12:37:29 PM Interpretation: Performing Lab:[address] [phone] Notes/Report: Creatinine Urine 92.10 Microalbumin Urine 5.0 Microalbum/Creatinine Ratio Ur 5.4 <30 ug/mg cr Albumin/Creatinine Ratio Reference Ranges: Normal: < 30 ug/mg creatinine Microalbuminuria: 30 - 300 ug/mg creatinine Clinical Albuminuria: > 300 ug/mg creatinine Hemoglobin A1c Reviewed date:04/17/2025 12:26:22 PM Interpretation: Performing Lab:[facility], [address] [place] [phone] Notes/Report: Hemoglobin A1c % 5.9 <6.0 % [...] average glucose, using the formula of the W3T-Krslgpj Average Glucose study (ADAG), Diabetes Care, Vol.31,#8, May. 2007 REASON FOR VISIT yearly fasting labs Encounters Encounter Location Date Provider Diagnosis Blayne Sampson MD [address] [place] [address] [address] [place], [place] [phone] 04/17/2025 Blayne Sampson Blood tests for routine [...] 07:30:00 AM, [address], [address], [place], [place], [phone], Provider Name:Blayne Rivera ier, 10/13/2025 01:30:00 PM, [address], [address], [place], [phone], Provider Name:Blayne Rivera ier, 04/20/2026 07:00:00 AM, [address], [address], [place], [phone], Provider Name:Blayne Rivera ier, 04/26/2026 01:00:00 PM, [address], [address], [place], [id number], Progress Notes * Stef MCMILLANDOB: [birth year] (65 yo M)Acc No.[id number]:04/17/2025 Progress Note Patient: Stef DAI Provider: Charlene Sampson MD :1960 A ge:64 Y S ex:Male Date:04/17/2025 Address:[address] [place] [address] Jair grimaldo [id number] Subjective: * Chief Complaints: * 1 . [...] - 04/17/2025 07:08 AM) L AB: Comprehensive [place]. Panel Fast (Collection Date & Time - [...] - 04/17/2025 07:08 AM) L AB: Comprehensive [place]. Panel Fast (Collection Date & Time - [...] - 04/17/2025 07:08 AM) L AB: Comprehensive [place]. Panel Fast (Collection Date & Time - [...] - 04/17/2025 07:08 AM) L AB: Comprehensive [place]. Panel Fast (Collection Date & Time - [...] - 04/17/2025 07:08 AM) L AB: Comprehensive [place]. Panel Fast (Collection Date & Time - [...] 04/17/2025 Generated for Chester mccracken/Wally/Maryannitting on: 1 09:53 AM EDT
--- OUTSIDE RECORDS SUMMARY | 2025-04-24 09:00 | XMS_ITS ---
Author Organization Blayne Sampson MD Address [address] [place], [place] [phone] Care Team Providers Care Crop Duster Helper Name Role Phone Blayne Sampson Primary [...] Location Date Provider Diagnosis Blayne Sampson MD [address] [place] [address] [address] [place], [place] [phone] 04/24/2025 Blayne Sampson Annual physical exam Z00.00 [...] Reason: Provider Name:Blayne sauceda, 10/06/2025 07:30:00 AM, [address] [place] [address], [address], [phone], Provider Name:Blayne sauceda, 10/13/2025 01:30:00 PM, [address] [place] [address], [address], [phone], Provider Name:Blayne sauceda, 04/20/2026 07:00:00 AM, [address] [place] [address], [address], [phone], Provider Name:Blayne sauceda, 04/26/2026 01:00:00 PM, [address] [place] [address], [address], [phone], Progress Notes * Stef MCMILLANDOB: [birth year] (64 yo M)Acc No.[id number]:04/24/2025 Progress Notes Patient: Stef DAI Provider: Charlene Sampson MD :1960 A ge:64 Y S ex:Male Date:04/24/2025 Address:[address] [place] [address] Jair grimaldo [phone] Subjective: * Chief Complaints: * A NNUAL [...] yrs, heart disease. 4 sister(s) . . MOther-[place] 1 brother 60 [place], Denies mental health/substance abuse family history mother [...] mg/dL Urine Blood Negative Negative - Specific [place] - Urine 1.015 1.005-1.025 - Urine Protein Negative Neg-Trace - mg/dL Urine Ketones Negative Negative - mg/dL Nitrite Urine Negative Negative - Leukocyte Esterase Urine Negative Negative - L ab:Comprehensive [place]. Panel Fast (Order Date - 04/17/2025) (Collection [...] 04/24/2025 Generated for [place] mccracken/Wally/Nilasmitting on: 1 09:55 AM EDT History and [...]
--- OUTSIDE RECORDS SUMMARY | 2025-05-22 04:00 | XMS_ITS ---
Author Organization Blayne Sampson MD Address [address] [place] [phone] Care Team Providers Care Podiatrist Orthopedic Name Role Phone Blayne Sampson Primary Care Provider REASON FOR VISIT PSA Encounters Encounter Location Date Provider Diagnosis Blayne Sampson MD 10 [facility] [address] [place] [phone] 05/22/2025 Blayne Sampson Plan Of Treatment Next Appt Details Provider Name:Blayne Rivera ier, 10/06/2025 07:30:00 AM, [address] [place] [address], [address] [place] [address], [phone], Provider Name:Blayne Rivera ier, 10/13/2025 01:30:00 PM, [address] [place] [address], Suite [facility], [address], [place], [phone], Provider Name:Blayne sauceda, 04/20/2026 07:00:00 AM, [address] [place] [address], [place] [address], [place], [place], [phone], Provider Name:Blayne sauceda, 04/26/2026 01:00:00 PM, [address], [address], [place], [phone], Progress Notes * Stef MCMILLANDOB: [birth year] (65 yo M)Acc No.[id number]:05/22/2025 Progress Note Patient: Stef DAI Provider: Charlene Sampson MD :1960 A ge:64 Y S ex:Male Date:05/22/2025 Address:[address] [place] [address] [id number] Subjective: * Chief Complaints: * 1 . [...] 0 05/22/2025 Generated for Chester mccracken/Wally/Nilasmitting on: 09:54 AM EDT
--- OUTSIDE RECORDS SUMMARY | 2025-06-06 10:15 | XMS_ITS ---
Author Organization Blayne Sampson MD Address [address] [place] [phone] Care Team Providers Care Fiber Locking Supervisor Name Role Phone Blayne Sampson Primary Care [...] Sampson MD [address] [place], [place] [phone] 06/06/2025 Blayne Sampson Elevated PSA R97.20 Assessments [...] Details Provider Name:Blayne sauceda, 10/06/2025 07:30:00 AM, [address] [place] [address], Suite [facility], [place], [place], [phone], Provider Name:Blayne sauceda, 10/13/2025 01:30:00 PM, [address] [place] [address], [address] [place] [address], [phone], Provider Name:Blayne sauceda, 04/20/2026 07:00:00 AM, [address] [place] [address], Suite [facility], [place], [place], [phone], Provider Name:Blayne sauceda, 04/26/2026 01:00:00 PM, [address] [place] [address], Suite [facility], [place], [place], [phone], Progress Notes * Stef MCMILLANDOB: [birth year] (64 yo M)Acc No.[id number]:06/06/2025 Progress Notes Patient: Stef DAI Provider: Charlene Sampson MD :1960 A ge:64 Y S ex:Male Date:06/06/2025 Address:[address] [place] [address] Jair [id number] Subjective: * Chief Complaints: * 1 month [...] MD Date: 0 06/06/2025 Generated for Chester mccracken/Wally/eTednasmitting on: 1 09:53 AM EDT History and Physical Notes * [...]
--- NOTE | 2025-08-25 09:27 | A.OFFVIS_ITS ---
Intake Visit Reasons: Prostate biopsy results Intake Note: Patient presents today for prostate biopsy results Urology Medication:None Blood Thinner:Aspirin,Clopidogrel Antibiotic Allergies:None Allergies No Known Allergies Allergy (Verified 08/25/25 09:27) [facility] Medical History COVID-19 vaccine series completed Iron deficiency anemia Pre-diabetes Elevated cholesterol HTN (hypertension) CHF (congestive heart failure) Myocardial infarction CAD (coronary artery disease) Ischemic cardiomyopathy Diverticulitis GERD (gastroesophageal reflux disease) Surgical History History of cardiac defibrillator placement Hx of heart artery stent Hx of exploratory laparotomy History of colostomy reversal History of incisional hernia repair History of laparotomy History of esophagogastroduodenoscopy (EGD) H/O colonoscopy Family History Father Lung cancer Social History Patient Tobacco Use Status: Former Tobacco user Tobacco use type: Cigarette service: No Current occupational status: unemployed Results AMB Urinalysis, Automated UA Leukoctes 0 Larry/uL Last Edit by Jalyn Bird on 08/25/25 13:52 UA Nitrite Negative Last Edit by Jalyn Bird on 08/25/25 13:52 UA Urobilinogen 0.2 mg/dL Last Edit by Jalyn Bird on 08/25/25 13:52 UA Protein 0 mg/dL Last Edit by Jalyn Bird on 08/25/25 13:52 UA pH 6.0 Last Edit by Jalyn Bird on 08/25/25 13:52 UA Blood 25 Eris/uL Last Edit by Jalny Bird on 08/25/25 13:52 UA Specific [place] 1.010 Last Edit by Jalyn Bird on 08/25/25 13:52 UA Ketone Negative Last Edit by Jalyn Bird on 08/25/25 13:52 UA Bilirubin 0 mg/dL Last Edit by Jalyn Bird on 08/25/25 13:52 UA Glucose 0 mg/dL Last Edit by Jalyn Bird on 08/25/25 13:52 Assessment & Plan Assessment & Plan Orders: Orders AMB Urinalysis Automated Today N40.0 - Benign prostatic hyperplasia without lower urinary tract symptoms, R97.20 - Elevated prostate specific antigen [PSA] Coding
--- OUTSIDE RECORDS SUMMARY | 2025-08-25 09:54 | XMS_ITS | Clinical Summary ---
Author Organization [facility] Address [address] [facility] [address] [place] [address] Phone Care Team Providers Care Tile Ditcher Name Role Phone Blayne Sampson MD Primary [...] topic Medical Devices Not on file Insurance [facility] [employer]OTT NSPG PCP ZANE MOSS [employer]CARE WELLSENSE [...] NSPG PCP [employer] Care Teams Tile Ditcher Relationship Specialty Start Date End Date Blayne Sampson MD [address] [place] [address] [place] [address] PCP - General 11/30/18 Additional Source Comments The information contained in this document represents components of the legal health record. It is not the complete legal health record.[facility]
--- OUTSIDE RECORDS SUMMARY | 2025-08-25 09:54 | XMS_ITS | Patient Health Record ---
Author Organization Blayne Sampson MD Address [address] [place] [phone] Care Team Providers Care Financial Management Consultant Name Role Phone Blayne Sampson Primary Care Provider Allergies No Known Allergies Results Component Value Reference Range Notes Occult Blood, Stool, Guaiac Reviewed date:04/24/2025 01:34:05 PM Interpretation:Negative Performing Lab: Notes/Report: Negative Occult Blood, Stool, Guaiac Neg Comprehensive Met. Panel Reviewed date:01/06/2025 12:19:16 PM Interpretation: Performing Lab:[facility], [address] [place] [phone] Notes/Report: Sodium 138 135-145 mmol/L Potassium 4.6 [...] Panel Reviewed date:01/06/2025 12:19:01 PM Interpretation: Performing Lab:[facility], [address] [place] [phone] Notes/Report: Bilirubin Direct 0.2 0.0-0.5 mg/dL Lipid Panel Reviewed date:01/06/2025 12:18:51 PM Interpretation: Performing Lab:[facility], [address] [place] [phone] Notes/Report: Triglycerides 100 <150 mg/dL Desirable Triglyceride: [...] NT-proBNP Reviewed date:01/11/2025 03:23:01 PM Interpretation: Performing Lab:[facility], [address] [place] [phone] Notes/Report: NT-proBNP 254 <125 pg/mL THIS TEST WAS PERFORMED AT: [facility]/[address] [phone] DAMIAN VÁZQUEZ MD,PHD PSA Free and Total Reviewed date:04/24/2025 02:30:53 PM Interpretation:MATTHEW 04/24 Performing Lab:[facility], [address] [place] [phone] Notes/Report: Prostate Specific Ag Total 4.7 < [...] 30 93 9 (3)Catalona et al.:SIMÓN 277: [id number] (1996) (4)Catalona et al.:SIMÓN 279: [id number] (1997) (x)These estimates vary with age, ethnicity, [...] of disease. THIS TEST WAS PERFORMED AT: [facility] [address] [place] [phone] CARTER BUCHANAN MD Free Prostate Spec Ag 0.5 UA CC w/rflx Micro + Cult Reviewed date:04/17/2025 05:27:15 PM Interpretation: Performing Lab:[facility], [address] [place] [phone] Notes/Report: Urine, Clean Catch Color Urine Yellow Appearance Urine Clear PH 6.0 5.0-9.0 Glucose Urine UA Negative Negative mg/dL Urine Blood Negative Negative Specific [place] - Urine 1.015 1.005-1.025 Urine Protein Negative Neg-Trace mg/dL Urine Ketones Negative Negative mg/dL Nitrite Urine Negative Negative Leukocyte Esterase Urine Negative Negative PSA,Total (Free>4and<10) Reviewed date:05/23/2025 08:22:12 AM Interpretation: Performing Lab:[facility], [address] [place] [phone] Notes/Report: PSA,Total (Free>4and<10) 6.32 0.00-4.00 ng/mL PSA methodology: [employer] i Chemiluminescent Microparticle Immunoassay (CMIA) PSA Free and Total Reviewed date:05/23/2025 01:38:36 PM Interpretation: Performing Lab:[address] [phone] Notes/Report: Prostate Specific Ag Total 5.5 < [...] 30 93 9 (3)Swathiona et al.:SIMÓN 277: 3853-7592 (1996) (4)Catalona et al.:SIMÓN 279: [id number] (1997) (x)These estimates vary with age, ethnicity, [...] mind. PSA was performed using the Kris [place] Immunoassay method. Values obtained from different assay methods cannot be used interchangeably. PSA levels, regardless of value, should not be interpreted as absolute evidence of the presence or absence of disease. THIS TEST WAS PERFORMED AT: [facility] [address] [phone] CARTER BUCHANAN MD Free Prostate Spec Ag 0.6 PSA,Total (Free>4and<10) Reviewed date:07/04/2025 01:16:48 PM Interpretation: Performing Lab:[facility], [address] [place] [phone] Notes/Report: PSA,Total (Free>4and<10) 6.39 0.00-4.00 ng/mL PSA methodology: Steele Alinity i Chemiluminescent Microparticle Immunoassay (CMIA) PSA Free and Total Reviewed date:07/06/2025 12:58:39 PM Interpretation: Performing Lab:[facility], [address] [place] [phone] Notes/Report: Prostate Specific Ag Total 5.5 < [...] 30 93 9 (3)Catalona et al.:SIMÓN 277: [id number] (1996) (4)Catalona et al.:SIMÓN 279: 4508-0276 (1997) (x)These estimates vary with age, ethnicity, [...] of disease. THIS TEST WAS PERFORMED AT: [facility] [address] [place] [phone] CARTER BUCHANAN MD Free Prostate Spec Ag [...] red pt was given the vaccine at [facility]. Flu Vaccine Unknown 06/24/2017 Administered PPSV23 (Pnemovax) Unknown 12/24/2016 Administered had p neumo [place] [facility] TDaP IM Intramuscular 11/03/2017 [place] [facility] [place] Fluarix Quadrivalent Unknown 07/12/2018 Administered CV S Fluarix Quadrivalent IM Intramuscular 07/04/2019 Administe red pt was given the vaccine at [facility] in [place]. Prevnar 13 IM Intramuscular 09/27/2019 Administered Tetanus [...] Risk Notes Problem Diverticulitis of small intestine (42031208) Diverticulitis of small intestine (without mention of hemorrhage) (562.01) Active confirmed Problem 956729541 Chronic systolic (congestive) heart failure (I50.22) Active confirmed Problem 17177336 Essential hypert ension (I10) Active confirmed Problem 2587280 Prediabetes (R73.09) Active confirmed Problem 677346522 Acute systolic congestive heart failure (I50.21) Active confirmed Problem Cardiac pacemaker in situ (699881619) History of cardiac pacemaker (Z95.0) Active confirmed Problem 00548222 Iron deficiency anemia, unspecified iron deficiency anemia type (D50.9) Active confirmed Problem 833593449 Pure hypercholesterolemia (E78.00) Active confirmed Problem 216796377 BMI 35.0-35.9,ad ult (Z68.35) Active confirmed Problem 953511048 Eosinophilia, unspecified type (D72.10) Active confirmed Problem 82771237 Iron disorder (E83.10) Active confirme d Vital Signs Blood pressure diastolic 74 mm Hg 06/06/2025 Height 67.5 in 06/06/2025 Blood pressure systolic 118 mm Hg 06/06/2025 Weight 223 lbs 06/06/2025 BMI 34.41 kg/m2 06/06/2025 Encounters Encounter Location Date Provider Diagnosis Blayne Sampson MD [address] [place] [address] Drive [address] [place] [id number] 10/21/2024 Blayne Sampson Essential hypertensi on I10 ; Pure hypercholesterolemia E78.00 and Acute systolic congestive heart failure I50.21 Blayne Sampson MD [address] [place] [address] [address] [id number] 04/24/2025 Blayne Sampson Annual physical exam Z00.00 ; Elevated PSA R97.20 ; Chronic systolic (congestive) heart failure I50.22 ; Iron deficiency anemia, unspecified iron deficiency anemia type D50.9 ; Pure hypercholesterolemia E78.00 ; Essential hypertension I10 ; Prediabetes R73.09 ; Colon cancer screening Z12.11 and Depression screening Z13.31 Blayne Sampson MD [address] [place] [address] [address] [place] [id number] 06/06/2025 Blayne Sampson Elevated PSA R97.20 Assessments [...] Details Provider Name:Blayne reyesr, 10/06/2025 07:30:00 AM, [address] [place] [address], [address], [place], [place], [phone], Provider Name:Blayne sauceda, 10/13/2025 01:30:00 PM, [address] [place] [address], [address], [place], [place], [phone], Provider Name:Blayne sauceda, 04/20/2026 07:00:00 AM, [address], [address], [place], [place], [phone], Provider Name:Blayne Rivera ier, 04/26/2026 01:00:00 PM, [address], [address], [place], [place], [phone], Insurance Providers Payer Name Payer Address Payer Phone Subscriber Number Group Number Insured Name Patient Relationship to Insured Coverage Start Date Coverage End Date [employer] MEDICARE ADVANTAGE [address] [place], [place] [id number] Stef Bustillo Self - patient is the insured MEDICARE [employer] [address] [place] [id number] Stef Bustillo Self - patient is the insured Medical (General) History Medical History History ICD Code Colonoscopy 09/20/12 due in 10 years; colonoscopy booked for 09/11/[address] Prather: Colonoscopy 06/12/23 repeat 5-`0 yr pending path upper endo 09/20/12 with inf lammation duodenum; Upper Endo scheduled for 09/11/[address] Prtaher Current smoker F17.200 Current smoker
--- OUTSIDE RECORDS SUMMARY | 2025-08-25 09:55 | XMS_ITS | Clinical Summary ---
Author Organization [facility] Facility Address [address] [place] [address] Care Team Providers Care Chairlift Operator Name Role Phone Blayne Sampson MD [...] patient's age to complete this topic Insurance [facility] Care Teams Chairlift Operator Relationship Specialty Start Date End Date Blayne Sampson MD [address] [place] [address] [address] [place], [place] PCP - General Internal Medicine 11/29/20
--- OUTSIDE RECORDS SUMMARY | 2025-08-25 09:55 | XMS_ITS | Patient Health Record ---
Author Organization [facility] Address [address] [place] [address] Care Team Providers Care Transit Man Name Role Phone Camilla AGUILAR, Blayne Primary Care Provider Eliot Gutierrez Jr Unavailable [phone] Reason For Referral No Information Medications Medication [...] Status Risk Notes Problem Iron deficiency anemia (40160465) Iron deficiency anemia, unspecified iron deficiency anemia type (D50.9) Active confirmed Plan Of Treatment Future Test Test Name Order Date UPPER GI ENDOSCOPY 07/19/2020 COLONOSCOPY 07/19/2020 Insurance Providers Payer Name Payer Address Payer Phone Subscriber Number Group Number Insured Name Patient Relationship to Insured Coverage Start Date Coverage End Date [facility] BCBS PROFESSIONA L CLAIMS [address] [place] [address] [phone] [id number] 1 FIORELLA BURROWS Self - patient is the insured MEDICAID OF [facility] [address] [place] [address] [phone] [id number] FIORELLA BURROWS Self - patient is the insured Medical (General) History Medical History History ICD Code coronary artery disease with history of [place] and stent placement hypertension diverticulitis elevated cholesterol ischemic cardiomyopathy Surgical History Surgery Date(Month/Year) perforated diverticulitis wi th colostomy, sigmoid resection and Abdulaziz pouch, status post reversal. 2007 shoulder surgery 1988 stent/defibrillator placement, [facility] cardiology
== END 2025-08-25 10:06 | disposition home or self-care (01) ==
LOC: HO.HUSH 09:07
PROVIDERS: PCP Internal Medicine; Visit Provider Urology
DX: N40.0 Benign prostatic hyperplasia without lower urinary tract symptoms (principal); R97.20 Elevated prostate specific antigen [PSA]

== ENCOUNTER → 2025-08-25 09:07 | Outpatient (BNVA) | payer MEDICARE, SELFPAY | PROVIDERS: PCP Internal Medicine; Visit Provider Urology | DX: C61 Malignant neoplasm of prostate (principal); Z98.890 Other specified postprocedural states | CPT/HCPCS: 81003; 99212 ==

== ENCOUNTER 2025-10-06 07:09 | Outpatient (REF) | payer MEDICARE, SELFPAY ==
--- OUTSIDE RECORDS SUMMARY | 2024-04-21 09:30 | XMS_ITS ---
Author Organization Blayne Sampson MD Address [address] [place], [place] [id number] Care Team Providers Care Web Production Assistant Name Role Phone Blayne Sampson Primary Care Provider Allergies No Known Allergies Results Component Value Reference Range Notes Occult Blood, Stool, Guaiac Reviewed date:04/21/2024 03:01:42 PM Interpretation:Positive Performing Lab: Notes/Report: Positive Occult Blood, Stool, Guaiac Pos REASON FOR VISIT ANNUAL EXAM Medications Medication SIG (Take, Route, Frequency, Duration) Notes Start Date End Date Status Clopidogrel Bisulfate 75 MG 1 tablet Orally Once a day Active Aspirin 81 MG 1 tablet Orally Once a day Active Toprol XL 25 MG 1 tablet Orally Once a day Active Furosemide 40 MG 1 tablet Orally once a day Active Entresto 49-51 MG 1 tablet Orally Twic e a day Active Excedrin Extra Strength 250-250-65 MG 2 tablets as needed for pain Orally every 6 hrs Not-Taki ng Atorvastatin Calcium 40 MG 1 tablet Orally Once a day Active Aldactone 25 MG 1 tablet Orally Active Social History Tobacco Use: Social History Observation Description Date Details (start date - stop date) Former Smoker NA - NA Tobacco Use/Smoking Question Answer Notes Patient is a former smoker How long has it been since y ou last smoked? 1-5 years Additional Findings: Tobacco Non-User Fo rmer smoker, currently using no form of tobacco Alcohol Screen Question Answer Notes Did you have a drink containing alcohol in the p ast year? No Points 0 Interpretation Negative Vital Signs Blood pressure systolic 92 mm Hg 04/21/20 24 Blood pressure diastolic 56 mm Hg 024 Height 67.5 in 04/21/2024 Weight 216 lbs 04/21/2024 BMI 33.33 kg/m2 04/21/2024 weight is down 10 pounds sin ce 11-03-23 Encounters Encounter Location Date Provider Diagnosis Blayne Sampson MD [address] [place] [address] [address] [place], [place] [id number] 04/21/2024 Blayne Sampson Iron deficiency E61. 1 ; Annual physical exam Z00.00 ; Acute systolic congestive heart failure I50.21 ; Stool guaiac positive R19.5 ; Essential hypertension I10 ; Pure hypercholesterolemia E78.00 ; Colon cancer screening Z12.11 and Negative depression screening Z13.31 Assessments Encounter Date Diagnosis (ICD Code) Assessment Notes Treatment Notes Treatment Clinical Notes Section Notes 04/21/2024 Iron deficiency (ICD -10 - E61.1) has been evaluated with colonoscopy 04/21/2024 Annual physical exam (ICD-10 - Z00.00) labs reviewed and discussed with patient 04/21/2024 Acute systolic congestive heart failure (ICD-10 - I50.21) stable followed by cardiology, will continue current regiment 04/21/2024 Stool guaiac positiv e (ICD-10 - R19.5) has always seeing in stool. had colonoscopy 04/21/2024 Essential hypertensi on (ICD-10 - I10) stable, will continue to monitor, will continue current regment 04/21/2024 Pure hypercholesterolemia (ICD-10 - E78.00) stable, will continue current regiment 04/21/2024 Colon cancer screeni ng (ICD-10 - Z12.11) positive sreen 04/21/2024 Negative depression screening (ICD-10 - Z13.31) negative screen Plan Of Treatment Medication Medication Name Sig Start Date Stop Date Notes Toprol XL 25 MG 1 tablet Orally Once a day Furosemide 40 MG 1 tablet Orally once a day Entresto 49-51 MG 1 tablet Orally Twice a day Atorvastatin Calcium 40 MG 1 tablet Orally Once a day Aldactone 25 MG 1 tablet Orally Treatment Notes Assessment Notes Iron deficiency has been evaluated w ith colonoscopy Annual physical exam labs reviewed and d iscussed with patient Acute systolic congestive heart failure stable followed by cardiology, will continue current regiment Stool guaiac positive has always seeing in stool. had colonoscopy Essential hypertension stable, will cont inue to monitor, will continue current regment Pure hypercholesterolemia stable, will c ontinue current regiment Colon cancer screening positive sreen Negative depression screening negative s creen Next Appt Details Follow Up: 6 Months, Reason: Provider Name:Blayne Rivera ietomy, 10/13/2025 01:30:00 PM, [address] [place] [address], [address], [place], [place], [phone], Provider Name:Blayne sauceda, 04/20/2026 07:00:00 AM, [address] [place] [address], [address], [place], [place], [phone], Provider Name:Blayne sauceda, 04/26/2026 01:00:00 PM, [address] [place] [address] Drive, [address], [place], [place], [phone], Progress Notes * Stef MCMILLANDOB: [birth year] (63 yo M)Acc No.[id number]:04/21/2024 Progress Notes Patient: Stef Bello Provider: Charlene Sampson MD :1960 A ge:63 Y S ex:Male Date:04/21/2024 Address:[address] [place] [address] [id number] Subjective: * Chief Complaints: * A NNUAL EXAM * HPI: D epression Screening: PHQ-9 L ittle interest or pleasure in doing things N ot at all, F eeling down, depressed, or hopeless N ot at all, T rouble falling or staying asleep, or sleeping too much N ot at all, F eeling tired or having little energy N ot at all, P oor appetite or overeating N ot at all, F eeling bad about yourself or that you are a failure, or have let yourself or your family down N ot at all, T rouble concentrating on things, such as reading the newspaper or watching television N ot at all, M oving or speaking so slowly that other people could have noticed; or the opposite, being so fidgety or restless that you have been moving around a lot more than usual N ot at all, T houghts that you would be better off or of hurting yourself in some way N ot at all, T otal Score 0 . I nterpretation and Intervention D epression Screening Findings N egative, F ollow-Up for Depression : review of PHQ-9 found negative result, no follow-up needed. C ommunication Needs: Communication Needs D oes the patient have a hearing impairment N o, D oes the patient have a vision impairment? Y es, I f yes, what is the vision impairment? G lasses, D oes the patient have a cognition impairment? N o. F all Risk: History H ave you had any falls with injury in the past year? N o, H ave you had two or more falls in the past year? N o. S FELICIA Questions: SDOH Questions I n the past year have you been worried about losing housing? N o, I n the past year have you or any family members you live with been unable to get any of the following when it was really needed? Check all that apply: N one. S ymptom(s): patient is a 63 yo male here for annual visit with review of recent labs ans follow up of chronic issues. * ROS: G eneral/Constitutional: Patient denies f atigue , headache. C hange in appetite?denies. C hills d enies. F ever d enies. O phthalmologic: Blurred vision d enies. D ischarge d enies. P ain d enies. E NT: Decreased hearing d enies. S ore throat d enies.?Swollen glands d enies. E ndocrine: Cold intolerance d enies. E xcessive thirst d enies. H eat intolerance d enies. W eight loss d enies. R espiratory: Cough d enies. S hortness of breath at rest d enies. S hortness of breath with exertion d enies. W heezing d enies. C ardiovascular: Chest pain at rest d enies. C hest pain with exertion?denies. I rregular heartbeat d enies. S hortness of breath d enies. ? G astrointestinal: Abdominal pain d enies. A dmits B lood in stool.?Change in bowel habits d enies. D iarrhea d enies. N ausea d enies. R ectal bleeding d enies. V omiting d enies . G enitourinary: Blood in urine d enies. D ifficulty urinating d enies. F requent urination d enies. M usculoskeletal: Patient denies m uscle aches. P ainful joints d enies. W eakness d enies. P eripheral Vascular: Patient denies r ed and blue toes. S kin: Dry skin d enies. I tching d enies. D enies?Mole(s), changes in moles, new moles or any lesions of concern. D enies P hotosensitivity. R libby d enies. N eurologic: Dizziness d enies. F ainting d enies. H eadache?denies. * Medical History: * Surgical History: * Hospitalization/Major Diagno stic Procedure: * Family History: F ather: 62 yrs, diagnosed with Cancer. M other: 75 yrs. D aughter(s): 75 yrs, heart disease. 4 sister(s) . . MOther-OR 1 brother 60 [place], Denies mental health/substance abuse family history mother ans father alcoholics, Denies mental health/substance abuse family history, No pertinent family medical history. * Social History: T obacco Use: T obacco Use/Smoking P atient is a f ormer smoker, H ow long has it been since you last smoked? 1 -5 years, A dditional Findings: Tobacco Non-User F ormer smoker, currently using no form of tobacco. D rugs/Alcohol: A lcohol Screen D id you have a drink containing alcohol in the past year? N o, P oints 0 , I nterpretation N egative. M iscellaneous: n o Caffeine. no Children. no Community involvements. no Exercise. no Home smoke detector use. Marital status: single. Occupation: weeks/months/years, works full-time. Pets: none. no Travel outside of the [place]. * Medications: T akingClopidogrel Bisulfate 75 MG Tablet 1 tablet Orally Once a dayAspirin 81 MG Tablet Delayed Release 1 tablet Orally Once a dayAtorvastatin Calcium 40 MG Tablet 1 tablet Orally Once a dayAldactone 25 MG Tablet 1 tablet Orally Toprol XL 25 MG Tablet Extended Release 24 Hour 1 tablet Orally Once a dayFurosemide 40 MG Tablet 1 tablet Orally once a dayEntresto 49-51 MG Tablet 1 tablet Orally Twice a dayTaking Clopidogrel Bisulfate 75 MG Tablet 1 tablet Orally Once a dayTaking Aspirin 81 MG Tablet Delayed Release 1 tablet Orally Once a dayTaking Atorvastatin Calcium 40 MG Tablet 1 tablet Orally Once a dayTaking Aldactone 25 MG Tablet 1 tablet Orally Taking Toprol XL 25 MG Tablet Extended Release 24 Hour 1 tablet Orally Once a dayTaking Furosemide 40 MG Tablet 1 tablet Orally once a dayTaking Entresto 49-51 MG Tablet 1 tablet Orally Twice a dayNot-Taking/PRNExcedrin Extra Strength 250-250-65 MG Tablet 2 tablets as needed for pain Orally every 6 hrsMedication List reviewed and reconciled with the patientNot-Taking/PRN Excedrin Extra Strength 250-250-65 MG Tablet 2 tablets as needed for pain Orally every 6 hrsMedication List reviewed and reconciled with the patient * Allergies: N .K.D.A.yes[Allergies Verified] Objective: * Vitals: H t: 67.5, Wt:216, BMI:33.33, BP:92/56 weight is down 10 pounds since 11-03-23. * P ast Orders: L ab:Liver Panel (Order Date - 04/04/2024) (Collection Date - 04/04/2024) Value Reference Range Bilirubin Total 0.5 0.0-1.0 - mg/dL Bilirubin Direct 0.2 0.0-0.5 - mg/dL Aspartate Amino Transferase 20 5-37 - U/L Alanine Aminotransferase 23 0-40 - U/L Total Protein 5.9 L 6.5-8.0 - g/dL Albumin Level 3.6 3.5-5.0 - g/dL Alkaline Phosphatase 72 39-117 - U/L L ab:UA CC w/rflx Micro + Cult (Order Date - 04/04/2024) (Collection Date 04/04/2024) Value Reference Range Color Urine Yellow - Appearance Urine Clear - PH 6.5 5.0-9.0 - Glucose Urine UA Negative Negative - mg/dL Urine Blood Negative Negative - Specific [place] - Urine 1.015 1.005-1.025 - Urine Protein Negative Neg-Trace - mg/dL Urine Ketones Negative Negative - mg/dL Nitrite Urine Negative Negative - Leukocyte Esterase Urine Negative Negative - L ab:IRON PROFILE (Order Date - 04/04/2024) (Collection Date - 04/04/2024) Value Reference Range Iron 21 L 45-160 - mcg/dL Total Iron Binding Capacity 379 228-428 - mc g/dL Percent Iron Saturation 6 L 15-50 - % Unsaturated Iron Binding 358 - ug/dL L ab:Lipid Panel (Order Date - 04/04/2024) (Collection Date - 04/04/2024) Value Reference Range Triglycerides 90 <150 - mg/dL Cholesterol 114 <200 - mg/dL LDL Cholesterol Calculated 53 <100 - mg/dL HDL Cholesterol 43 >40 - mg/dL L ab:Microalbumin, Random (Order Date - 04/04/2024) (Collection Date 04/04/2024) Value Reference Range Creatinine Urine 89.72 - mg/dL Microalbumin Urine 8.0 - mg/L Microalbum Creatinine Ratio Ur 8.9 <30 - ug/ mg cr L ab:Hemoglobin A1c (Order Date 04/04/2024) (Collection Date - 04/04/2024) Value Reference Range Hemoglobin A1c % 5.5 <6.0 - % Estimated Average Glucose 111 - mg/dL L ab:Comprehensive [place]. Panel Fast (Order Date 04/04/2024) (Collection Date - 04/04/2024) Value Reference Range Sodium 140 135-145 - mmol/L Bilirubin Total 0.5 0.0-1.0 - mg/dL Aspartate Amino Transferase 21 5-37 - U/L Alanine Aminotransferase 24 0-40 - U/L Total Protein 5.9 L 6.5-8.0 - g/dL Albumin Level 3.6 3.5-5.0 - g/dL Alkaline Phosphatase 73 39-117 - U/L Potassium 4.3 3.3-5.1 - mmol/L Chloride 109 H 96-108 - mmol/L Carbon Dioxide 23 22-29 - mmol/L Anion Gap 12 12-20 - Blood Urea Nitrogen 14 9-16 - mg/dL Creatinine 0.81 0.5-1.4 - mg/dL Estimated Glomerular Filt Rate > 60 - Glucose Fasting 123 H 60-99 - mg/dL Calcium 9.9 8.4-10.2 - mg/dL L ab:Complete Blood Count Auto Diff (Order Date - 04/04/2024) (Collection Date - 04/04/2024) Value Reference Range White Blood Count 8.6 4.8-10.8 - X10*3/uL Red Blood Count 5.39 4.60-5.80 - X10*6/uL Hemoglobin 12.0 L 14.0-18.0 - g/dl Hematocrit 40.3 L 42.0-52.0 - % Mean Corpuscular Volume 74.8 L 80.0-98.0 - fL Mean Corpuscular Hemoglobin 22.3 L 27.0-33.0 - pg Mean Corpuscular HGB Conc 29.8 L 31.0-36.0 - g/ dl Red Cell Distribution Width 18.6 H 11.0-16.0 - % Platelet Count 276 160-400 - X10*3/uL Mean Platelet Volume 11.9 9.4-12.4 - fL Neutrophils Percent Auto 67.6 45-73 - % Imm Gran Pct Auto 0.4 0.0-0.4 - % Lymphocytes Percent Auto 14.0 L 20-40 - % Monocytes Percent Auto 6.2 2-11 - % Eosinophils Percent Auto 10.9 H 0-4 - % Basophils Percent Auto 0.9 0-2 - % NRBC Pct Auto 0.0 0.0-0.2 - /100WBC Neutrophils Absolute Auto 5.8 2.0-8.3 - x10* 3/uL Imm Gran Abs Auto 0.03 0.00-0.03 - X10*3/uL Lymphocytes Absolute Auto 1.2 1.2-4.9 - X10* 3/uL Monocytes Absolute Auto 0.5 0.1-1.2 - X10*3/ uL Eosinophils Absolute Auto 0.9 H 0.0-0.4 - X10* 3/uL Basophils Absolute Auto 0.1 0.0-0.2 - X10*3/ uL NRBC Abs Auto 0.000 0.0-0.012 - X10*3/uL * Examination: G eneral Examination: GENERAL APPEARANCE: w ell developed, well nourished, in no acute distress. HEAD: n ormocephalic, atraumatic. EYES: p upils equal, round, reactive to light and accommodation, sclera non-icteric. EARS: n ormal. ORAL CAVITY: m ucosa moist. THROAT: c lear. NECK/THYROID: n donnie supple, full range of motion, no cervical lymphadenopathy, no bruits. SKIN: w arm and dry, no suspicious lesions. HEART: r egular rate and rhythm, S1, S2 normal, no murmurs.? LUNGS: c lear to auscultation bilaterally. ABDOMEN: s oft, nontender, nondistended, bowel sounds present, normal, no organomegaly , no masses palpable. RECTAL EXAM: n ormal tone, no external hemorrhoids, no masses palpable, prostate normal, stool guaiac , abnormal positive. MALE GENITOURINARY: c ircumcised, no penile lesions or discharge, no testicular mass, testes descended bilaterally. EXTREMITIES: n o clubbing, cyanosis, or edema. NEUROLOGIC: n onfocal, motor strength normal upper and lower extremities, sensory exam intact. Assessment: * Assessment: 1. A nnual physical exam - Z00.00 (Primary) 2 . I yue deficiency - E61.1 3 . A cute systolic congestive heart failure - I50.21 4 . S tool guaiac positive - R19.5 5 .?Essential hypertension - I10 6 . P ure hypercholesterolemia - E78.00 7 . C olon cancer screening - Z12.11 8 . N egative depression screening - Z13.31 Plan: * Treatment: 2. I yue deficiency Notes: has been evaluated with colonoscopy. 3. A cute systolic congestive heart failure Continue Furosemide Tablet, 40 MG, 1 tablet, Orally, once a day; C ontinue Entresto Tablet, 49-51 MG, 1 tablet, Orally, Twice a day. Notes: stable followed by cardiology, will continue current regiment. 4. S tool guaiac positive Notes: has always seeing in stool. had colonoscopy. 5. E ssential hypertension Continue Aldactone Tablet, 25 MG, 1 tablet, Orally; C ontinue Toprol XL Tablet Extended Release 24 Hour, 25 MG, 1 tablet, Orally, Once a day. Notes: stable, will continue to monitor, will continue current regment. 6. P ure hypercholesterolemia Continue Atorvastatin Calcium Tablet, 40 MG, 1 tablet, Orally, Once a day. Notes: stable, will continue current regiment. 7. C olon cancer screening L AB: Occult Blood, Stool, Guaiac P ositive Value Reference Range O ccult Blood, Stool, Guaiac Pos Notes: positive sreen.??8.?Negative depression screening? Notes: negative screen.?? * Procedure Codes: 8 2270 TEST FOR BLOOD, FECES * Follow Up: 6 Months * * Sign off status: Completed true * Provider: Charlene Sampson MD Date: 0 04/21/2024 Generated for Chester mccracken/Wally/Hannah on: 1 12/07/2024 07:13 AM EST History and Physical Notes * HPI (History of Present Illness) Category Sub-Category Detail Notes Category Not es Symptom(s) patient is a 63 yo male here for annual visit with review of recent labs ans follow up of chronic issues. Depression Screening PHQ-9 Little inte rest or pleasure in doing things: Not at all Feeling down, depressed, or hopeless: No t at all Trouble falling or staying asleep, or sl eeping too much: Not at all Feeling tired or having little energy: N ot at all Poor appetite or overeating: Not at all Feeling bad about yourself o r that you are a failure, or have let yourself or your family down: Not at all Trouble concentrating on thi ngs, such as reading the newspaper or watching television: Not at all Moving or speaking so slowly that other people could have noticed; or the opposite, being so fidgety or restless that you have been moving around a lot more than usual: Not at all Thoughts that you would be b trinh off or of hurting yourself in some way: Not at all Total Score: 0 Interpretation and Intervention Depression Osman bhatia Findings: Negative Follow-Up for Depression: : review of PH Q-9 found negative result, no follow-up needed SDOH Questions SDOH Questions In the past year have you been worried about losing housing?: No In the past year have you or any family members you live with been unable to get any of the following when it was really needed? Check all that apply:: None Fall Risk History Have you had any falls with injury i n the past year?: No Have you had two or more falls in the year?: No Communication Needs Communication Needs Does the patient have a hearing impairment: No Does the patient have a vision impairmen t?: Yes If yes, what is the vision impairment?: Glasses Does the patient have a cognition impair ment?: No Examination Category Sub-Category Detail Notes Category Not es General Examination GENERAL APPEARANCE: well dev eloped, well nourished, in no acute distress HEAD: normocephalic, atrau matic EYES: pupils equal, round, reactive to light and accommodation, sclera non-icteric EARS: normal THROAT: clear NECK/THYROID: neck supple, full ra nge of motion, no cervical lymphadenopathy, no bruits HEART: regular rate and rhy thm, S1, S2 normal, no murmurs LUNGS: clear to auscultatio n bilaterally ABDOMEN: soft, nontender, non distended, bowel sounds present, normal, no organomegaly , no masses palpable NEUROLOGIC: nonfocal, motor stre ngth normal upper and lower extremities, sensory exam intact SKIN: warm and dry, no jennifer picious lesions EXTREMITIES: no clubbing, cyanosi s, or edema MALE GENITOURINARY: circumcised, no peni le lesions or discharge, no testicular mass, testes descended bilaterally RECTAL EXAM: normal tone, no exte rnal hemorrhoids, no masses palpable, prostate normal, stool guaiac , abnormal positive ORAL CAVITY: mucosa moist
--- OUTSIDE RECORDS SUMMARY | 2024-10-14 04:00 | XMS_ITS ---
Author Organization Blayne Sampson MD Address [address] [place], [place] [id number] Care Team Providers Care Sail Finisher Hand Name Role Phone Camilla Blayne Primary Care Provider Results Component Value Reference Range Notes Liver Panel Reviewed date:10/14/2024 04:28:28 PM Interpretation: Performing Lab:[facility], [address] [place] [address] Notes/Report: Bilirubin Total 0.5 0.0-1.0 mg/dL Bilirubin Direct 0.2 0.0-0.5 mg/dL Aspartate Amino Transferase 34 5-37 U/L Alanine Aminotransferase 25 0-40 U/L Total Protein 6.0 6.5-8.0 g/dL Albumin Level 3.6 3.5-5.0 g/dL Alkaline Phosphatase 86 39-117 U/L Glucose Fasting Reviewed date:10/14/2024 04:28:00 PM Interpretation: Performing Lab:[facility], [address] [place] [address] Notes/Report: Glucose Fasting 129 60-99 mg/dL A fasting glucose of 126 mg/dl or greater on more than one occasion is considered diagnostic of diabetes. Lipid Panel with Reflex Reviewed date:10/14/2024 04:28:07 PM Interpretation: Performing Lab:[facility], [address] [place] [phone] Notes/Report: Triglycerides 115 <150 mg/dL Desirable Triglyceride: less than 150 mg/dL Borderline High Triglyceride 150-199 mg/dL High Triglyceride: 200-499 mg/dL Very High Triglyceride: greater than or equal to 5OO mg/dL Cholesterol 112 <200 mg/dL Desirable Cholesterol: less than 200 mg/dL Borderline High Cholesterol: 200-239 mg/dL High Cholesterol: greater than 239 mg/dL LDL Cholesterol Calculated 49 <100 mg/dL Desirable LDL: less than 100 mg/dL Near Optimal/Above Optimal LDL: 110-129 mg/dL Borderline High LDL: 130-159 mg/dL High LDL: 160-189 mg/dL Very High LDL: greater than or equal to 190 mg/dL HDL Cholesterol 40 >40 mg/dL Desirable HDL: greater than 40 mg/dL Note: This HDL assay may give artificially low results in patients with liver disease. Hemoglobin A1c Reviewed date:10/14/2024 04:28:14 PM Interpretation: Performing Lab:[facility], [address] [place] [phone] Notes/Report: Hemoglobin A1c % 5.9 <6.0 % Hemoglobin A1C Reference Range Adults: 4.8 - 6.0 % Non diabetic: < 6.0 % Goal: < 7.0 % Additional Action Suggested: > 8.0 % Note: Hemoglobin A1c results are invalid for patients with abnormal amounts of HbF. Blood transfusions may impact the HbA1c concentration in the patient sample. Estimated Average Glucose 123 eAG = Estimated average glucose which is %A1C expressed as average glucose, using the formula of the G7A-Qmhbksr Average Glucose study (ADAG), Diabetes Care, Vol.31,#8, May. 2007 REASON FOR VISIT fasting lipids Encounters Encounter Location Date Provider Diagnosis Blayne Sampson MD [address] [place] [address] Drive [address] [place], [place] [phone] 10/14/2024 Blayne Sampson Pure hypercholestero lemia E78.00 and Prediabetes R73.09 Assessments Encounter Date Diagnosis (ICD Code) Assessment Notes Treatment Notes Treatment Clinical Notes Section Notes 10/14/2024 Pure hypercholesterolemia (ICD-10 - E78.00) Order faxed to [facility] [phone] 10/14/2024 Prediabetes (ICD-10 - R73.09) Plan Of Treatment Treatment Notes Assessment Notes Pure hypercholesterolemia Order faxed to [facility] [phone] Next Appt Details Provider Name:Blayne Rivera ier, 10/13/2025 01:30:00 PM, [address], [address], [place], [place], [phone], Provider Name:Blayne Rivera ier, 04/20/2026 07:00:00 AM, [address], [address], [place], [place], [phone], Provider Name:Blayne Rivera ier, 04/26/2026 01:00:00 PM, [address] [place] [address], [address], [place], [place], [phone], Progress Notes * Stef MCMILLANDOB: [birth year] (65 yo M)Acc No.[id number]:10/14/2024 Progress Note Patient: Stef DAI Provider: Charlene Sampson MD :1960 A ge:64 Y S ex:Male Date:10/14/2024 Address:[address] [place], [place] [id number] Subjective: * Chief Complaints: * 1 . Fasting lipids. * Medical History: Objective: * Vitals: Assessment: * Assessment: 1. P ure hypercholesterolemia - E78.00 2 . P rediabetes - R73.09 Plan: * Treatment: ?LAB: Glucose Fasting (Collection Date & Time - 10/14/2024 07:04 AM)* Jodi Villatoro 10/10/20 07:19:25 AM EST > to be done 10-14-24 ?LAB: Lipid Panel with Reflex (Collection Date & Time - 10/14/2024 07:04 AM) * Jodi Villatoro 10/10/20 07:19:25 AM EST > to be done 10-14-24 ?LAB: Hemoglobin A1c (Collection Date & Time - 10/14/2024 07:04 AM)* MichelpearlSethJodi B 10/10/20 07:19:25 AM EST > to be done 10-14-24 Notes: Order faxed to [facility] [phone]??2.?Prediabetes?LAB: Liver Panel (Collection Date & Time - 10/14/2024 07:04 AM)* MichelpearlMinnaJodi B 10/10/20 07:19:25 AM EST > to be done 10-14-24 ?LAB: Glucose Fasting (Collection Date & Time - 10/14/2024 07:04 AM)* Shauna Jodi B 10/10/20 07:19:25 AM EST > to be done 10-14-24 ?LAB: Lipid Panel with Reflex (Collection Date & Time - 10/14/2024 07:04 AM) * Michelpearl Jodi B 10/10/20 07:19:25 AM EST > to be done 10-14-24 ?LAB: Hemoglobin A1c (Collection Date & Time - 10/14/2024 07:04 AM)* Michelpearl Jodi B 10/10/20 07:19:25 AM EST > to be done 10-14-24 * * The named appointment provid er may or may not be the originator of this progress note, and it is not deemed complete until electronically signed by the appointment provider. Sign off status: Pending * Provider: Charlene Sampson MD Date: 1 12/15/2023 Generated for Chester mccracken/Wally/Maryannitting on: 12/07/2024 07:12 AM EST
--- OUTSIDE RECORDS SUMMARY | 2024-10-21 09:00 | XMS_ITS ---
Author Organization Blayne Sampson MD Address [address] [place], [place] [phone] Care Team Providers Care Pi/Senior Research Associate Name Role Phone Blayne Sampson Primary Care Provider Allergies No Known Allergies REASON FOR VISIT 6 month Medications Medication SIG (Take, Route, Frequency, Duration) Notes Start Date End Date Status Entresto 49-51 MG 1 tablet Orally Twic e a day Active Furosemide 40 MG 1 tablet Orally once a day Active Aldactone 25 MG 1 tablet Orally Active Aspirin 81 MG 1 tablet Orally Once a day Active Toprol XL 25 MG 1 tablet Orally Once a day Active Excedrin Extra Strength 250-250-65 MG 2 tablets as needed for pain Orally every 6 hrs Not-Taki ng Clopidogrel Bisulfate 75 MG 1 tablet Orally Once a day Active Atorvastatin Calcium 40 MG 1 tablet Orally Once a day Active Vital Signs Blood pressure systolic 104 mm Hg 10/21/20 24 Blood pressure diastolic 56 mm Hg 024 Height 67.5 in 10/21/2024 Weight 221 lbs 10/21/2024 BMI 34.10 kg/m2 10/21/2024 weight is up 5 pounds since 04-21-24 Encounters Encounter Location Date Provider Diagnosis Blayne Sampson MD [address] [place] [address] [place] [phone] 10/21/2024 Blayne Sampson Essential hypertensi on I10 ; Pure hypercholesterolemia E78.00 and Acute systolic congestive heart failure I50.21 Assessments Encounter Date Diagnosis (ICD Code) Assessment Notes Treatment Notes Treatment Clinical Notes Section Notes 10/21/2024 Essential hypertensi on (ICD-10 - I10) doing well, will contnue current regiment 10/21/2024 Pure hypercholesterolemia (ICD-10 - E78.00) doing well with good ldl, will continue to monitor and will continuecurrent regiment 10/21/2024 Acute systolic congestive heart failure (ICD-10 - I50.21) doing well. no shortness of breath, will contiue current regiment Plan Of Treatment Medication Medication Name Sig Start Date Stop Date Notes Entresto 49-51 MG 1 tablet Orally Twice a day Furosemide 40 MG 1 tablet Orally once a day Aldactone 25 MG 1 tablet Orally Toprol XL 25 MG 1 tablet Orally Once a day Atorvastatin Calcium 40 MG 1 tablet Orally Once a day Treatment Notes Assessment Notes Essential hypertension doing well, will contnue current regiment Pure hypercholesterolemia doing well wit h good ldl, will continue to monitor and will continuecurrent regiment Acute systolic congestive heart failure doing well. no shortness of breath, will contiue current regiment Next Appt Details Provider Name:Blayne sauceda, 10/13/2025 01:30:00 PM, [address] [place] [address], [address], [phone], Provider Name:Blayne sauceda, 04/20/2026 07:00:00 AM, [address] [place] [address], [place] [address], [place], [place], [phone], Provider Name:Blayne sauceda, 04/26/2026 01:00:00 PM, [address] [place] [address], [place] [address], [place], [place], [phone], Progress Notes * Stef MCMILLANDOB: [birth year] (64 yo M)Acc No.[id number]:10/21/2024 Progress Notes Patient: Jair Stef coronado Provider: Charlene Sampson MD :1960 A ge:64 Y S ex:Male Date:10/21/2024 Address:[address] [place] [address] Jair grimaldo [id number] Subjective: * Chief Complaints: * 6 month * HPI: S ymptom(s): patient is a 64 yo male here for6 month follow up. is doing well. no chest pain. * ROS: G eneral/Constitutional: Denies C hills. D enies F atigue. D enies F ever. D enies H eadache. E NT: Patient denies d ecreased sense of smell , any loss of taste , sore throat. D enies S ore throat. E ndocrine: Admits D ifficulty sleeping. D enies D izziness.?Denies E xcessive sweating. A dmits E xcessive thirst. A dmits F requent urination. R espiratory: Denies C ough. D enies S hortness of breath at rest. D enies S hortness of breath with exertion. G astrointestinal: Denies D iarrhea. D enies N ausea. M usculoskeletal: Patient denies m uscle aches. P eripheral Vascular: Patient denies r ed and blue toes. * Medical History: * Surgical History: * Hospitalization/Major Diagno stic Procedure: * Medications: T akingClopidogrel Bisulfate 75 MG [...] Verified] Objective: * Vitals: H t: 67.5, Wt:221, BMI:34.10, BP:104/56 weight is up 5 pounds since 04-21-24. * P ast Orders: L ab:Lipid Panel with Reflex (Order Date - 10/14/2024) (Collection Date - 10/14/2024) Value Reference Range Triglycerides 115 <150 - mg/dL Cholesterol 112 <200 - mg/dL LDL Cholesterol Calculated 49 <100 - mg/dL HDL Cholesterol 40 L >40 - mg/dL L ab:Hemoglobin A1c (Order Date - 10/14/2024) (Collection Date - 10/14/2024) Value Reference Range Hemoglobin A1c % 5.9 <6.0 - % Estimated Average Glucose 123 - mg/dL L ab:Liver Panel (Order Date - 10/14/2024) (Collection Date - 10/14/2024) Value Reference Range Bilirubin Total 0.5 0.0-1.0 - mg/dL Bilirubin Direct 0.2 0.0-0.5 - mg/dL Aspartate Amino Transferase 34 5-37 - U/L Alanine Aminotransferase 25 0-40 - U/L Total Protein 6.0 L 6.5-8.0 - g/dL Albumin Level 3.6 3.5-5.0 - g/dL Alkaline Phosphatase 86 39-117 - U/L L ab:Glucose Fasting (Order Date - 10/14/2024) (Collection Date - 10/14/2024) Value Reference Range Glucose Fasting 129 H 60-99 - mg/dL * Examination: G eneral Examination: GENERAL APPEARANCE: a lert, well hydrated, in no distress , male. HEAD: n ormocephalic. SKIN: g ood turgor. HEART: r egular rate and rhythm , no murmurs, rubs, gallops. LUNGS: n o wheezes, rales, rhonchi , good air movement , clear to auscultation bilaterally. Assessment: * Assessment: 1. E ssential hypertension - I10 (Primary) 2 . P ure hypercholesterolemia - E78.00 3 . A cute systolic congestive heart failure - I50.21 Plan: * Treatment: 2. P ure hypercholesterolemia Continue Atorvastatin Calcium Tablet, 40 MG, 1 tablet, Orally, Once a day. Notes: doing well with good ldl, will continue to monitor and will continuecurrent regiment ? 3. A cute systolic congestive heart failure Continue Entresto Tablet, 49-51 MG, 1 tablet, Orally, Twice a day; C ontinue Furosemide Tablet, 40 MG, 1 tablet, Orally, once a day. Notes: doing well. no shortness of breath, will contiue current regiment * Procedure Codes: * * Sign off status: Completed true * Provider: Charlene Sampson MD Date: 12/22/2023 Generated for Chester mccracken/Wally/Maryannitting on: 12/07/2024 07:12 AM EST History and Physical Notes * HPI (History of Present Illness) Category Sub-Category Detail Notes Category Not es Symptom(s) patient is a 64 yo male here for6 month follow up. is doing well. no chest pain Examination Category Sub-Category Detail Notes Category Not es General Examination GENERAL APPEARANCE: alert, w ell hydrated, in no distress , male HEAD: normocephalic HEART: regular rate and rhy thm , no murmurs, rubs, gallops LUNGS: no wheezes, rales, r honchi , good air movement , clear to auscultation bilaterally SKIN: good turgor
--- OUTSIDE RECORDS SUMMARY | 2025-04-17 02:45 | XMS_ITS ---
Author Organization Blayne Sampson MD Address [address] [place], [place] [id number] Care Team Providers Care Map Colorer Name Role Phone Camilla Blayne Primary Care Provider Results Component Value Reference Range Notes Complete Blood Count Auto Di ff Reviewed date:04/17/2025 05:31:56 PM Interpretation: Performing Lab:[facility], [address] [place] [phone] Notes/Report: White Blood Count 7.8 4.8-10.8 X10*3/uL Red Blood Count 5.44 4.60-5.80 X10*6/uL Hemoglobin 13.3 14.0-18.0 g/dl Hematocrit 42.1 42.0-52.0 % Mean Corpuscular Volume 77.4 80.0-98.0 fL Mean Corpuscular Hemoglobin 24.4 27.0-33.0 pg Mean Corpuscular HGB Conc 31.6 31.0-36.0 g/dl Red Cell Distribution Width 19.3 11.0-16.0 % Platelet Count 238 160-400 X10*3/uL Mean Platelet Volume 10.8 9.4-12.4 fL Neutrophils Percent Auto 65.1 45-73 % Imm Gran Pct Auto 0.1 0.0-0.4 % Lymphocytes Percent Auto 18.4 20-40 % Monocytes Percent Auto 8.3 2-11 % Eosinophils Percent Auto 7.6 0-4 % Basophils Percent Auto 0.5 0-2 % NRBC Pct Auto 0.0 0.0-0.2 /100WBC Neutrophils Absolute Auto 5.1 2.0-8.3 x10*3/u L Imm Gran Abs Auto 0.01 0.00-0.03 X10*3/uL Lymphocytes Absolute Auto 1.4 1.2-4.9 X10*3/u L Monocytes Absolute Auto 0.7 0.1-1.2 X10*3/uL Eosinophils Absolute Auto 0.6 0.0-0.4 X10*3/u L Basophils Absolute Auto 0.0 0.0-0.2 X10*3/uL NRBC Abs Auto 0.000 0.0-0.012 X10*3/uL Comprehensive [place]. Panel Fa st Reviewed date:04/17/2025 05:34:54 PM Interpretation: Performing Lab:[facility], [address] [place] [phone] Notes/Report: Sodium 138 135-145 mmol/L Potassium 4.4 3.3-5.1 mmol/L Chloride 109 96-108 mmol/L Carbon Dioxide 23 22-29 mmol/L Anion Gap 10 12-20 Blood Urea Nitrogen 16 9-16 mg/dL Creatinine 0.85 0.5-1.4 mg/dL Estimated Glomerular Filt Rate > 60 Chronic Kidney Disease: Estimated GFR < 60 mL/min/1.73m2 Severe Kidney Disease: Estimated GFR < 15 mL/min/1.73m2 Glucose Fasting 113 60-99 mg/dL A fasting glucose from 100-125 mg/dl is considered impaired (pre-diabetes). Calcium 9.5 8.4-10.2 mg/dL Bilirubin Total 0.6 0.0-1.0 mg/dL Aspartate Amino Transferase 31 5-37 U/L Alanine Aminotransferase 24 0-40 U/L Total Protein 6.1 6.5-8.0 g/dL Albumin Level 3.9 3.5-5.0 g/dL Alkaline Phosphatase 84 39-117 U/L IRON PROFILE Reviewed date:04/17/2025 12:37:07 PM Interpretation: Performing Lab:[address] [phone] Notes/Report: Iron 39 45-160 mcg/dL Total Iron Binding Capacity 364 228-428 mcg/d L Percent Iron Saturation 11 15-50 % Unsaturated Iron Binding 325 Lipid Panel Reviewed date:04/17/2025 12:33:35 PM Interpretation: Performing Lab:[facility], [address] [place] [phone] Notes/Report: Triglycerides 99 <150 mg/dL Desirable Triglyceride: less than 150 mg/dL Borderline High Triglyceride 150-199 mg/dL High Triglyceride: 200-499 mg/dL Very High Triglyceride: greater than or equal to 5OO mg/dL Cholesterol 109 <200 mg/dL Desirable Cholesterol: less than 200 mg/dL Borderline High Cholesterol: 200-239 mg/dL High Cholesterol: greater than 239 mg/dL LDL Cholesterol Calculated 47 <100 mg/dL Desirable LDL: less than 100 mg/dL Near Optimal/Above Optimal LDL: 110-129 mg/dL Borderline High LDL: 130-159 mg/dL High LDL: 160-189 mg/dL Very High LDL: greater than or equal to 190 mg/dL HDL Cholesterol 43 >40 mg/dL Desirable HDL: greater than 40 mg/dL Note: This HDL assay may give artificially low results in patients with liver disease. PSA,Total (Free>4and<10) Reviewed date:04/24/2025 02:30:31 PM Interpretation:MATTHEW 04/24/25 Performing Lab:[facility], [address] [place] [phone] Notes/Report: PSA,Total (Free>4and<10) 5.27 0.00-4.00 ng/mL PSA methodology: Steele Alinity i Chemiluminescent Microparticle Immunoassay (CMIA) Microalbumin, Random Reviewed date:04/17/2025 12:37:29 PM Interpretation: Performing Lab:[address] [phone] Notes/Report: Creatinine Urine 92.10 Microalbumin Urine 5.0 Microalbum/Creatinine Ratio Ur 5.4 <30 ug/mg cr Albumin/Creatinine Ratio Reference Ranges: Normal: < 30 ug/mg creatinine Microalbuminuria: 30 - 300 ug/mg creatinine Clinical Albuminuria: > 300 ug/mg creatinine Hemoglobin A1c Reviewed date:04/17/2025 12:26:22 PM Interpretation: Performing Lab:[facility], [address] [place] [phone] Notes/Report: Hemoglobin A1c % 5.9 <6.0 % [...] average glucose, using the formula of the [id number] Average Glucose study (ADAG), Diabetes Care, Vol.31,#8, May. 2007 REASON FOR VISIT yearly fasting labs Encounters Encounter Location Date Provider Diagnosis Blayne Sampson MD [address] [place] [address] [address] [place], [place] [id number] 04/17/2025 Blayne Sampson Blood tests for routine general physical examination Z00.00 ; Prediabetes R73.09 ; Essential hypertension I10 ; Acute systolic congestive heart failure I50.21 ; Iron deficiency anemia, unspecified iron deficiency anemia type D50.9 and Chronic systolic (congestive) heart failure I50.22 Assessments Encounter Date Diagnosis (ICD Code) Assessment Notes Treatment Notes Treatment Clinical Notes Section Notes 04/17/2025 Blood tests for routine general physical examination (ICD-10 - Z00.00) 04/17/2025 Prediabetes (ICD-10 - R73.09) 04/17/2025 Essential hypertension (ICD-10 - I10) 04/17/2025 Acute systolic congestive heart failure (ICD-10 - I50.21) 04/17/2025 Iron deficiency anemia, unspecified iron deficiency anemia type (ICD-10 - D50.9) 04/17/2025 Chronic systolic (congestive) heart failure (ICD-10 - I50.22) Plan Of Treatment Pending Test Test Name Order Date UA ClnCatch+Micro w/rflx Cult 04/17/2025 Next Appt Details Provider Name:Blayne Rivera ietomy, 10/13/2025 01:30:00 PM, [address], [address], [place], [id number], Provider Name:Blayne Rivera ier, 04/20/2026 07:00:00 AM, [address], [address], [place], [id number], Provider Name:Blayne Rivera ier, 04/26/2026 01:00:00 PM, [address], [address], [place], [id number], Progress Notes * Stef MCMILLANDOB: [birth year] (65 yo M)Acc No.[id number]:04/17/2025 Progress Note Patient: Stef DAI Provider: Charlene Sampson MD :1960 A ge:64 Y S ex:Male Date:04/17/2025 Address:[address] [place] [address] [id number] Subjective: * Chief Complaints: * 1 . Yearly fasting labs. * Medical History: Objective: * Vitals: Assessment: * Assessment: 1. B lood tests for routine general physical examination - Z00.00 (Primary) 2 .?Prediabetes - R73.09 3 . E ssential hypertension - I10 4 .?Acute systolic congestive heart failure - I50.21 5 . I yue deficiency anemia, unspecified iron deficiency anemia type - D50.9 6 . C hronic systolic (congestive) heart failure - I50.22 Plan: * Treatment: 2. P rediabetes L AB: UA ClnCatch+Micro w/rflx Cult L AB: Complete Blood Count Auto Diff (Collection Date & Time - 04/17/2025 07:08 AM) L AB: Comprehensive [place]. Panel Fast (Collection Date & Time - 04/17/2025 07:08 AM) L AB: IRON PROFILE (Collection Date & Time - 04/17/2025 07:08 AM) L AB: Lipid Panel (Collection Date & Time - 04/17/2025 07:08 AM) L AB: PSA,Total (Free>4and<10) (Collection Date & Time - 04/17/2025 07:08 AM) L AB: Microalbumin, Random (Collection Date & Time - 04/17/2025 07:15 AM) L AB: Hemoglobin A1c (Collection Date & Time - 04/17/2025 07:08 AM) 3. E ssential hypertension L AB: UA ClnCatch+Micro w/rflx Cult L AB: Complete Blood Count Auto Diff (Collection Date & Time - 04/17/2025 07:08 AM) L AB: Comprehensive [place]. Panel Fast (Collection Date & Time - 04/17/2025 07:08 AM) L AB: IRON PROFILE (Collection Date & Time - 04/17/2025 07:08 AM) L AB: Lipid Panel (Collection Date & Time - 04/17/2025 07:08 AM) L AB: PSA,Total (Free>4and<10) (Collection Date & Time - 04/17/2025 07:08 AM) L AB: Microalbumin, Random (Collection Date & Time - 04/17/2025 07:15 AM) L AB: Hemoglobin A1c (Collection Date & Time - 04/17/2025 07:08 AM) 4. A cute systolic congestive heart failure L AB: UA ClnCatch+Micro w/rflx Cult L AB: Complete Blood Count Auto Diff (Collection Date & Time - 04/17/2025 07:08 AM) L AB: Comprehensive [place]. Panel Fast (Collection Date & Time - 04/17/2025 07:08 AM) L AB: IRON PROFILE (Collection Date & Time - 04/17/2025 07:08 AM) L AB: Lipid Panel (Collection Date & Time - 04/17/2025 07:08 AM) L AB: PSA,Total (Free>4and<10) (Collection Date & Time - 04/17/2025 07:08 AM) L AB: Microalbumin, Random (Collection Date & Time - 04/17/2025 07:15 AM) L AB: Hemoglobin A1c (Collection Date & Time - 04/17/2025 07:08 AM) 5. I yue deficiency anemia, unspecified iron deficiency anemia type L AB: UA ClnCatch+Micro w/rflx Cult L AB: Complete Blood Count Auto Diff (Collection Date & Time - 04/17/2025 07:08 AM) L AB: Comprehensive [place]. Panel Fast (Collection Date & Time - 04/17/2025 07:08 AM) L AB: IRON PROFILE (Collection Date & Time - 04/17/2025 07:08 AM) L AB: Lipid Panel (Collection Date & Time - 04/17/2025 07:08 AM) L AB: PSA,Total (Free>4and<10) (Collection Date & Time - 04/17/2025 07:08 AM) L AB: Microalbumin, Random (Collection Date & Time - 04/17/2025 07:15 AM) L AB: Hemoglobin A1c (Collection Date & Time - 04/17/2025 07:08 AM) 6. C hronic systolic (congestive) heart failure L AB: UA ClnCatch+Micro w/rflx Cult L AB: Complete Blood Count Auto Diff (Collection Date & Time - 04/17/2025 07:08 AM) L AB: Comprehensive [place]. Panel Fast (Collection Date & Time - 04/17/2025 07:08 AM) L AB: IRON PROFILE (Collection Date & Time - 04/17/2025 07:08 AM) L AB: Lipid Panel (Collection Date & Time - 04/17/2025 07:08 AM) L AB: PSA,Total (Free>4and<10) (Collection Date & Time - 04/17/2025 07:08 AM) L AB: Microalbumin, Random (Collection Date & Time - 04/17/2025 07:15 AM) L AB: Hemoglobin A1c (Collection Date & Time - 04/17/2025 07:08 AM) * * The named appointment provid er may or may not be the originator of this progress note, and it is not deemed complete until electronically signed by the appointment provider. Sign off status: Pending * Provider: Charlene Sampson MD Date: 0 04/17/2025 Generated for Chester mccracken/Wally/Maryannitting on: 1 12/07/2024 07:12 AM EST
--- OUTSIDE RECORDS SUMMARY | 2025-04-24 08:00 | XMS_ITS ---
Author Organization Blayne Sampson MD Address [address] [place], [place] [phone] Care Team Providers Care Diamond Driller Helper Name Role Phone Blayne Sampson Primary Care Provider [phone] Allergies No Known Allergies Results Component Value Reference Range Notes Occult Blood, Stool, Guaiac Reviewed date:04/24/2025 01:34:05 PM Interpretation:Negative Performing Lab: Notes/Report: Negative Occult Blood, Stool, Guaiac Neg REASON FOR VISIT ANNUAL / CBACK PSA Medications Medication SIG (Take, Route, Frequency, Duration) Notes Start Date End Date Status Aspirin 81 MG 1 tablet Orally Once a day Active Aldactone 25 MG 1 tablet Orally Active Toprol XL 25 MG 1 tablet Orally Once a day Active Entresto 49-51 MG 1 tablet Orally Twic e a day Active Furosemide 40 MG 1 tablet Orally once a day Active Excedrin Extra Strength 250-250-65 MG 2 tablets as needed for pain Orally every 6 hrs Not-Taki ng Atorvastatin Calcium 40 MG 1 tablet Orally Once a day Active Clopidogrel Bisulfate 75 MG 1 tablet Orally Once a day Active Social History Tobacco Use: Social History [...] Signs Blood pressure systolic 92 mm Hg 04/24/20 25 Blood pressure diastolic 60 mm Hg 025 Height 67.5 in 04/24/2025 Weight 222 lbs 04/24/2025 BMI 34.25 kg/m2 04/24/2025 Encounters Encounter Location Date Provider Diagnosis Blayne Sampson MD [address] [place] [address] [address] [place], [place] [phone] 04/24/2025 Blayne Sampson Annual physical exam Z00.00 ; Elevated PSA R97.20 ; Chronic systolic (congestive) heart failure I50.22 ; Iron deficiency anemia, unspecified iron deficiency anemia type D50.9 ; Pure hypercholesterolemia E78.00 ; Essential hypertension I10 ; Prediabetes R73.09 ; Colon cancer screening Z12.11 and Depression screening Z13.31 Assessments Encounter Date Diagnosis (ICD Code) Assessment Notes Treatment Notes Treatment Clinical Notes Section Notes 04/24/2025 Annual physical exam (ICD-10 - Z00.00) labs reviewed and discussed with patient 04/24/2025 Elevated PSA (ICD-10 - R97.20) pending future lab, lab order given to patient 04/24/2025 Chronic systolic (congestive) heart failure (ICD-10 - I50.22) doing well on meds, will continue current regiment 04/24/2025 Iron deficiency anem ia, unspecified iron deficiency anemia type (ICD-10 - D50.9) is stable and is doing well, will continue current regiment 04/24/2025 Pure hypercholesterolemia (ICD-10 - E78.00) stable 04/24/2025 Essential hypertensi on (ICD-10 - I10) stable, will contiue current regiment 04/24/2025 Prediabetes (ICD-10 - R73.09) stable, no need for medication at this time 04/24/2025 Colon cancer screeni ng (ICD-10 - Z12.11) guaiac negative 04/24/2025 Depression screening (ICD-10 - Z13.31) negative screeen Plan Of Treatment Medication Medication Name Sig Start Date Stop Date Notes Aldactone 25 MG 1 tablet Orally Toprol XL 25 MG 1 tablet Orally Once a day Entresto 49-51 MG 1 tablet Orally Twice a day Furosemide 40 MG 1 tablet Orally once a day Atorvastatin Calcium 40 MG 1 tablet Orally Once a day Treatment Notes Assessment Notes Annual physical exam labs reviewed and d iscussed with patient Elevated PSA pending future lab, lab order given to patient Chronic systolic (congestive) heart fail ure doing well on meds, will continue current regiment Iron deficiency anemia, unsp ecified iron deficiency anemia type is stable and is doing well, will continue current regiment Pure hypercholesterolemia stable Essential hypertension stable, will cont iue current regiment Prediabetes stable, no need for medication at this time Colon cancer screening guaiac negative Depression screening negative screeen Next Appt Details Follow Up: 6 Months, Reason: Provider Name:Blayne sauceda, 10/13/2025 01:30:00 PM, [address] [place] [address], [address] [place] [address], [phone], Provider Name:Blayne sauceda, 04/20/2026 07:00:00 AM, [address] [place] [address], Suite [facility], [place], [place], [phone], Provider Name:Blayne sauceda, 04/26/2026 01:00:00 PM, [address] [place] [address], Suite [facility], [place], [place], [phone], Progress Notes * Stef MCMILLANDOB: [birth year] (64 yo M)Acc No.[id number]:04/24/2025 Progress Notes Patient: Stef DAI Provider: Charlene Sampson MD :1960 A ge:64 Y S ex:Male Date:04/24/2025 Address:[address] [place] [address] Jair grimaldo [phone] Subjective: * Chief Complaints: * A NNUAL / CBACK PSA * HPI: D epression Screening: PHQ-9 L [...] N one. S ymptom(s): patient is a 64 yo male here for annual visit with review of recent labs and follow up of chronic issues. * ROS: G eneral/Constitutional: Change in appetite d enies. C hills d enies. F ever d [...] ? G astrointestinal: Abdominal pain d enies. C hange in bowel habits d enies. D iarrhea d enies. N ausea d enies. R ectal bleeding d enies. V omiting d enies . G enitourinary: Blood in urine d enies. D ifficulty urinating d enies. F requent urination d enies. M usculoskeletal: Painful joints d enies. W eakness d enies. ? S kin: Dry skin d enies. I [...] yrs, heart disease. 4 sister(s) . . MOther-[place] 1 brother 60 [place], Denies mental health/substance abuse family history mother [...] , I nterpretation N egative. M iscellaneous: C affeine: no. Children: no. Community involvements: no. Exercise: yes, tries to ride his bike once a week. Home smoke detector use: no. Marital status: single. Occupation: weeks/months/years, works full-time. Pets: none. Travel outside of the [place]: no. * Medications: T akingClopidogrel Bisulfate 75 MG Tablet 1 tablet Orally Once a day Aspirin 81 MG Tablet Delayed Release 1 tablet Orally Once a day Atorvastatin Calcium 40 MG Tablet 1 tablet Orally Once a day Aldactone 25 MG Tablet 1 tablet Orally Toprol XL 25 MG Tablet Extended Release 24 Hour 1 tablet Orally Once a day Entresto 49-51 MG Tablet 1 tablet Orally Twice a day Furosemide 40 MG Tablet 1 tablet Orally once a day Taking Clopidogrel Bisulfate 75 MG Tablet 1 tablet Orally Once a day Taking Aspirin 81 MG Tablet Delayed Release 1 tablet Orally Once a day Taking Atorvastatin Calcium 40 MG Tablet 1 tablet Orally Once a day Taking Aldactone 25 MG Tablet 1 tablet Orally Taking Toprol XL 25 MG Tablet Extended Release 24 Hour 1 tablet Orally Once a day Taking Entresto 49-51 MG Tablet 1 tablet Orally Twice a day Taking Furosemide 40 MG Tablet 1 tablet Orally once a day Not-Taking/PRNExcedrin Extra Strength 250-250-65 MG Tablet 2 tablets as needed for pain Orally every 6 hrs Medication List reviewed and reconciled with the patientNot-Taking/PRN Excedrin Extra Strength 250-250-65 MG Tablet 2 tablets as needed for pain Orally every 6 hrs Medication List reviewed and reconciled with the patient * Allergies: N .K.D.A.yes[Allergies Verified] Objective: * Vitals: H t: 67.5, Wt: 222, BMI:34.25, BP:92/60, Wt-k.7. * P ast Orders: L ab:IRON PROFILE (Order Date - 04/17/2025) (Collection Date & Time - 04/17/2025 07:08 AM) Value Reference Range Iron 39 L 45-160 - mcg/dL Total Iron Binding Capacity 364 228-428 - mc g/dL Percent Iron Saturation 11 L 15-50 - % Unsaturated Iron Binding 325 - ug/dL L ab:Lipid Panel (Order Date - 04/17/2025) (Collection Date & Time - 04/17/2025 07:08 AM) Value Reference Range Triglycerides 99 <150 - mg/dL Cholesterol 109 <200 - mg/dL LDL Cholesterol Calculated 47 <100 - mg/dL HDL Cholesterol 43 >40 - mg/dL L ab:Microalbumin, Random (Order Date - 04/17/2025) (Collection Date & Time - 04/17/2025 07:15 AM) Value Reference Range Creatinine Urine 92.10 - mg/dL Microalbumin Urine 5.0 - mg/L Microalbum Creatinine Ratio Ur 5.4 <30 - ug/ mg cr L ab:Hemoglobin A1c (Order Date - 04/17/2025) (Collection Date & Time - 04/17/2025 07:08 AM) Value Reference Range Hemoglobin A1c % 5.9 <6.0 - % Estimated Average Glucose 123 - mg/dL L ab:Complete Blood Count Auto Diff (Order Date - 04/17/2025) (Collection Date & Time - 04/17/2025 07:08 AM) Value Reference Range White Blood Count 7.8 4.8-10.8 - X10*3/uL Red Blood Count 5.44 4.60-5.80 - X10*6/uL Hemoglobin 13.3 L 14.0-18.0 - g/dl Hematocrit 42.1 42.0-52.0 - % Mean Corpuscular Volume 77.4 L 80.0-98.0 - fL Mean Corpuscular Hemoglobin 24.4 L 27.0-33.0 - pg Mean Corpuscular HGB Conc 31.6 31.0-36.0 - g/ dl Red Cell Distribution Width 19.3 H 11.0-16.0 - % Platelet Count 238 160-400 - X10*3/uL Mean Platelet Volume 10.8 9.4-12.4 - fL Neutrophils Percent Auto 65.1 45-73 - % Imm Gran Pct Auto 0.1 0.0-0.4 - % Lymphocytes Percent Auto 18.4 L 20-40 - % Monocytes Percent Auto 8.3 2-11 - % Eosinophils Percent Auto 7.6 H 0-4 - % Basophils Percent Auto 0.5 0-2 - % NRBC Pct Auto 0.0 0.0-0.2 - /100WBC Neutrophils Absolute Auto 5.1 2.0-8.3 - x10* 3/uL Imm Gran Abs Auto 0.01 0.00-0.03 - X10*3/uL Lymphocytes Absolute Auto 1.4 1.2-4.9 - X10* 3/uL Monocytes Absolute Auto 0.7 0.1-1.2 - X10*3/ uL Eosinophils Absolute Auto 0.6 H 0.0-0.4 - X10* 3/uL Basophils Absolute Auto 0.0 0.0-0.2 - X10*3/ uL NRBC Abs Auto 0.000 0.0-0.012 - X10*3/uL L ab:UA CC w/rflx Micro + Cult (Order Date - 04/17/2025) (Collection Date & Time - 04/17/2025 07:15 AM) Value Reference Range Color Urine Yellow - Appearance Urine Clear - PH 6.0 5.0-9.0 - Glucose Urine UA Negative Negative - mg/dL Urine Blood Negative Negative - Specific [place] - Urine 1.015 1.005-1.025 - Urine Protein Negative Neg-Trace - mg/dL Urine Ketones Negative Negative - mg/dL Nitrite Urine Negative Negative - Leukocyte Esterase Urine Negative Negative - L ab:Comprehensive [place]. Panel Fast (Order Date - 04/17/2025) (Collection Date & Time - 04/17/2025 07:08 AM) Value Reference Range Sodium 138 135-145 - mmol/L Bilirubin Total 0.6 0.0-1.0 - mg/dL Aspartate Amino Transferase 31 5-37 - U/L Alanine Aminotransferase 24 0-40 - U/L Total Protein 6.1 L 6.5-8.0 - g/dL Albumin Level 3.9 3.5-5.0 - g/dL Alkaline Phosphatase 84 39-117 - U/L Potassium 4.4 3.3-5.1 - mmol/L Chloride 109 H 96-108 - mmol/L Carbon Dioxide 23 22-29 - mmol/L Anion Gap 10 L 12-20 - Blood Urea Nitrogen 16 9-16 - mg/dL Creatinine 0.85 0.5-1.4 - mg/dL Estimated Glomerular Filt Rate > 60 - Glucose Fasting 113 H 60-99 - mg/dL Calcium 9.5 8.4-10.2 - mg/dL * Examination: G eneral Examination: [...] no masses palpable, prostate normal, stool guaiac negative. MALE GENITOURINARY: n o testicular mass, testes descended bilaterally, circumcised. EXTREMITIES: n o clubbing, cyanosis, or edema. NEUROLOGIC: n onfocal, motor strength normal upper and lower extremities, sensory exam intact. Assessment: * Assessment: 1. A nnual physical exam - Z00.00 (Primary) 2 . E levated PSA - R97.20 3 . C hronic systolic (congestive) heart failure - I50.22 4 . I yue deficiency anemia, unspecified iron deficiency anemia type - D50.9 5 . P ure hypercholesterolemia - E78.00 6 . E ssential hypertension - I10 ?7. P rediabetes - R73.09 8 . C olon cancer screening - Z12.11 ?9. D epression screening - Z13.31 Plan: * Treatment: 2. E levated PSA L AB: PSA,Total (Free>4and<10) (Ordered for 05/22/2025) Notes: pending future lab, lab order given to patient 3. C hronic systolic (congestive) heart failure Continue Entresto Tablet, 49-51 MG, 1 tablet, Orally, Twice a day; C ontinue Furosemide Tablet, 40 MG, 1 tablet, Orally, once a day. Notes: doing well on meds, will continue current regiment 4. I yue deficiency anemia, unspecified iron deficiency anemia type Notes: is stable and is doing well, will continue current regiment 5. P ure hypercholesterolemia Continue Atorvastatin Calcium Tablet, 40 MG, 1 tablet, Orally, Once a day. Notes: stable 6. E ssential hypertension Continue Aldactone Tablet, 25 MG, 1 tablet, Orally; C ontinue Toprol XL Tablet Extended Release 24 Hour, 25 MG, 1 tablet, Orally, Once a day. Notes: stable, will contiue current regiment 7. P rediabetes Notes: stable, no need for medication at this time 8. C olon cancer screening L AB: Occult Blood, Stool, Guaiac (Collection Date & Time - 04/24/2025) N egative Value Reference Range O ccult Blood, Stool, Guaiac Neg Notes: guaiac negative??9.?Depression screening? Notes: negative screeen?? * Procedure Codes: 8 2270 TEST FOR BLOOD, FECES * Follow Up: 6 Months * * Sign off status: Completed true * Provider: Charlene Sampson MD Date: 0 04/24/2025 Generated for [place] mccracken/Wally/eTransmitting on: 1 12/07/2024 07:13 AM EST History and Physical Notes * HPI (History of Present Illness) Category Sub-Category Detail Notes Category Not es Symptom(s) patient is a 64 yo male here for annual visit with review of recent labs and follow up of chronic issues Depression Screening PHQ-9 Little inte rest or [...] Total Score: 0 Interpretation and Intervention Depression Scree jannette Findings: Negative Follow-Up for Depression: : review [...] clubbing, cyanosi s, or edema MALE GENITOURINARY: no testicular mass, testes descended bilaterally, circumcised RECTAL EXAM: normal tone, no exte rnal hemorrhoids, no masses palpable, prostate normal, stool guaiac negative ORAL CAVITY: mucosa moist
--- OUTSIDE RECORDS SUMMARY | 2025-05-22 03:00 | XMS_ITS ---
Author Organization Blayne Sampson MD Address [address] [place] [phone] Care Team Providers Care Spool Winder Name Role Phone Blayne Sampson Primary Care Provider [phone] REASON FOR VISIT PSA Encounters Encounter Location Date Provider Diagnosis Blayne Sampson MD [address] [facility] [address] [place] [phone] 05/22/2025 Blayne Sampson Plan Of Treatment Next Appt Details Provider Name:Blayne Rivera ier, 10/13/2025 01:30:00 PM, [facility], Suite [facility], [place], [place], [phone], Provider Name:Blayne Rivera ier, 04/20/2026 07:00:00 AM, [address] [place] [address], Suite [facility], [place], [place], [phone], Provider Name:Blayne Rivera ier, 04/26/2026 01:00:00 PM, [address] [place] [address], Suite [facility], [place], [phone], Progress Notes * Geronimo MCMILLAN: [birth year] (65 yo M)Acc No.[id number]:05/22/2025 Progress Note Patient: Stef DAI Provider: Charlene Sampson MD :1960 A ge:64 Y S ex:Male Date:05/22/2025 Address:[address] [place], [place] [phone] Subjective: * Chief Complaints: * 1 . PSA. * Medical History: Objective: * Vitals: Assessment: Plan: * Treatment: * * The named appointment provid er may or may not be the originator of this progress note, and it is not deemed complete until electronically signed by the appointment provider. Sign off status: Pending * Provider: Charlene Sampson MD Date: 0 05/22/2025 Generated for [place] mccracken/Wally/Maryannitting on: 1 12/07/2024 07:12 AM EST
--- OUTSIDE RECORDS SUMMARY | 2025-06-06 09:15 | XMS_ITS ---
Author Organization Blayne Sampson MD Address [address] [place] [phone] Care Team Providers Care Financial Quantitative Analyst Name Role Phone Blayne Sampson Primary Care Provider [phone] Allergies No Known Allergies REASON FOR VISIT 1 month Medications Medication SIG (Take, Route, Frequency, Duration) Notes Start Date End Date Status Aspirin 81 MG 1 tablet Orally Once a day Active Clopidogrel Bisulfate 75 MG 1 tablet Orally Once a day Active Atorvastatin Calcium 40 MG 1 tablet Orally Once a day Active Excedrin Extra Strength 250-250-65 MG 2 tablets as needed for pain Orally every 6 hrs Not-Taki ng Furosemide 40 MG 1 tablet Orally once a day Active Toprol XL 25 MG 1 tablet Orally Once a day Active Aldactone 25 MG 1 tablet Orally Active Entresto 49-51 MG 1 tablet Orally Twic e a day Active Vital Signs Blood pressure systolic 118 mm Hg 06/06/20 25 Blood pressure diastolic 74 mm Hg 025 Height 67.5 in 06/06/2025 Weight 223 lbs 06/06/2025 BMI 34.41 kg/m2 06/06/2025 Encounters Encounter Location Date Provider Diagnosis Blayne Sampson MD [address] [place], [place] [phone] 06/06/2025 Blayne Sampson Elevated PSA R97.20 Assessments Encounter Date Diagnosis (ICD Code) Assessment Notes Treatment Notes Treatment Clinical Notes Section Notes 06/06/2025 Elevated PSA (ICD-10 - R97.20) is seeing the urologist in end of june / order was given to patient wants to have this done closer to home. Plan Of Treatment Treatment Notes Assessment Notes Elevated PSA is seeing the urolog ist in end of june / order was given to patient wants to have this done closer to home. Next Appt Details Provider Name:Blayne sauceda, 10/13/2025 01:30:00 PM, [address] [place] [address], Suite [facility], [place], [place], [phone], Provider Name:Blayne sauceda, 04/20/2026 07:00:00 AM, [address] [place] [address], [address] [place] [address], [phone], Provider Name:Blayne sauceda, 04/26/2026 01:00:00 PM, [address] [place] [address], Suite [facility], [place], [place], [phone], Progress Notes * Stef MCMILLANDOB: [birth year] (64 yo M)Acc No.[id number]:06/06/2025 Progress Notes Patient: Stef DAI Provider: Charlene Sampson MD :1960 A ge:64 Y S ex:Male Date:06/06/2025 Address:[address] [place] [address] [id number] Subjective: * Chief Complaints: * 1 month * HPI: S ymptom(s): patient is a 64 yo male here for one month follow up visit. * ROS: G eneral/Constitutional: Denies C hills. D enies F atigue. D enies F ever. D enies H eadache. E NT: Denies S ore throat. R espiratory: Denies C ough. D enies S hortness of breath at rest. D enies S hortness of breath with exertion. C ardiovascular: Denies C hest pain at rest. D enies C hest pain with exertion. D enies D izziness. D enies P alpitations. D enies S hortness of breath. G astrointestinal: Denies D iarrhea. D enies N ausea. * Medical History: * Surgical History: * [...] Objective: * Vitals: H t: 67.5, Wt: 223, BMI:34.41, BP:118/74, Wt-k.15. * P ast Orders: L ab:PSA Free and Total (Order Date - 05/22/2025) (Collection Date & Time - 05/22/2025 11:03 AM) Value Reference Range Prostate Specific Ag Total 5.5 A < OR = 4.0 - ng/mL Percent Free Prostate Spec Ag 11 A >25 - % (c alc) Free Prostate Spec Ag 0.6 - ng/mL L ab:PSA,Total (Free>4and<10) (Order Date - 05/22/2025) (Collection Date & Time - 05/22/2025 07:06 AM) Value Reference Range PSA,Total (Free>4and<10) 6.32 H 0.00-4.00 - ng/ mL * Examination: G eneral Examination: GENERAL APPEARANCE: a lert, well hydrated, in no distress.? SKIN: g ood turgor. HEART: n o murmurs, rubs, gallops, regular rate and rhythm.? LUNGS: n o wheezes, rales, rhonchi, good air movement, clear to auscultation bilaterally. Assessment: * Assessment: 1. E levated PSA - R97.20 (Primary) Plan: * Treatment: * Procedure Codes: * * Sign off status: Completed true * Provider: Charlene Sampson MD Date: 0 06/06/2025 Generated for Chester mccracken/Wally/Maryannitting on: 1 12/07/2024 07:11 AM EST History and Physical Notes * HPI (History of Present Illness) Category Sub-Category Detail Notes Category Not es Symptom(s) patient is a 64 yo male here for one month follow up visit Examination Category Sub-Category Detail Notes Category Not es General Examination GENERAL APPEARANCE: alert, w ell hydrated, in no distress HEART: no murmurs, rubs, ga llops, regular rate and rhythm LUNGS: no wheezes, rales, r honchi, good air movement, clear to auscultation bilaterally SKIN: good turgor
--- OUTSIDE RECORDS SUMMARY | 2025-10-06 02:30 | XMS_ITS ---
Author Organization Blayne Sampson MD Address [address] [place] [phone] Care Team Providers Care Shuttle Truck Driver Name Role Phone Blayne Sampson Primary Care Provider REASON FOR VISIT fasting lipids Encounters Encounter Location Date Provider Diagnosis Blayne Sampson MD [address] [place] [id number] 10/06/2025 Blayne Sampson Pure hypercholestero lemia E78.00 and Prediabetes R73.09 Assessments Encounter Date Diagnosis (ICD Code) Assessment Notes Treatment Notes Treatment Clinical Notes Section Notes 10/06/2025 Pure hypercholesterolemia (ICD-10 - E78.00) 10/06/2025 Prediabetes (ICD-10 - R73.09) Plan Of Treatment Pending Test Test Name Order Date Liver Panel 10/06/2025 Glucose Fasting 10/06/2025 Lipid Panel with Reflex 10/06/2025 Hemoglobin A1c 10/06/2025 Next Appt Details Provider Name:Blayne Rivera ier, 10/13/2025 01:30:00 PM, [address], [address], [place], [place], [phone], Provider Name:Blayne Rivera ier, 04/20/2026 07:00:00 AM, [address], [address], [place], [phone], Provider Name:Blayne Rivera ier, 04/26/2026 01:00:00 PM, [address], [address], [place], [phone], Progress Notes * Stef MCMILLANDOB: [birth year] (65 yo M)Acc No.[id number]:10/06/2025 Progress Note Patient: Stef DAI Provider: Charlene Sampson MD :1960 A ge:65 Y S ex:Male Date:10/06/2025 Address:[address] [place] [address] [address] [id number] Subjective: * Chief Complaints: * 1 . Fasting lipids. * Medical History: Objective: * Vitals: Assessment: * Assessment: 1. P ure hypercholesterolemia - E78.00 (Primary) 2 . P rediabetes - R73.09? Plan: * Treatment: 2. P rediabetes L AB: Liver Panel L AB: Glucose Fasting L AB: Lipid Panel with Reflex L AB: Hemoglobin A1c * * The named appointment provid er may or may not be the originator of this progress note, and it is not deemed complete until electronically signed by the appointment provider. Sign off status: Pending * Provider: Charlene Sampson MD Date: 12/07/2024 Generated for Chester [email or web address] on: 12/07/2024 07:13 AM EST
--- OUTSIDE RECORDS SUMMARY | 2025-10-06 07:13 | XMS_ITS | Patient Health Record ---
Author Organization [facility] Address [address] [place] [phone] Care Team Providers Care Sheet Metal Production Worker Name Role Phone Camilla AGUILAR, Blayne Primary Care Provider Eliot Gutierrez Jr Unavailable Reason For Referral No Information Medications Medication SIG (Take, Route, Frequency, Duration) Notes Start Date End Date Status Entresto 97-103 MG Tablet TAKE 1 TABLET BY MOUTH TWICE A DAY Oral; Duration: 30 Active Atorvastatin Calcium 40 MG Tablet TAKE 1 TABLET BY MOUTH EVERY DAY Oral; Duration: 30 Active Spironolactone 25 MG Tablet TAKE 1 TABLE T BY MOUTH EVERY DAY WITH FOOD Oral; Duration: 30 Active Iron 325 (65 Fe) MG Tablet 1 tablet Oral ly Once a day; Duration: 30 day(s) Active Clopidogrel Bisulfate 75 MG Tablet TAKE 1 TABLET BY MOUTH EVERY DAY Oral; Duration: 30 Active Aspirin Low Dose 81 MG Tablet Delayed Release TAKE 1 TABLET BY MOUTH EVERY DAY Oral; Duration: 90 Active Furosemide 40 MG Tablet TAKE 1 TABLET BY MOUTH TWICE A DAY Oral; Duration: 90 Active [...] stop date) Former Smoker NA - NA Social History Drugs/Alcohol: Social Info Question Answer Notes Alcohol Screen Did you have a drink containing alcohol in the past year? No Points 0 Interpretation Negative Tobacco Use: Social Info Question Answer Notes Tobacco Use/Smoking Patient is a former smoker When did you stop smoking? 2017 How long has it been since you last smoked? 1-5 years Additional Details Category Social Info Options Details Miscellaneous: Marital status: single Occupation: disabled Problems Problem Type SNOMED Code ICD Code Onset Dates Problem Status W/U Status Risk Notes Problem Iron deficiency anemia (50080214) Iron deficiency anemia, unspecified iron deficiency anemia type (D50.9) Active confirmed Plan Of Treatment Future Test Test Name Order Date UPPER GI ENDOSCOPY 07/19/2020 COLONOSCOPY 07/19/2020 Insurance Providers Payer Name Payer Address Payer Phone Subscriber Number Group Number Insured Name Patient Relationship to Insured Coverage Start Date Coverage End Date [facility] [place] [place] PROF[employer] L [place]S [address] [place] [address] [phone] [id number] 1 FIORELLA BURROWS Self - patient is the insured MEDICAID OF [place] [address] [place] [address] [phone] [id number] FIORELLA BURROWS Self - patient is the insured Medical (General) History Medical History History ICD Code coronary artery disease with history of [place] and stent placement hypertension diverticulitis elevated cholesterol ischemic cardiomyopathy Surgical History Surgery Date(Month/Year) perforated diverticulitis wi th colostomy, sigmoid resection and Abdulaziz pouch, status post reversal. 2007 shoulder surgery 1988 stent/defibrillator placement, [facility] cardiology
--- OUTSIDE RECORDS SUMMARY | 2025-10-06 07:13 | XMS_ITS | Clinical Summary ---
Author Organization [facility] Address [address] [place] [phone] Phone Care Team Providers Care Forestry Patrolman Name Role Phone Blayne Sampson MD Primary [...] topic Medical Devices Not on file Insurance [facility] [place] NSPG PCP ZANE MOSS [employer] WELLSENSE [...] NSPG PCP [facility]ANE [facility] [employer] Care Teams Forestry Patrolman Relationship Specialty Start Date End Date Blayne Sampson MD [address] [place] [address] [place] [address] PCP - General 11/30/18 Additional Source Comments The information contained in this document represents components of the legal health record. It is not the complete legal health record.[facility]
--- OUTSIDE RECORDS SUMMARY | 2025-10-06 07:13 | XMS_ITS | Patient Health Record ---
Author Organization Blayne Sampson MD Address [address] [place] [phone] Care Team Providers Care [employer] Supervisor Name Role Phone Blayne Sampson Primary Care Provider [phone] Allergies No Known Allergies Results Component Value Reference Range Notes Occult Blood, Stool, Guaiac Reviewed date:04/24/2025 01:34:05 PM Interpretation:Negative Performing Lab: Notes/Report: Negative Occult Blood, Stool, Guaiac Neg Comprehensive Met. Panel Reviewed date:01/06/2025 12:19:16 PM Interpretation: Performing Lab:[facility], [address] [place] [phone] Notes/Report: Sodium 138 135-145 mmol/L Potassium 4.6 [...] Panel Reviewed date:01/06/2025 12:19:01 PM Interpretation: Performing Lab:[facility], [address] [place] [phone] Notes/Report: Bilirubin Direct 0.2 0.0-0.5 mg/dL Lipid Panel Reviewed date:01/06/2025 12:18:51 PM Interpretation: Performing Lab:[facility], [address] [place] [phone] Notes/Report: Triglycerides 100 <150 mg/dL Desirable Triglyceride: [...] NT-proBNP Reviewed date:01/11/2025 03:23:01 PM Interpretation: Performing Lab:[facility], [address] [place] [phone] Notes/Report: NT-proBNP 254 <125 pg/mL THIS TEST WAS PERFORMED AT: [facility]/[address] [phone] DAMIAN VÁZQUEZ MD,PHD PSA Free and Total Reviewed date:04/24/2025 02:30:53 PM Interpretation:MATTHEW 04/24 Performing Lab:[facility], [address] [place] [phone] Notes/Report: Prostate Specific Ag Total 4.7 < [...] 30 93 9 (3)Catalona et al.:SIMÓN 277: [id number] (1996) (4)Catalona et al.:SIMÓN 279: [id number] (1997) (x)These estimates vary with age, ethnicity, [...] mind. PSA was performed using the Kris Nemo Immunoassay method. Values obtained from different assay methods cannot be used interchangeably. PSA levels, regardless of value, should not be interpreted as absolute evidence of the presence or absence of disease. THIS TEST WAS PERFORMED AT: [facility] [address] [place] [phone] CARTER BUCHANAN MD Free Prostate Spec Ag 0.5 UA CC w/rflx Micro + Cult Reviewed date:04/17/2025 05:27:15 PM Interpretation: Performing Lab:[facility], [address] [place] [phone] Notes/Report: Urine, Clean Catch Color Urine Yellow Appearance Urine Clear PH 6.0 5.0-9.0 Glucose Urine UA Negative Negative mg/dL Urine Blood Negative Negative Specific [place] - Urine 1.015 1.005-1.025 Urine Protein Negative Neg-Trace mg/dL Urine Ketones Negative Negative mg/dL Nitrite Urine Negative Negative Leukocyte Esterase Urine Negative Negative PSA,Total (Free>4and<10) Reviewed date:05/23/2025 08:22:12 AM Interpretation: Performing Lab:[facility], [address] [place] [phone] Notes/Report: PSA,Total (Free>4and<10) 6.32 0.00-4.00 ng/mL PSA methodology: [employer] i Chemiluminescent Microparticle Immunoassay (CMIA) PSA Free and Total Reviewed date:05/23/2025 01:38:36 PM Interpretation: Performing Lab:[address] [phone] Notes/Report: Prostate Specific Ag Total 5.5 < [...] 30 93 9 (3)Swathiona et al.:SIMÓN 277: [id number] (1996) (4)Catalona et al.:SIMÓN 279: [id number] (1997) (x)These estimates vary with age, ethnicity, [...] of disease. THIS TEST WAS PERFORMED AT: [facility] [address] [address] CARTER BUCHANAN MD Free Prostate Spec Ag 0.6 PSA,Total (Free>4and<10) Reviewed date:07/04/2025 01:16:48 PM Interpretation: Performing Lab:[facility], [address] [place] [phone] Notes/Report: PSA,Total (Free>4and<10) 6.39 0.00-4.00 ng/mL PSA methodology: [employer] i Chemiluminescent Microparticle Immunoassay (CMIA) PSA Free and Total Reviewed date:07/06/2025 12:58:39 PM Interpretation: Performing Lab:[facility], [address] [place] [phone] Notes/Report: Prostate Specific Ag Total 5.5 < [...] 30 93 9 (3)Catalona et al.:SIMÓN 277: [id number] (1996) (4)Catalona et al.:SIMÓN 279: [id number] (1997) (x)These estimates vary with age, ethnicity, [...] of disease. THIS TEST WAS PERFORMED AT: [facility] [address] [place] [phone] CARTER BUCHANAN MD Free Prostate Spec Ag [...] pt was given the vaccine at [facility]. Flu Vaccine Unknown 06/24/2017 Administered PPSV23 (Pnemovax) Unknown 12/24/2016 Administered had p neumo at [facility] TDaP IM Intramuscular 11/03/2017 Administered pt was given the vaccine at [facility] Fluarix Quadrivalent Unknown 07/12/2018 Administered CV S Fluarix Quadrivalent IM Intramuscular 07/04/2019 Administe red pt was given the vaccine at [facility] in [place]. Prevnar 13 IM Intramuscular 09/27/2019 Administered Tetanus [...] Risk Notes Problem Diverticulitis of small intestine (42718155) Diverticulitis of small intestine (without mention of hemorrhage) (562.01) Active confirmed Problem 307488706 Chronic systolic (congestive) heart failure (I50.22) Active confirmed Problem 81329002 Essential hypert ension (I10) Active confirmed Problem 6132933 Prediabetes (R73.09) Active confirmed Problem 771111719 Acute systolic congestive heart failure (I50.21) Active confirmed Problem Cardiac pacemaker in situ (666212588) History of cardiac pacemaker (Z95.0) Active confirmed Problem 57311320 Iron deficiency anemia, unspecified iron deficiency anemia type (D50.9) Active confirmed Problem 102016723 Pure hypercholesterolemia (E78.00) Active confirmed Problem 042914062 BMI 35.0-35.9,ad ult (Z68.35) Active confirmed Problem 936737649 Eosinophilia, unspecified type (D72.10) Active confirmed Problem 26843353 Iron disorder (E83.10) Active confirme d Vital Signs Blood pressure diastolic 74 mm Hg 06/06/2025 Height 67.5 in 06/06/2025 Blood pressure systolic 118 mm Hg 06/06/2025 Weight 223 lbs 06/06/2025 BMI 34.41 kg/m2 06/06/2025 Encounters Encounter Location Date Provider Diagnosis Blayne Sampson MD [address] [place] [address] Drive [address] [place] [id number] 10/21/2024 Blayne Sampson Essential hypertensi on I10 ; Pure hypercholesterolemia E78.00 and Acute systolic congestive heart failure I50.21 Blayne Sampson MD [address] [place] [address] [phone] 04/24/2025 Blayne Sampson Annual physical exam Z00.00 ; Elevated PSA R97.20 ; Chronic systolic (congestive) heart failure I50.22 ; Iron deficiency anemia, unspecified iron deficiency anemia type D50.9 ; Pure hypercholesterolemia E78.00 ; Essential hypertension I10 ; Prediabetes R73.09 ; Colon cancer screening Z12.11 and Depression screening Z13.31 Blayne Sampson MD [address] [place] [address] [address] [place] [phone] 06/06/2025 Blayne Sampson Elevated PSA R97.20 Assessments [...] 08/01/2011 Next Appt Details Provider Name:Blayne sauceda, 10/13/2025 01:30:00 PM, [address] [place] [address], [address], [place], [place], [phone], Provider Name:Blayne sauceda, 04/20/2026 07:00:00 AM, [address] [place] [address], [address], [place], [place], [phone], Provider Name:Blayne sauceda, 04/26/2026 01:00:00 PM, [address], [address], [place], [place], [phone], Insurance Providers Payer Name Payer Address Payer Phone Subscriber Number Group Number Insured Name Patient Relationship to Insured Coverage Start Date Coverage End Date [employer] MED[employer]ARE [employer]VANTAGE [address] [place] [id number] [phone] [id number] Stef Bustillo Self - patient is the insured MEDICARE [employer] [address] [place] [address] [id number] Stef Bustillo Self - patient is the insured Medical (General) History Medical History History ICD Code Colonoscopy 09/20/12 due in 10 years; colonoscopy booked for 09/11/[address] Prather: Colonoscopy 06/12/23 repeat 5-`0 yr pending path upper endo 09/20/12 with inf lammation duodenum; Upper Endo scheduled for 09/11/[address] Prather Current smoker F17.200 Current smoker
[2025-10-06 10:43] LABS: Alanine Aminotransferase 28 U/L (0-40); Albumin Level 3.8 g/dL (3.5-5.0); Alkaline Phosphatase 86 U/L (39-117); Aspartate Amino Transferase 33 U/L (5-37); Cholesterol 101 mg/dL (<200); HDL Cholesterol 43 mg/dL (>40); Total Protein 6.2 g/dL (6.5-8.0); Triglycerides 121 mg/dL (<150)
== END 2025-10-06 07:10 | disposition home or self-care (01) ==
LOC: HO.HMGCLDS 07:09
PROVIDERS: PCP Internal Medicine; Visit Provider Internal Medicine
DX: R73.09 Other abnormal glucose (principal); E78.00 Pure hypercholesterolemia, unspecified
CPT/HCPCS: 36415; 80061; 80076; 82947; 83036